=== PATIENT | female | born 1935 | race Caucasian/White ===

== ENCOUNTER 2020-04-30 15:38 | Outpatient (REF) | payer MEDICARE, SELFPAY ==
--- NOTE | 2020-04-30 16:00 | MR_ITS ---
EXAMINATION: MR BRAIN WITHOUT CONTRAST CLINICAL INFORMATION: Hallucinations. COMPARISON: None TECHNIQUE: Routine multiprojectional and multisequential images of the brain were obtained without contrast. FINDINGS: There is no restricted diffusion seen to suspect any acute ischemic changes. Scattered T2 signal changes are seen in the periventricular white matter of both cerebral hemispheres. Some of the signals are perpendicular to the lateral ventricles and may represent demyelination in addition to underlying chronic small vessel ischemic changes. Punctate T2 signal visualized in the left posterior dany. There is no flow void sequencing seen on the gradient-echo sequences to suspect any old or acute hemorrhage. There is no midline shift. The lateral ventricles are symmetrical in size and configuration and mildly prominent consistent with mild cerebral volume loss, appropriate for the patient's age. Normal flow void signal is seen in the major cerebral vasculature. The paranasal sinuses and mastoid air cells are well aerated. MR/MR head/brain wo con IMPRESSION: No acute intracranial process seen. Scattered T2 signal changes in deep white matter of both cerebral hemispheres without mass effect. Some of the lesions are perpendicular to the lateral ventricle suspicious for demyelination superimposed or underlying chronic small vessel ischemia. Solitary T2 lesion is also seen in the left dany.
== END 2020-04-30 15:39 | disposition home or self-care (01) ==
LOC: HO.MRI 15:38
PROVIDERS: PCP Family Medicine; Visit Provider Family Medicine
DX: R44.3 Hallucinations, unspecified (principal)
CPT/HCPCS: 70551

== ENCOUNTER 2021-06-13 14:06 | Outpatient (REF) | payer MEDICARE, SELFPAY ==
--- NOTE | ~2021-06-13 | MM_ITS ---
EXAMINATION: MM SCREENING DIGITAL BREAST TOMOSYNTHESIS, BILATERAL CLINICAL INFORMATION: Screening. Asymptomatic. COMPARISON: Mammography: 07/05/2017, 06/19/2016, 06/08/2016 TECHNIQUE: Digital breast tomosynthesis is performed in both the craniocaudal and mediolateral oblique views along with computer-aided detection (CAD). Synthesized 2D images are generated from the tomosynthesis. FINDINGS: There are scattered areas of fibroglandular density (ACR BI-RADS breast composition Category b). There are no significant masses, abnormal calcifications, or other abnormalities. Parenchymal pattern is similar to prior studies. There is no developing density or architectural abnormality. The axilla and skin contours are unremarkable. No significant changes. MM/MM tomosynthesis screening BI IMPRESSION: No mammographic evidence of malignancy. ASSESSMENT: BI-RADS 1: Negative RECOMMENDATION: Routine annual mammography screening. This patient's information was entered into a reminder system with a target due date for their next mammogram.
== END 2021-06-13 14:07 | disposition home or self-care (01) ==
LOC: HO.MAMMO 14:06
PROVIDERS: PCP Family Medicine; Visit Provider Family Medicine
DX: Z12.31 Encounter for screening mammogram for malignant neoplasm of breast (principal)
CPT/HCPCS: 77063; 77067

== ENCOUNTER 2021-10-07 17:36 | Outpatient (REF) | payer OTHER, SELFPAY ==
--- NOTE | ~2021-10-07 | US_ITS ---
EXAMINATION: US VENOUS ULTRASOUND WITH DOPPLER LOWER EXTREMITY, RIGHT CLINICAL INFORMATION: Chronic bilateral edema with worsening of right leg despite Lasix, rule out DVT COMPARISON: None TECHNIQUE: Ultrasound of the deep veins is performed from the hip to the calf with compression sonography and color and pulse Doppler assessment. Spectral analysis with color-flow imaging is performed. FINDINGS: There is normal venous compression and respiratory variation and augmented flow. The visualized common femoral vein, superficial femoral vein, profunda femoral vein, popliteal vein, and the trifurcation region shows no evidence of deep venous thrombosis. Limited evaluation of the calf veins due to underlying edema. If the patient's symptoms persist, followup ultrasound in 5 days 7 days might be of value to exclude proximal propagation from a non-visualized calf vein. US/US venous duplex LE RT IMPRESSION: No DVT demonstrated in the right lower extremity. Subcutaneous edema.
== END 2021-10-07 17:37 | disposition home or self-care (01) ==
LOC: HO.US 17:36
PROVIDERS: PCP Family Medicine; Visit Provider Nurse Practitioner Primary Care
DX: R60.0 Localized edema (principal); M79.89 Other specified soft tissue disorders
CPT/HCPCS: 93971

== ENCOUNTER 2022-01-12 15:47 | Outpatient (REF) | payer OTHER, SELFPAY ==
--- NOTE | ~2022-01-12 | MR_ITS ---
EXAMINATION: MRI OF THE BRAIN WITHOUT CONTRAST CLINICAL INFORMATION: 86-year-old with worsening daily headaches. COMPARISON: 04/30/2020 MRI. TECHNIQUE: Multiplanar multisequence MR imaging of the brain was done without IV contrast. FINDINGS: Brain Volume: Mild generalized diffuse parenchymal volume loss within the limitations of qualitative assessment, similar to the previous exam. Structural: No malformations. Brain and Meninges: DWI sequence demonstrates no restricted diffusion to suggest acute or subacute cerebral ischemia. Redemonstrated are numerous patchy and punctate zones of FLAIR/T2 signal hyperintensity within the subcortical and deeper periventricular white matter of both cerebral hemispheres similar in overall distribution and extent to the previous study but with slight progression in the right mendiola radiata, again consistent with chronic ischemic microangiopathy. Minimal patchy T2 hyperintensity in the dany on the left and a punctate T2 hyperintensity in the left dorsal dany, stable in appearance also likely reflecting chronic ischemic microangiopathy. Gradient refocused imaging demonstrates no evidence for hemorrhage, hemosiderin staining or abnormal mineral deposition. No extra-axial fluid collections, space-occupying process or mass effect are identified. Ventricles and Subarachnoid Spaces: The ventricular system and subarachnoid spaces are consistent with mild volume loss without hydrocephalus, stable in appearance. Orbital Structures: Bilateral lens extractions are noted. Otherwise, the visualized orbital structures are grossly unremarkable within the limitations of the study. Vascular: Signal voids are noted in the visualized major intracranial vessels. Osseous Structures, Sinuses/Mastoids, Extracranial Soft Tissues: Grossly unremarkable. MR/MR head/brain wo con IMPRESSION: 1. Findings most consistent with chronic ischemic microangiopathy in the white matter of both cerebral hemispheres and within the dany with some chronic ischemic changes in the deep capsular structures as well, similar in appearance to the previous exam with slight progression in the right mendiola radiata since prior study. 2. No evidence for hemorrhage, subacute or acute infarction, extra-axial fluid collection, space-occupying process, mass effect or hydrocephalus.
== END 2022-01-12 15:48 | disposition home or self-care (01) ==
LOC: HO.MRI 15:47
PROVIDERS: Visit Provider Family Medicine
DX: R51.9 Headache, unspecified (principal)
CPT/HCPCS: 70551

== ENCOUNTER 2022-07-25 16:44 | Emergency (ER) | payer OTHER, SELFPAY ==
--- NOTE | ~2022-07-25 | CT_ITS ---
EXAMINATION: CT HEAD WITHOUT CONTRAST CLINICAL INFORMATION: Some conjunctival hemorrhage COMPARISON: MRI 01/12/2022 TECHNIQUE: Contiguous axial imaging was performed from the skull base to vertex without intravenous administration of contrast. This CT examination was performed using dose optimization techniques as appropriate, variously including the following: *Automated exposure control *Adjustment of mA and/or kV according to patient size (this includes techniques or standardized protocols for targeted exams where dose is matched to indication/reason for exam; i.e. extremities or head) *Use of iterative reconstruction technique DLP: 525 mGy-cm FINDINGS: No intra-axial or extra-axial hemorrhage. No acute territorial infarct. Ventricles and sulci appear normal. Preservation of betancourt-white matter differentiation. No mass, mass effect, or midline shift. No fracture. The mastoid air cells and visualized paranasal sinuses are clear. CT/CT head/brain wo IV con IMPRESSION: No acute intracranial pathology.
--- NOTE | 2022-07-25 16:55 | ED_ITS ---
HPI - Eye Problem General Chief complaint: Eye Problems <THOMAS Elizabeth - Last Filed: 07/25/22 17:07> Stated complaint: Eye swelling, headache, history of sinus strokes <THOMAS Elizabeth Last Filed: 07/25/22 17:07> Time Seen by Provider: 07/25/22 18:22 <THOMAS Elizabeth Last Filed: 07/25/22 17:07> Source: patient and family <THOMAS Tellez Last Filed: 07/25/22 20:38> Mode of arrival: ambulatory <THOMAS Tellez Last Filed: 07/25/22 20:38> Limitations: no limitations <THOMAS Tellez Last Filed: 07/25/22 20:38> History of Present Illness HPI Narrative: 87-year-old female history of CVA, early dementia presenting to the emerg ency department with daughters were concerned patient's right eye appears bloody, and patient has been having headache since yesterday. According to daughter and patient last night patient had a frontal headache described as pressure, felt like her typical, hours later patient noted that her right eye appeared to have blood in it. This is never happened to her before. Patient is taking aspirin however no other blood thinners. Patient states she has been having intermittent headache since last night, no headache at the moment. Patient tells me her right eye feels uncomfortable however denies vision changes, pain. Patient does not wear contact lenses. Patient denies nausea, vomiting, chest pain, shortness of breath, dizziness, weakness. Family brought her in for evaluation mainly for the right eye they tell me and they are concerned because she has a history of ?mini strokes <THOMAS Tellez Last Filed: 07/25/22 20:38> Related Data Home medications: Previous Rx's Medication Instructions Recorded cephalexin 500 mg tablet 500 mg PO Q6H 10 days #40 tabs 07/25/22 epinephrine 0.3 mg/0.3 mL 0.3 mg (0.3 mL) IM Q4H PRN 07/25/22 injection, auto-injector (EpiPen anaphylaxis #2 ea 2-Lavelle) <THOMAS Elizabeth Last Filed: 07/25/22 17:07> Allergies/adverse reactions: Allergies Allergy/AdvReac Type Severity Reaction Status Date / Time penicillin V Allergy Intermediate Rash Verified 07/25/22 19:26 Penicillins Allergy Intermediate RASH Verified 07/25/22 19:26 From Lipitor Allergy Intermediate ITCHING Uncoded 01/18/20 16:56 From Toprol XL Allergy Intermediate ITCHING Uncoded 01/18/20 16:56 gabapentin Allergy Unknown Unknown Uncoded 07/25/22 19:26 lipitor Allergy Unknown Unknown Uncoded 07/25/22 19:26 lyrica Allergy Unknown Unknown Uncoded 07/25/22 19:26 <THOMAS Elizabeth - Last Filed: 07/25/22 17:07> Review of Systems Review of Systems: Constitutional : No Weight loss, No Fever, No Chills, No Fatigue, No Malaise ENT/Mouth : No sore throat, No Rhinorrhea Eyes: No Eye Pain, No Swelling, + Redness Cardiovascular : No Chest Pain, No SOB, No Dyspnea on Exertion, No Orthopnea, No Edema, No Palpitations Respiratory : No Cough, No Sputum, No Wheezing Gastrointestinal : No Nausea, No Vomiting, No Diarrhea, No Constipation, No abdominal Pain, No Hematochezia, No Melena Genitourinary : No Dysuria, No Urinary Frequency, No Hematuria, Musculoskeletal : No joint pain, No Myalgias, No Joint Swelling Skin : No Skin Lesions, No rash Neuro : No Weakness, No Numbness, No Dizziness, No Headache Psych : No Anxiety/Panic, No Depression All other systems reviewed and are negative <TOHMAS Tellez - Last Filed: 07/25/22 20:38> Yes all other systems are reviewed and are negative <THOMAS Tellez - Last Filed: 07/25/22 20:38> [facility] Past Medical History Attestation statement: The following information was validated with the patient. <THOMAS Tellez - Last Filed: 07/25/22 20:38> Source: old records reviewed and nursing notes reviewed <THOMAS Tellez Last Filed: 07/25/22 20:38> Social History Social History: Social History Alcohol intake: never Smoked in Last 30 Days: No Use of substances other than those prescribed or required for medical reasons: No Advance Directives: No Advance Directives Information Provided: No <THOMAS Elizabeth - Last Filed: 07/25/22 17:07> Physical Exam Vital Signs: Vital Signs: Last Vital Signs Temp 97 F 07/25/22 20:15 Pulse 81 07/25/22 20:15 Resp 15 07/25/22 20:15 BP 149/51 H 07/25/22 20:15 Pulse Ox 98 07/25/22 20:15 O2 Del Method Room Air 07/25/22 20:15 BMI result Body Mass Index 32.9 <THOMAS Elizabeth - Last Filed: 07/25/22 17:07> Vital Signs: Last Vital Signs Temp 97 F 07/25/22 20:15 Pulse 81 07/25/22 20:15 Resp 15 07/25/22 20:15 BP 149/51 H 07/25/22 20:15 Pulse Ox 98 07/25/22 20:15 O2 Del Method Room Air 07/25/22 20:15 BMI result Body Mass Index 32.9 Vital signs stable <THOMAS Tellez - Last Filed: 07/25/22 20:38> Appearance: Alert.? Oriented X3.? No acute distress.? Head: Normocephalic, atraumatic, no step-offs or deformities Eyes: Pupils equal, round and reactive to light.? Right eye with subconjunctival hemorrhage images below. Normal left eye. No pain with eye movements. Extraocular movements intact. There is slight erythema surrounding the right eye that is warm. Eye pressures: L 12, R 9 ENT: Pharynx normal.? Neck: Normal inspection.? Neck supple.? CVS: Normal heart rate and rhythm.? Pulses normal.? Respiratory: No respiratory distress.? Breath sounds normal.? Abdomen: Soft and nontender.? Skin: Skin warm and dry.? Normal skin color.? Normal skin turgor.? Extremities: No lower extremity edema.? No calf ttp. Global weakness Neuro: Oriented X 3.? No motor deficit.? No sensory deficit. CN 2-12 intact . Normal [id number], negative Romberg and pronator drift. 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 <THOMAS Tellez - Last Filed: 07/25/22 20:38> Course Course Course Narrative: RME--87yo F w/PMHx CVA on ASA, dementia c/o complaining of right eye erythema since waking this morning with associated headache. Patient wears glasses denies contacts. Family also reports intermittent bruising. Denies trauma/injury. Denies headache at present. Denies vision change/loss Diffusely erythematous right eye subconjunctival hemorrhage, no hyphema, no evidence of globe rupture, PERRLA, EOMs intact. No evidence of trauma Labs, INR, visual acuity <THOMAS Elizabeth Last Filed: 07/25/22 17:07> Reevaluation(s) Reevaluation #1: CBC with slight leukopenia, chemistry without acute electrolyte abnormalities requiring intervention. Coags unremarkable. Head CT pending. Neuro exam nonfocal. Negative NIH stroke scale. Pending CT. <THOMAS Tellez Last Filed: 07/25/22 20:38> Time: 18:52 <THOMAS Tellez Last Filed: 07/25/22 20:38> Reevaluation #2: Normal eye pressures. Patient reports no headache and she feels fine. CT of the head with no acute intracranial pathology. Patient feels well. NIH stroke scale 0. Only global weakness noted. Will have her follow-up with ophthalmology. No signs of TIA, stroke, posterior stroke. She did get Keflex for erythema surrounding right eye, tolerated it well. Although she does have an allergy to penicillin I did send her home with an EpiPen educated patient and family on proper use in case patient has an alert allergic reaction however I have low suspicion for this. Educated patient on diagnosis and treatment plan, answered all question, patient verbalizes understanding. At this time patient will be discharged home, advised to return with new or worsening symptoms. Educated on worrisome signs and symptoms and when to return. At this time I feel comfortable discharge home. <THOMAS Tellez - Last Filed: 07/25/22 20:38> Time: 20:37 <THOMAS Tellez Last Filed: 07/25/22 20:38> Consultations Consultation #1: This case was discussed with my attending who agrees with diagnosis and treatment plan. <THOMAS Tellez - Last Filed: 07/25/22 20:38> Medications Administered Discontinued Medications Generic Name Dose Route Start Last Admin Trade Name Freq PRN Reason Stop Dose Admin Cephalexin HCl 500 mg 07/25/22 19:15 07/25/22 19:26 Cephalexin 500 Mg Capsule PO 07/25/22 19:16 500 mg ONCE ONE Administration Morphine Sulfate 15 mg 07/25/22 19:17 07/25/22 19:27 Morphine Sulfate Immed Release 15 Mg Tablet PO 07/25/22 19:18 15 mg ONCE ONE Administration <THOMAS Elizabeth - Last Filed: 07/25/22 17:07> Medications Administered Discontinued Medications Generic Name Dose Route Start Last Admin Trade Name Freq PRN Reason Stop Dose Admin Cephalexin HCl 500 mg 07/25/22 19:15 07/25/22 19:26 Cephalexin 500 Mg Capsule PO 07/25/22 19:16 500 mg ONCE ONE Administration Morphine Sulfate 15 mg 07/25/22 19:17 07/25/22 19:27 Morphine Sulfate Immed Release 15 Mg Tablet PO 07/25/22 19:18 15 mg ONCE ONE Administration <THOMAS Tellez - Last Filed: 07/25/22 20:38> Medical Decision Making Medical Decision Making [facility] Narrative: 1825 87-year-old female presents for evaluation of red eye with possible blood, and headaches intermittent since yesterday. No trauma. Not on blood thinners. Physical exam with right-sided subconjunctival hemorrhage with surrounding perio rbital erythema and warmth. No painful eye movements. Regular rate and rhythm. Lungs clear. Abdomen soft nontender nondistended. Global weakness however no focal neuro deficits. Cerebellar function intact. Likely subconjunctival hemorrhage with right periorbital cellulitis. No signs of orbital cellulitis. Unlikely stroke, posterior stroke, TIA, wet macular degeneration or acute closed angle glaucoma. Plan at this time basic labs, head CT, eye pressures, <THOMAS Tellez Last Filed: 07/25/22 20:38> Differential Diagnosis Differential Diagnoses: The differential diagnosis associated with the presentation includes <THOMAS Tellez Last Filed: 07/25/22 20:38> Likely subconjunctival hemorrhage with right periorbital cellulitis. No signs of orbital cellulitis. Unlikely stroke, posterior stroke, TIA, wet ma cular degeneration or acute closed angle glaucoma. <THOMAS Tellez - Last Filed: 07/25/22 20:38> Admission/Observation Consideration of admission/observation: Escalation of care including admission/observation considered <THOMAS Tellez - Last Filed: 07/25/22 20:38> Unlikely <THOMAS Tellez - Last Filed: 07/25/22 20:38> Lab Data MDM Lab Attestation statement: I reviewed the patient's lab results. <THOMAS Tellez - Last Filed: 07/25/22 20:38> Result Diagrams: 07/25/22 17:20 07/25/22 17:20 <THOMAS Elizabeth - Last Filed: 07/25/22 17:07> Labs: Lab Results 07/25/22 07/25/22 07/25/22 Range/Units 17:20 17:20 17:20 WBC 4.2 L (4.8-10.8) X10*3/uL RBC 4.01 L (4.20-5.50) X10*6/uL Hgb 12.2 (12.0-16.0) g/dl Hct 37.6 (37.0-47.0) % MCV 93.8 (80.0-98.0) fL MCH 30.4 (27.0-33.0) pg MCHC 32.4 (31.0-35.0) g/dl RDW 13.7 (11.0-16.0) % Plt Count 174 (160-400) X10*3/uL MPV 10.8 (9.4-12.3) fL Immature Gran % (Auto) 0.5 H (0.0-0.4) % Neut % (Auto) 55.9 (45-73) % Lymph % (Auto) 31.7 (20-40) % Smith % (Auto) 11.7 H (2-11) % Eos % (Auto) 0.0 (0-4) % Baso % (Auto) 0.2 (0-2) % Lymph # (Auto) 1.3 (1.2-4.9) X10*3/uL Smith # (Auto) 0.5 (0.1-1.2) X10*3/uL Eos # (Auto) 0.0 (0.0-0.4) X10*3/uL Baso # (Auto) 0.0 (0.0-0.2) X10*3/uL Abs Immat Gran (auto) 0.02 (0.00-0.03) X10*3/uL Absolute Neuts (auto) 2.3 (2.0-8.3) x10*3/uL Absolute Nucleated RBC 0.000 (0.0-0.012) X10*3/uL Nucleated RBC % (auto) 0.0 (0.0-0.2) /100WBC PT 10.5 (10.0-13.1) SEC INR 0.9 (0.9-1.1) Sodium 140 (135-145) mmol/L Potassium 4.1 (3.3-5.1) mmol/L Chloride 107 (96-108) mmol/L Carbon Dioxide 24 (22-29) mmol/L Anion Gap 13 (12-20) BUN 17 H (9-16) mg/dL Creatinine 1.09 (0.5-1.4) mg/dL Estim Creat Clear Calc 36.6 Estimated GFR 48 Random Glucose 110 (60-115) mg/dL Calcium 9.4 (8.4-10.2) mg/dL <THOMAS Elizabeth - Last Filed: 07/25/22 17:07> Lab Results 07/25/22 07/25/22 07/25/22 Range/Units 17:20 17:20 17:20 WBC 4.2 L (4.8-10.8) X10*3/uL RBC 4.01 L (4.20-5.50) X10*6/uL Hgb 12.2 (12.0-16.0) g/dl Hct 37.6 (37.0-47.0) % MCV 93.8 (80.0-98.0) fL MCH 30.4 (27.0-33.0) pg MCHC 32.4 (31.0-35.0) g/dl RDW 13.7 (11.0-16.0) % Plt Count 174 (160-400) X10*3/uL MPV 10.8 (9.4-12.3) fL Immature Gran % (Auto) 0.5 H (0.0-0.4) % Neut % (Auto) 55.9 (45-73) % Lymph % (Auto) 31.7 (20-40) % Smith % (Auto) 11.7 H (2-11) % Eos % (Auto) 0.0 (0-4) % Baso % (Auto) 0.2 (0-2) % Lymph # (Auto) 1.3 (1.2-4.9) X10*3/uL Smith # (Auto) 0.5 (0.1-1.2) X10*3/uL Eos # (Auto) 0.0 (0.0-0.4) X10*3/uL Baso # (Auto) 0.0 (0.0-0.2) X10*3/uL Abs Immat Gran (auto) 0.02 (0.00-0.03) X10*3/uL Absolute Neuts (auto) 2.3 (2.0-8.3) x10*3/uL Absolute Nucleated RBC 0.000 (0.0-0.012) X10*3/uL Nucleated RBC % (auto) 0.0 (0.0-0.2) /100WBC PT 10.5 (10.0-13.1) SEC INR 0.9 (0.9-1.1) Sodium 140 (135-145) mmol/L Potassium 4.1 (3.3-5.1) mmol/L Chloride 107 (96-108) mmol/L Carbon Dioxide 24 (22-29) mmol/L Anion Gap 13 (12-20) BUN 17 H (9-16) mg/dL Creatinine 1.09 (0.5-1.4) mg/dL Estim Creat Clear Calc 36.6 Estimated GFR 48 Random Glucose 110 (60-115) mg/dL Calcium 9.4 (8.4-10.2) mg/dL <THOMAS Tellez - Last Filed: 07/25/22 20:38> Independent Interpretation I performed an independent interpretation of an: CT Scan <THOMAS Tellez - Last Filed: 07/25/22 20:38> Radiology Impression Discussion of test interpretation with radiology: I have reviewed the radiologist's reading. <THOMAS Tellez - Last Filed: 07/25/22 20:38> Core Measures AMI core measures followed: Yes <THOMAS Tellez - Last Filed: 07/25/22 20:38> Measure exclusions: not indicated <THOMAS Tellez - Last Filed: 07/25/22 20:38> Critical Care Time Critical Care Time Critical Care Time: No <THOMAS Tellez - Last Filed: 07/25/22 20:38> Discharge Plan Discharge Clinical Impression: Subconjunctival hemorrhage, Periorbital cellulitis, Headache <THOMAS Elizabeth - Last Filed: 07/25/22 17:07> Patient Disposition: Home, Self-Care <THOMAS Elizabeth - Last Filed: 07/25/22 17:07> Instructions: Cellulitis (ED), Subconjunctival Hemorrhage (ED), Acute Headache (DC) <THOMAS Elizabeth - Last Filed: 07/25/22 17:07> Additional Instructions: Take your medications as prescribed. If you were prescribed antibiotics today, it is important that you take your medication to their entirety, do not skip any doses, do not finish them early. Follow-up with your primary care provider this week. Return to the emergency department with new or worsening symptoms. Such as fevers, chills, chest pain, shortness of breath, nausea, vomiting, dizziness, headache, vision changes, lethargy In case of emergency call 911 The subconjunctival hemorrhage should get better on its own and reabsorb. Follow-up with ophthalmology information below EpiPen has been sent to the pharmacy in case patient reacts to Keflex although I have low suspicion. I educated on proper use. Use this is indicated only if patient has shortness of breath, trouble breathing or trouble controlling secretions. CT/CT head/brain wo IV con IMPRESSION: No acute intracranial pathology. ? <THOMAS Elizabeth Last Filed: 07/25/22 17:07> Prescriptions: New cephalexin 500 mg tablet 500 mg PO Q6H 10 Days Qty: 40 0RF epinephrine [EpiPen 2-Lavelle] 0.3 mg/0.3 mL auto-injector 0.3 mg IM Q4H PRN (Reason: anaphylaxis) Qty: 2 0RF <THOMAS Elizabeth - Last Filed: 07/25/22 17:07> Referrals: Jama Claros [Physician] - 3 days Cecilia Finch DO [Primary Care Provider] - 3 days <THOMAS Elizabeth - Last Filed: 07/25/22 17:07>
[2022-07-25 16:58] VITALS: BP 178/58; PULSE 60; RESP 18; TEMP 36.3; O2SAT 100; BMI 32.9
[2022-07-25 17:14] VITALS: BP 173/55; PULSE 68; RESP 16; TEMP 36.1; O2SAT 98
[2022-07-25 17:25] LABS: MANUAL DIFF FLAG NO
[2022-07-25 17:29] LABS: Basophils Percent Auto 0.2 % (0-2); Hematocrit 37.6 % (37.0-47.0); Hemoglobin 12.2 g/dl (12.0-16.0); Imm Gran Abs Auto 0.02 X10*3/uL (0.00-0.03); Imm Gran Pct Auto 0.5 % (0.0-0.4); Lymphocytes Absolute Auto 1.3 X10*3/uL (1.2-4.9); Lymphocytes Percent Auto 31.7 % (20-40); Mean Corpuscular HGB Conc 32.4 g/dl (31.0-35.0); Mean Corpuscular Hemoglobin 30.4 pg (27.0-33.0); Mean Corpuscular Volume 93.8 fL (80.0-98.0); Mean Platelet Volume 10.8 fL (9.4-12.3); Monocytes Absolute Auto 0.5 X10*3/uL (0.1-1.2); Monocytes Percent Auto 11.7 % (2-11); Neutrophils Absolute Auto 2.3 x10*3/uL (2.0-8.3); Neutrophils Percent Auto 55.9 % (45-73); Platelet Count 174 X10*3/uL (160-400); Red Blood Count 4.01 X10*6/uL (4.20-5.50); Red Cell Distribution Width 13.7 % (11.0-16.0); White Blood Count 4.2 X10*3/uL (4.8-10.8)
--- NOTE | 2022-07-25 17:35 | PC.NURSE ---
pt alert, aware of being in the hospital but not oriented to specific place or time. pt has diagnosis of dementia. Pt hypertensive, vitals otherwise stable. Pt reports frequent headaches, but not at this time, pt c/o 2/10 pain below right eye. blood noted in right eye sclera. Vision test not obtained at this time due to pt being unable to read letters. pt was able to identify number of fingers being held up by RN. Pt denies vision changes.
[2022-07-25 17:39] LABS: INTERNATIONAL NORM RATIO 0.9 (0.9-1.1); Prothrombin Time 10.5 SEC (10.0-13.1)
[2022-07-25 17:51] LABS: Anion Gap 13 (12-20); Blood Urea Nitrogen 17 mg/dL (9-16); Calcium 9.4 mg/dL (8.4-10.2); Carbon Dioxide 24 mmol/L (22-29); Chloride 107 mmol/L (96-108); Creatinine Clr Calc Pharmacy 36.6; Estimated Glomerular Filt Rate 48; Glucose Random 110 mg/dL (60-115); Potassium 4.1 mmol/L (3.3-5.1); Sodium 140 mmol/L (135-145)
[2022-07-25] MEDS: cephALEXin 500 MG CAPSULE PO (19:26)
[2022-07-25] MEDS: Morphine Sulfate Immed Release 15 MG TABLET PO (19:27)
--- NOTE | 2022-07-25 19:28 | PC.NURSE ---
provider was notified pt acuity was unable to be done as she is unable to read-provider ok with that. pt medicated per order- provider cleared abx to be given despite allergy to penicillin. family at bedside, call chi withn reach, will continue to monitor.
[2022-07-25 20:15] VITALS: BP 149/51; PULSE 81; RESP 15; TEMP 36.1; O2SAT 98
[2022-07-25] MEDS: diphenhydrAMINE HCL 25 MG CAPSULE 50 MG PO (20:44)
--- NOTE | 2022-07-25 20:44 | PC.NURSE ---
patient had notable hives only to left arm, provider notified, pt medicated with benadryl per order, will monitor and discharge shortly
== END 2022-07-25 21:40 | disposition home or self-care (01) ==
PROVIDERS: Physician Assistant; Emergency Provider Emergency Medicine; PCP Family Medicine
DX: H11.31 Conjunctival hemorrhage, right eye (principal); L03.213 Periorbital cellulitis; R51.9 Headache, unspecified
CPT/HCPCS: 36415; 70450; 80048; 85025; 85610; 99284

== ENCOUNTER 2023-05-28 13:20 | Outpatient (REF) | payer OTHER, SELFPAY ==
[2023-05-28 16:19] LABS: MANUAL DIFF FLAG NO
[2023-05-28 16:23] LABS: Basophils Percent Auto 0.2 % (0-2); Eosinophils Percent Auto 0.2 % (0-4); Hematocrit 35.2 % (37.0-47.0); Hemoglobin 11.4 g/dl (12.0-16.0); Imm Gran Abs Auto 0.01 X10*3/uL (0.00-0.03); Imm Gran Pct Auto 0.2 % (0.0-0.4); Lymphocytes Absolute Auto 1.5 X10*3/uL (1.2-4.9); Lymphocytes Percent Auto 31.5 % (20-40); Mean Corpuscular HGB Conc 32.4 g/dl (31.0-35.0); Mean Corpuscular Volume 95.7 fL (80.0-98.0); Mean Platelet Volume 11.7 fL (9.4-12.3); Monocytes Absolute Auto 0.6 X10*3/uL (0.1-1.2); Monocytes Percent Auto 13.8 % (2-11); Neutrophils Absolute Auto 2.5 x10*3/uL (2.0-8.3); Neutrophils Percent Auto 54.1 % (45-73); Platelet Count 145 X10*3/uL (160-400); Red Blood Count 3.68 X10*6/uL (4.20-5.50); White Blood Count 4.6 X10*3/uL (4.8-10.8)
[2023-05-28 16:34] LABS: Estimated Average Glucose 114 mg/dL; Hemoglobin A1c % 5.6 % (<6.0)
[2023-05-28 16:53] LABS: Alanine Aminotransferase 21 U/L (0-31); Albumin Level 3.8 g/dL (3.5-5.0); Alkaline Phosphatase 148 U/L (39-117); Anion Gap 15 (12-20); Aspartate Amino Transferase 37 U/L (5-31); Bilirubin Direct 0.2 mg/dL (0.0-0.5); Bilirubin Total 0.5 mg/dL (0.0-1.0); Blood Urea Nitrogen 29 mg/dL (9-16); Calcium 9.8 mg/dL (8.4-10.2); Carbon Dioxide 23 mmol/L (22-29); Chloride 108 mmol/L (96-108); Cholesterol 181 mg/dL (<200); Estimated Glomerular Filt Rate 35; Glucose Random 108 mg/dL (60-115); HDL Cholesterol 78 mg/dL (>40); LDL Cholesterol Calculated 92 mg/dL (<100); Potassium 4.5 mmol/L (3.3-5.1); Sodium 141 mmol/L (135-145); Triglycerides 58 mg/dL (<150)
[2023-05-28 16:56] LABS: Creatinine Urine 156.61 mg/dL; Microalbum/Creatinine Ratio Ur 13.4 ug/mg cr (<30)
[2023-05-28 16:58] LABS: Free T4 (Free Thyroxine) 1.02 ng/dL (0.71-1.85); Thyroid Stimulating Hormone 1.91 uIU/mL (0.32-4.0); Vitamin D 25-OH Total 35.4 ng/mL (>30)
== END 2023-05-28 13:21 | disposition home or self-care (01) ==
LOC: HO.HHCL 13:20
PROVIDERS: Visit Provider Family Medicine
DX: E11.22 Type 2 diabetes mellitus with diabetic chronic kidney disease (principal); N18.30 Chronic kidney disease, stage 3 unspecified
CPT/HCPCS: 36415; 80048; 80061; 80076; 82043; 82306; 82570; 83036; 84439; 84443; 85025

== ENCOUNTER 2023-12-13 13:07 | Outpatient (REF) | payer OTHER, SELFPAY ==
[2023-12-13 14:20] LABS: Anion Gap 12 (12-20); Blood Urea Nitrogen 28 mg/dL (9-16); Calcium 9.3 mg/dL (8.4-10.2); Carbon Dioxide 25 mmol/L (22-29); Chloride 107 mmol/L (96-108); Estimated Glomerular Filt Rate 26; Glucose Random 199 mg/dL (60-115); Potassium 3.8 mmol/L (3.3-5.1); Sodium 140 mmol/L (135-145)
[2023-12-13 14:26] LABS: B Type Natriuretic Peptide 127 pg/mL (<100)
== END 2023-12-13 13:08 | disposition home or self-care (01) ==
LOC: HO.LAB 13:07
PROVIDERS: PCP Family Medicine; Visit Provider Internal Medicine Cardiovascular Disease
DX: I27.20 Pulmonary hypertension, unspecified (principal)
CPT/HCPCS: 36415; 80048; 83880

== ENCOUNTER 2024-01-10 12:54 | Outpatient (REF) | payer OTHER, SELFPAY ==
[2024-01-10 13:21] LABS: MANUAL DIFF FLAG NO
[2024-01-10 13:53] LABS: Basophils Percent Auto 0.4 % (0-2); Hematocrit 32.1 % (37.0-47.0); Hemoglobin 10.1 g/dl (12.0-16.0); Imm Gran Abs Auto 0.03 X10*3/uL (0.00-0.03); Imm Gran Pct Auto 0.6 % (0.0-0.4); Lymphocytes Absolute Auto 1.5 X10*3/uL (1.2-4.9); Lymphocytes Percent Auto 29.1 % (20-40); Mean Corpuscular HGB Conc 31.5 g/dl (31.0-35.0); Mean Corpuscular Hemoglobin 29.6 pg (27.0-33.0); Mean Corpuscular Volume 94.1 fL (80.0-98.0); Mean Platelet Volume 10.6 fL (9.4-12.3); Monocytes Absolute Auto 0.5 X10*3/uL (0.1-1.2); Monocytes Percent Auto 9.9 % (2-11); Neutrophils Absolute Auto 3.1 x10*3/uL (2.0-8.3); Platelet Count 148 X10*3/uL (160-400); Red Blood Count 3.41 X10*6/uL (4.20-5.50); Red Cell Distribution Width 14.3 % (11.0-16.0); White Blood Count 5.2 X10*3/uL (4.8-10.8)
[2024-01-10 14:17] LABS: B Type Natriuretic Peptide 222 pg/mL (<100)
[2024-01-10 14:27] LABS: Anion Gap 13 (12-20); Blood Urea Nitrogen 24 mg/dL (9-16); Calcium 9.5 mg/dL (8.4-10.2); Carbon Dioxide 24 mmol/L (22-29); Chloride 108 mmol/L (96-108); Estimated Glomerular Filt Rate 36; Sodium 141 mmol/L (135-145)
[2024-01-10 14:28] LABS: Anion Gap 12 (12-20); Blood Urea Nitrogen 23 mg/dL (9-16); Calcium 9.6 mg/dL (8.4-10.2); Carbon Dioxide 23 mmol/L (22-29); Chloride 109 mmol/L (96-108); Estimated Glomerular Filt Rate 34; Glucose Random 157 mg/dL (60-115); Sodium 140 mmol/L (135-145)
[2024-01-10 15:29] LABS: Appearance Urine Cloudy; Color Urine Dark Yellow; Glucose Urine UA Negative (Negative); Leukocyte Esterase Urine Trace (Negative); Nitrite Urine Negative (Negative); PH 5.5 (5.0-9.0); Specific Gravity - Urine >= 1.030 (1.005-1.025); UMIC TRIGGER UA YES; Urine Blood Negative (Negative); Urine Ketones Trace mg/dL (Negative); Urine Protein Trace mg/dL (Neg-Trace)
[2024-01-10 15:34] LABS: Bacteria Urine 3+ (None Seen); RBC Urine 0-2 /HPF (0-2); WBC Urine 0-5 /HPF (0-5)
[2024-01-10 17:30] LABS: Creatinine Urine 220.19 mg/dL; Protein/Creatinine Ratio, Ur 0.12 (<0.2); Total Protein Urine Random 26 mg/dL (<12)
== END 2024-01-10 12:55 | disposition home or self-care (01) ==
LOC: HO.LAB 12:54
PROVIDERS: Absent Provider Internal Medicine Nephrology; PCP Family Medicine; Visit Provider Internal Medicine Cardiovascular Disease
DX: I12.9 Hypertensive chronic kidney disease with stage 1 through stage 4 chronic kidney disease, or unspecified chronic kidney disease (principal); N18.31 Chronic kidney disease, stage 3a; N25.0 Renal osteodystrophy
CPT/HCPCS: 36415; 80048; 80051; 81001; 82043; 82310; 82565; 82570; 83880; 84156; 84520; 85025

== ENCOUNTER 2024-03-17 13:47 | Outpatient (REF) | payer OTHER, SELFPAY ==
--- NOTE | ~2024-03-17 | US_ITS ---
EXAMINATION: US ABDOMEN COMPLETE CLINICAL INFORMATION: Intermittent right upper quadrant pain. COMPARISON: CT abdomen and pelvis 04/07/2016. Ultrasound abdomen 04/03/2009. TECHNIQUE: Real-time imaging of the abdominal viscera. FINDINGS: PANCREAS: The visualized portion of the pancreas head and body are normal, portion of the pancreatic body and tail, not visualized are obscured by bowel gas. ABDOMINAL AORTA: Visualized portion of the aorta is normal, distal aorta obscured by bowel gas. INFERIOR VENA CAVA: Visualized portions are normal. LIVER: Heterogeneous liver texture could be sequela of underlying liver parenchymal disease. The liver is normal in size. The liver contour is normal. Parenchymal echogenicity is normal. No focal hepatic lesion. There is no intrahepatic biliary duct dilatation seen. GALLBLADDER: Normal. The gallbladder is physiologically distended without evidence of stones, sludge, polyps, wall thickening or pericholecystic fluid. COMMON BILE DUCT: Normal in caliber measuring 0.4-0.6 cm in diameter. RIGHT KIDNEY: Normal. No hydronephrosis. No renal calculi or focal parenchymal lesions. The kidney measures 8.2 cm in maximum dimension. LEFT KIDNEY: Normal. No hydronephrosis. No renal calculi or focal parenchymal lesions. The kidney measures 8.0 cm in maximum dimension. SPLEEN: Normal. The spleen measures 10.9 cm in maximum dimension. FREE FLUID: None. US/US abdomen complete IMPRESSION: 1. No ultrasound evidence of gallbladder disease or gallstones. 2. Heterogeneous liver texture could be sequela of underlying liver parenchymal disease such as liver cirrhosis. Electronically signed by: Gurjit Yi MD 03/19/2024 07:31 PM [facility]
== END 2024-03-17 13:48 | disposition home or self-care (01) ==
LOC: HO.US 13:47
PROVIDERS: PCP Family Medicine; Visit Provider Family Medicine
DX: R10.11 Right upper quadrant pain (principal)
CPT/HCPCS: 76700

== ENCOUNTER 2024-05-08 13:51 | Outpatient (REF) | payer OTHER, SELFPAY ==
[2024-05-08 14:46] LABS: Hematocrit 35.1 % (37.0-47.0); Hemoglobin 11.1 g/dl (12.0-16.0); Mean Corpuscular HGB Conc 31.6 g/dl (31.0-35.0); Mean Corpuscular Hemoglobin 29.8 pg (27.0-33.0); Mean Corpuscular Volume 94.4 fL (80.0-98.0); Mean Platelet Volume 10.9 fL (9.4-12.3); Platelet Count 153 X10*3/uL (160-400); Red Blood Count 3.72 X10*6/uL (4.20-5.50); Red Cell Distribution Width 14.2 % (11.0-16.0); White Blood Count 4.7 X10*3/uL (4.8-10.8)
[2024-05-08 14:54] LABS: INTERNATIONAL NORM RATIO 0.9 (0.9-1.1); Prothrombin Time 10.9 SEC (10.9-12.4)
[2024-05-08 14:56] LABS: Estimated Average Glucose 117 mg/dL; Hemoglobin A1C 112.3288 umol/L; Hemoglobin A1c % 5.7 % (<6.0); Partial Thromboplastin Time 36.6 SEC (26.0-36.8); Total Hemoglobin (HGBA1C) 2871.7081 umol/L
[2024-05-08 15:15] LABS: Creatinine Urine 208.08 mg/dL; Microalbum/Creatinine Ratio Ur 5.7 ug/mg cr (<30)
[2024-05-08 16:18] LABS: Alanine Aminotransferase 16 U/L (0-31); Albumin Level 3.7 g/dL (3.5-5.0); Alkaline Phosphatase 143 U/L (39-117); Amylase 78 U/L (28-100); Anion Gap 11 (12-20); Aspartate Amino Transferase 46 U/L (5-31); Bilirubin Direct 0.3 mg/dL (0.0-0.5); Bilirubin Total 0.8 mg/dL (0.0-1.0); Blood Urea Nitrogen 26 mg/dL (9-16); Calcium 9.6 mg/dL (8.4-10.2); Carbon Dioxide 23 mmol/L (22-29); Chloride 112 mmol/L (96-108); Cholesterol 161 mg/dL (<200); Estimated Glomerular Filt Rate 36; Free T4 (Free Thyroxine) 1.23 ng/dL (0.71-1.85); Glucose Random 117 mg/dL (60-115); HDL Cholesterol 72 mg/dL (>40); LDL Cholesterol Calculated 77 mg/dL (<100); Lipase 27 U/L (8-78); Potassium 4.3 mmol/L (3.3-5.1); Sodium 142 mmol/L (135-145); Thyroid Stimulating Hormone 1.45 uIU/mL (0.32-4.0); Total Protein 6.9 g/dL (6.5-8.0); Triglycerides 63 mg/dL (<150); Vitamin D 25-OH Total 27.8 ng/mL (>30)
== END 2024-05-08 13:52 | disposition home or self-care (01) ==
LOC: HO.LAB 13:51
PROVIDERS: PCP Family Medicine; Visit Provider Internal Medicine Cardiovascular Disease
DX: I89.0 Lymphedema, not elsewhere classified (principal); E11.22 Type 2 diabetes mellitus with diabetic chronic kidney disease; N18.30 Chronic kidney disease, stage 3 unspecified; R23.3 Spontaneous ecchymoses; I10 Essential (primary) hypertension; R10.11 Right upper quadrant pain
CPT/HCPCS: 36415; 80048; 80061; 80076; 82043; 82150; 82306; 82570; 83036; 83690; 84439; 84443; 85027; 85610; 85730

== ENCOUNTER 2024-10-04 15:50 | Outpatient (REF) | payer OTHER, SELFPAY ==
--- NOTE | ~2024-10-04 | US_ITS ---
EXAMINATION: US TRIPLEX LOWER EXTREMITY, LEFT CLINICAL INFORMATION: Left leg edema. COMPARISON: None available. TECHNIQUE: Color-flow triplex imaging with spectral analysis and compression Doppler were performed on the left lower extremity. FINDINGS: Respiratory variation, normal compression and augmented flow are noted throughout the left lower extremity. The visualized common femoral vein, superficial femoral vein, profunda femoral vein, popliteal vein and midcalf peroneal and posterior tibial venous segments show no evidence of deep venous thrombosis. There is no Dowell's cyst. US/US venous duplex LE LT IMPRESSION: No evidence of deep venous thrombosis involving the left lower extremity. Electronically signed by: Alessio Hinojosa MD 10/05/2024 09:17 AM EDT
--- OUTSIDE RECORDS SUMMARY | 2024-10-04 15:52 | XMS_ITS | Encounter Summary ---
Author Organization [employer] Address [address] [place] [address] Care Team Providers Care Oncology Transplant Network Manager Name Role Phone Cecilia Finch DO Primary Care Provider [phone] Reason for Visit * Reason Onset Date Comments Hospital Follow-up 11/08/2023 Encounter Details Date Type Department Care Team ([facility] st Contact Info) Description 11/08/2023 Telephone [facility] [address] [place] [address] Cecilia Finch DO [address] [place] [address] Hospital Follow-up Social History Tobacco Use Types Packs/Day Years Used Date Smoking Tobacco: Former Cigarettes Passive Smoke Exposure: Never Smokeless Tobacco: Never Alcohol Use Standard Drinks/Week Comments Never 0 (1 standard drink = 0.6 oz pur e alcohol) Depression Answer Date Recorded Patient Health Questionnaire-9 Score 1 06/11/2022 Housing Stability Answer Date Recorded What is your housing situation today? I have dee rm 09/21/[address] you li ve. Do you have problems with any of the following? Mold 09/21/2023 Food Insecurity Answer Date Recorded Within the past 12 months, y ou worried that your food would run out before you got money to buy more: Never True 09/21/2023 Within the past 12 months,th e food you bought just didn't last and you didn't have enough money to get more: Never True Transportation Answer Date Recorded In the past 12 months, has l ack of transportation kept you from medical appts, meetings, work or from getting things needed for daily living? No 09/21/2023 Utilities Answer Date Recorded In the past 12 months, has t he electric, gas, oil or water company threatened to shut off services in your home? No 09/21/2023 Depression Answer Date Recorded Patient Health Questionnaire-2 Score 1 06/11/2022 Comments Unknown Sex and Gender Information Value Date Recorded Sex Assigned at Female 03/02/2022 10:16 AM EDT Legal Sex Female 10:16 AM EDT Gender Identity Female 03/02/2022 10:16 AM EDT Sexual Orientation Straight 03/02/2022 10 :16 AM EDT documented as of this encounter Miscellaneous Notes * Telephone Encounter - Pauline Medina - 11/08/2023 1:50 PM EDT Tc from pt requesting a HDF appt. Hospital: [facility] Date of admission: 11/03/23 Discharge date: 11/07/23 Diagnosed: chest pain and fluid retention documented in this encounter Plan of Treatment Upcoming Encounters Date Type Department Care Team (Late st Contact Info) Description 10/20/2024 11:00 AM EDT Telemedicine [facility] [address] [place] [address] Surekha George RN documented as of this encounter Visit Diagnoses Not on filedocumented in this encounter Additional Health Concerns Assessment Noted Time PHQ-9 Depression Total Score: 1 06/11/19 23 1:29 PM EST documented as of this encounter Care Teams Oncology Transplant Network Manager Relationship Specialty Start Date End Date Cecilia Finch DO [address] [place] [address] PCP - General Family Medicine 01/09/13 documented as of this encounter
== END 2024-10-04 15:51 | disposition home or self-care (01) ==
LOC: HO.US 15:50
PROVIDERS: PCP Family Medicine; Visit Provider Family Medicine
DX: R60.0 Localized edema (principal)
CPT/HCPCS: 93971

== ENCOUNTER → 2024-10-04 16:17 | Outpatient (BNV) | payer OTHER, SELFPAY | PROVIDERS: PCP Family Medicine; Visit Provider Radiology Diagnostic Radiology | DX: R60.0 Localized edema (principal) | CPT/HCPCS: 93971 ==

== ENCOUNTER 2024-10-27 16:44 | Emergency (ER) | payer OTHER, SELFPAY ==
--- NOTE | ~2024-10-27 | CT_ITS ---
CLINICAL HISTORY: trauma CT Brain without contrast Comparison: CT/SR - CT HEAD/BRAIN WO IV CON - 07/25/22 19:06 EDT FINDINGS: Cortical sulci: There is diffuse prominence of the cortical sulci compatible with age-related atrophy. Ventricles: Normal for age Brain parenchyma: There is patchy lucency throughout the deep white matter indicating chronic microvascular leukomalacia. Extra axial spaces: Small hyperdensity of the left frontal area series 4, image 44. Posterior Fossa: Normal Extracranial soft tissues: Normal Additional abnormality: None IMPRESSION: Small hyperdensity of the left frontal area is likely to be imaging artifact. A small subdural hematoma can not be totally excluded by the current examination. CT head follow-up is recommended. This document has been electronically signed by: Asad Disla MD on 10/27/2024 18:59:15
--- NOTE | ~2024-10-27 | XR_ITS ---
CLINICAL HISTORY: trauma 4 view right knee Comparison: None provided Findings: No fractures or dislocations. Severe degenerative changes of the knee with joint space narrowing of the lateral compartment and osteophytes. No joint effusion. There is soft tissue edema of the knee. No radiopaque foreign body. IMPRESSION: 1. No acute findings. Severe degenerative change of the knee. This document has been electronically signed by: Asad Disla MD on 10/27/2024 18:00:25
--- NOTE | ~2024-10-27 | CT_ITS ---
CLINICAL HISTORY: trauma CT cervical spine without contrast Comparison: None provided Findings: Vertebral alignment is within normal limits. There is mild degenerative change. Acute displaced fracture of the C5 spinous process. Possible linear lucency of the left C4 and C5 articular facets seen on the lateral view series 32, image 38. Visualized intracranial contents are unremarkable. No cervical fluid collections or masses. Lung apices are clear. IMPRESSION: Acute displaced fracture of the C5 spinous process. Possible linear lucency of the left C4 and C5 articular facets. Acute nondisplaced fracture can not be excluded. This document has been electronically signed by: Asad Disla MD on 10/27/2024 18:51:43
--- NOTE | ~2024-10-27 | CT_ITS ---
CLINICAL HISTORY: trauma CT maxillofacial without contrast Comparison: None provided Findings: Acute mildly displaced fractures of the nasal bone. Temporomandibular joints are intact. Paranasal sinuses and mastoid air cells clear. Orbital contents within normal limits. Visualized intracranial contents are within normal limits. No foreign bodies. IMPRESSION: Acute fractures of the nasal bone. This document has been electronically signed by: Asad Disla MD on 10/27/2024 19:09:26
--- NOTE | ~2024-10-27 | XR_ITS ---
CLINICAL HISTORY: trauma 4 view left knee Comparison: None provided Findings: No fractures or dislocations. Severe degenerative changes of the knee with joint space narrowing and osteophytes. There are soft tissue calcifications adjacent to the distal femur. No joint effusion. No radiopaque foreign body. IMPRESSION: 1. No acute findings. Severe degenerative change of the knee. This document has been electronically signed by: Asad Disla MD on 10/27/2024 18:00:16
[2024-10-27 17:09] VITALS: BP 146/58; BP 149/45; PULSE 72; RESP 18; TEMP 36.4; O2SAT 100; O2SAT 97; BMI 27.8
[2024-10-27 17:16] VITALS: BP 149/45; PULSE 72; RESP 18; TEMP 36.4; O2SAT 100
--- NOTE | 2024-10-27 17:22 | ECG_ITS ---
Test Reason : fall Blood Pressure : */* mmHG Vent. Rate : 68 BPM Atrial Rate : 68 BPM P-R Int : 180 ms QRS Dur : 108 ms QT Int : 450 ms P-R-T Axes : 62 -30 56 degrees QTcB Int : 478 ms Normal sinus rhythm Left axis deviation Moderate voltage criteria for LVH, may be normal variant ( R in aVL , Rodríguez product ) Abnormal ECG When compared with ECG of 03-Apr-2014 13:44, No significant change was found Referred By: Rk Acharya Electronically Signed By: MERLE YOUNG
[2024-10-27 18:00] VITALS: BP 134/40; PULSE 70; RESP 12; TEMP 37.1; O2SAT 98
[2024-10-27 19:12] LABS: MANUAL DIFF FLAG NO
[2024-10-27 19:19] LABS: Basophils Absolute Auto 0.1 X10*3/uL (0.0-0.2); Basophils Percent Auto 0.9 % (0-2); Eosinophils Absolute Auto 0.4 X10*3/uL (0.0-0.4); Eosinophils Percent Auto 4.4 % (0-4); Hemoglobin 10.1 g/dl (12.0-16.0); Imm Gran Abs Auto 0.08 X10*3/uL (0.00-0.03); Imm Gran Pct Auto 0.9 % (0.0-0.4); Lymphocytes Absolute Auto 1.2 X10*3/uL (1.2-4.9); Lymphocytes Percent Auto 12.8 % (20-40); Mean Corpuscular HGB Conc 32.6 g/dl (31.0-35.0); Mean Corpuscular Hemoglobin 30.3 pg (27.0-33.0); Mean Corpuscular Volume 93.1 fL (80.0-98.0); Mean Platelet Volume 10.5 fL (9.4-12.3); Monocytes Absolute Auto 0.6 X10*3/uL (0.1-1.2); Monocytes Percent Auto 6.5 % (2-11); Neutrophils Absolute Auto 6.7 x10*3/uL (2.0-8.3); Neutrophils Percent Auto 74.5 % (45-73); Platelet Count 145 X10*3/uL (160-400); Red Blood Count 3.33 X10*6/uL (4.20-5.50); Red Cell Distribution Width 15.4 % (11.0-16.0)
[2024-10-27 19:31] LABS: Alanine Aminotransferase 28 U/L (0-31); Albumin Level 3.1 g/dL (3.5-5.0); Alkaline Phosphatase 154 U/L (39-117); Anion Gap 11 (12-20); Bilirubin Total 0.8 mg/dL (0.0-1.0); Blood Urea Nitrogen 27 mg/dL (9-16); Calcium 8.2 mg/dL (8.4-10.2); Carbon Dioxide 22 mmol/L (22-29); Chloride 115 mmol/L (96-108); Creatinine Clr Calc Pharmacy 24.8; Estimated Glomerular Filt Rate 31; Glucose Random 150 mg/dL (60-115); Lipase 76 U/L (8-78); Potassium 3.8 mmol/L (3.3-5.1); Sodium 144 mmol/L (135-145)
[2024-10-27] MEDS: Lidocaine HCl 1 % 20 ML VIAL 10 ML INFILTRATI (19:36)
[2024-10-27 19:41] LABS: Aspartate Amino Transferase 51 U/L (5-31)
--- NOTE | 2024-10-27 20:41 | ED_ITS ---
HPI - General Adult General Chief complaint: Fall Stated complaint: mechanical fall, knee pain Time Seen by Provider: 10/27/24 17:14 Source: patient, family (granddaughter), RN notes reviewed, old records reviewed and medical assisting program director Mode of arrival: EMS Limitations: language barrier History of Present Illness ED Provider: Marck HPI narrative: 89-year-old female with a past medical history significant for dementia, hyperlipidemia, peripheral edema, constipation presents for evaluation after a fall. The patient was at her daughter's house which is next door. The patient has tried walking to the bathroom when she tripped falling face 1st. She landed on her nose and her knees. There was no reported loss of consciousness. She is not anticoagulated but does take a baby aspirin daily At the time my evaluation the patient denies any pain, she does arrive in a C- collar EMS reported the patient was complaining of neck pain, the patient denies neck pain to me. She has a laceration to her forehead and her nose Related Data Previous Rx's ?Medication ?Instructions ?Recorded doxycycline hyclate 100 mg capsule 100 mg PO BID 10 da ys #20 caps 07/25/22 epinephrine 0.3 mg/0.3 mL 0.3 mg (0.3 mL) IM Q4H PRN 0 07/25/22 injection, auto-injector (EpiPen anaphylaxis #2 ea 2-Lavelle) Allergies Allergy/AdvReac Type Severity Reaction Status Date / Time penicillin V Allergy Intermediate Rash Verified 10/27/24 17:14 Penicillins Allergy Intermediate RASH Verified 10/27/24 17:14 From Lipitor Allergy Intermediate ITCHING Uncoded 10/27/24 17:14 From Toprol XL Allergy Intermediate ITCHING Uncoded 10/27/24 17:14 gabapentin Allergy Unknown Unknown Uncoded 10/27/24 17:14 lipitor Allergy Unknown Unknown Uncoded 10/27/24 17:14 lyrica Allergy Unknown Unknown Uncoded 10/27/24 17:14 Review of Systems 2 Constitutional: Constitutional: Denies chills, Denies fever(s), Denies frequent falls and Denies headache(s) Eyes: Eyes: Denies blurry vision and Denies exophthalmos ENT: Denies dizziness, Denies dry mouth, Denies ear discharge and Denies headache(s) Cardiovascular: Cardiovascular: Denies chest pain, Denies chest pain at rest and Denies dyspnea on exertion Respiratory: Respiratory: Denies cough and Denies dyspnea on exertion Gastrointestinal: Gastrointestinal: Denies abdominal pain, Denies nausea and Denies vomiting Musculoskeletal: Musculoskeletal: Denies arthralgias, Reports joint swelling and Denies limited range of motion Integumentary/Breasts: Skin/Breast: Denies rash and Reports unusual bruising Neurologic: Denies dizziness, Denies frequent falls and Denies headache(s) Psychiatric: Psychiatric: Denies anxiety PMFSH Social History Social History (System 05/28/23 @ 15:11 by Penny Graf) Alcohol intake: never Advance Directives: Yes Advance Directives Information Provided: Yes Advance Directives on File: No Do you have a plan to hurt others: No Plan Physical Exam ED Vital Signs: Vital Signs - 24 hr 10/27/24 17:09 10/27/24 17:16 10/27/24 18:00 Temperature 97.6 F 97.6 F 98.7 F Pulse Rate 72 72 70 Respiratory Rate 18 18 12 Blood Pressure 149/45 H 149/45 H 134/40 L Pulse Oximetry 100 100 98 Oxygen Delivery Method Room Air Room Air Room Air BMI result Body Mass Index 27.8 Const General: healthy appearing, comfortable, no acute distress, alert and awake Nutritional Appearance: well nourished Orientation/consciousness: patient oriented x3 HENMT Other: There is an L shaped laceration to the bridge of the nose. There is surrounding ecchymosis. There is a 2 cm linear laceration to the right frontal temporal region Throat: Yes posterior oropharynx normal Eyes Eyelids: Yes eyelids normal Conjunctivae: conjunctivae normal Sclerae: sclerae normal Corneas: corneas normal Pupils: Equal, round and reactive pupils present EOM: EOMs intact bilaterally Neck Other: C-collar present Neck: No full ROM Resp Effort & Inspection: normal respiratory effort, able to speak in complete sentences and not labored Back/Spine/Pelvis Cervical Spine: collar present Skin General skin exam: elasticity normal Neuro General: patient oriented x3 Cranial nerves: Yes Equal, round and reactive pupils present and Yes Bilaterally intact EOM present Extrem Other: Moving all extremities well. Ecchymosis to the bilateral knees with the patient is able to flex them Course Reevaluation(s) Reevaluation #1: Patient's CT scan show bilateral nasal bone fractures, she also has a questionable small intracranial hemorrhage. By my view this is most likely artifact, however there was a trauma with a fall from standing position. The patient also is in a C-collar and has a C5 spinous fracture and a questionable C4 and C5 articular facet nondisplaced fractures. Due to the questionable intracranial hemorrhage and cervical spine fractures we will discuss with [facility] trauma line Time: 20:05 Reevaluation #2: Received call back from [facility] trauma team, the patient will be accepted to [facility] Emergency Department as a trauma consult. I updated the granddaughter at bedside, images were uploaded to the [employer] power chair and the patient will be booked for transport to [facility] Emergency Department. Time: 21:17 Medications Administered Discontinued Medications Generic Name Dose Route Start Last Admin Trade Name Harrison PRN Reason Stop Dose Admin Lidocaine HCl 10 ml 10/27/24 19:26 10/27/24 19:36 Lidocaine Hcl 1 % 20 Ml Vial INFILTRATI 10/27/24 19:27 10 ml ONCE ONE Administration Procedures Laceration Laceration 1: Site: face (Forehead) Side (If applicable): right Size (cm): 2 Description: linear Depth: simple, single layer Local Anesthetic: lidocaine 1% Amount of anesthesia used (mL): 3 Pre-repair: wound explored, irrigated extensively and deep structures intact Skin layer closed with: nylon Size (cm): 5-0 Number of sutures: 4 Technique: simple, interrupted Laceration 2: Site: face (Nasal bridge) Size (cm): 2 Description: irregular ( L-shaped ) Depth: simple, single layer Local Anesthetic: lidocaine 1% Amount of anesthesia used (mL): 2 Pre-repair: wound explored and irrigated extensively Skin layer closed with: nylon Size (cm): 5-0 Number of sutures: 4 Technique: simple, interrupted Medical Decision Making Medical Decision Making MDM Narrative: 89-year-old female presents for evaluation after a witnessed nonsyncopal fall. She tripped over the divider between the bathroom and the hallway. She fell face 1st striking her nose and landing on her knees. X-rays of the knees were ordered. I also ordered a CT scan of the brain, cervical spine and facial bones. The patient arrives in a C-collar which she will remain on until radiology reports. The patient's daughter is here who reports the patient is acting appropriately and at her baseline, she is conversive but does forget what happened frequently due to her dementia. Otherwise there are no focal neuro deficits. She is moving all extremities well, no facial droop. The 2 larger lacerations we will be sutured, see procedure note Differential Diagnosis Differential Diagnoses: The differential diagnosis associated with the presentation includes Facial fracture Intracranial hemorrhage Skull fracture Cervical spine fracture Contusion Knee fracture Laceration Lab Data MDM Lab Attestation statement: I reviewed the patient's lab results. No leukocytosis. The patient has a mild normocytic anemia consistent with a labs back to May 22, 2023. Platelet count is at her baseline of 126994. Chemistries are significant for a chloride of 115, elevated BUN of 27 with a creatinine of 1.59 comfortable with these are consistent with the patient's baseline. Glucose is elevated to 150 but no evidence of DKA, CO2 in his within normal limits in the anion gap is low at 11. 10/27/24 19:08 10/27/24 19:08 Labs: Lab Results 10/27/24 Range/Units 19:08 WBC 9.0 (4.8-10.8) X10*3/uL RBC 3.33 L (4.20-5.50) X10*6/uL Hgb 10.1 L (12.0-16.0) g/dl Hct 31.0 L (37.0-47.0) % MCV 93.1 (80.0-98.0) fL MCH 30.3 (27.0-33.0) pg MCHC 32.6 (31.0-35.0) g/dl RDW 15.4 (11.0-16.0) % Plt Count 145 L (160-400) X10*3/uL MPV 10.5 (9.4-12.3) fL Immature Gran % (Auto) 0.9 H (0.0-0.4) % Neut % (Auto) 74.5 H (45-73) % Lymph % (Auto) 12.8 L (20-40) % Ingham % (Auto) 6.5 (2-11) % Eos % (Auto) 4.4 H (0-4) % Baso % (Auto) 0.9 (0-2) % Lymph # (Auto) 1.2 (1.2-4.9) X10*3/uL Ingham # (Auto) 0.6 (0.1-1.2) X10*3/uL Eos # (Auto) 0.4 (0.0-0.4) X10*3/uL Baso # (Auto) 0.1 (0.0-0.2) X10*3/uL Abs Immat Gran (auto) 0.08 H (0.00-0.03) X10*3/uL Absolute Neuts (auto) 6.7 (2.0-8.3) x10*3/uL Absolute Nucleated RBC 0.000 (0.0-0.012) X10*3/uL Nucleated RBC % (auto) 0.0 (0.0-0.2) /100WBC Sodium 144 (135-145) mmol/L Potassium 3.8 (3.3-5.1) mmol/L Chloride 115 H (96-108) mmol/L Carbon Dioxide 22 (22-29) mmol/L Anion Gap 11 L (12-20) BUN 27 H (9-16) mg/dL Creatinine 1.59 H (0.5-1.4) mg/dL Estim Creat Clear Calc 24.8 Estimated GFR 31 Random Glucose 150 H (60-115) mg/dL Calcium 8.2 L D (8.4-10.2) mg/dL Total Bilirubin 0.8 (0.0-1.0) mg/dL AST 51 H (5-31) U/L ALT 28 (0-31) U/L Alkaline Phosphatase 154 H (39-117) U/L Total Protein 6.0 L (6.5-8.0) g/dL Albumin 3.1 L (3.5-5.0) g/dL Lipase 76 (8-78) U/L Independent Interpretation I performed an independent interpretation of an: CT Scan (Questionable left fronto temporal bleed versus artifact favored to be artifact) Radiology Impression Discussion of test interpretation with radiology: I have reviewed the radiologist's reading. Radiologist Impression: Findings: Acute mildly displaced fractures of the nasal bone. Temporomandibular joints are intact. Paranasal sinuses and mastoid air cells clear. Orbital contents within normal limits. Visualized intracranial contents are within normal limits. No foreign bodies. IMPRESSION: Acute fractures of the nasal bone. This document has been electronically signed by: Asad Disla MD on 10/27/2024 19:09:26 FINDINGS: Cortical sulci: There is diffuse prominence of the cortical sulci compatible with age-related atrophy. Ventricles: Normal for age Brain parenchyma: There is patchy lucency throughout the deep white matter indicating chronic microvascular leukomalacia. Extra axial spaces: Small hyperdensity of the left frontal area series 4, image 44. Posterior Fossa: Normal Extracranial soft tissues: Normal Additional abnormality: None IMPRESSION: Small hyperdensity of the left frontal area is likely to be imaging artifact. A small subdural hematoma can not be totally excluded by the current examination. CT head follow-up is recommended. This document has been electronically signed by: Asad Disla MD on 10/27/2024 18:59:15 Findings: Vertebral alignment is within normal limits. There is mild degenerative change. Acute displaced fracture of the C5 spinous process. Possible linear lucency of the left C4 and C5 articular facets seen on the lateral view series 32, image 38. Visualized intracranial contents are unremarkable. No cervical fluid collections or masses. Lung apices are clear. IMPRESSION: Acute displaced fracture of the C5 spinous process. Possible linear lucency of the left C4 and C5 articular facets. Acute nondisplaced fracture can not be excluded. This document has been electronically signed by: Asad Disla MD on 10/27/2024 18:51:43 Findings: No fractures or dislocations. Severe degenerative changes of the knee with joint space narrowing of the lateral compartment and osteophytes. No joint effusion. There is soft tissue edema of the knee. No radiopaque foreign body. IMPRESSION: 1. No acute findings. Severe degenerative change of the knee. This document has been electronically signed by: Asad Disla MD on 10/27/2024 18:00:25 Findings: No fractures or dislocations. Severe degenerative changes of the knee with joint space narrowing and osteophytes. There are soft tissue calcifications adjacent to the distal femur. No joint effusion. No radiopaque foreign body. IMPRESSION: 1. No acute findings. Severe degenerative change of the knee. This document has been electronically signed by: Asad Disla MD on 10/27/2024 18:00:16 Discharge Plan Discharge Clinical Impression: Fracture of nasal bone, C5 cervical fracture, Facial laceration Patient Disposition: Xfer Acute Care Hospital Transfer Details: [facility] emergency department Prescriptions: No Action epinephrine [EpiPen 2-Lavelle] 0.3 mg/0.3 mL auto-injector 0.3 mg IM Q4H PRN (Reason: anaphylaxis) Qty: 2 0RF doxycycline hyclate 100 mg capsule 100 mg PO BID 10 Days Qty: 20 0RF Print Language: Greenlandic
[2024-10-27 21:17] VITALS: BP 121/37; PULSE 71; RESP 14; TEMP 36.5; O2SAT 100
--- NOTE | 2024-10-27 22:48 | PC.NURSE ---
Reprt to Deonte at [facility]
[2024-10-27 23:08] VITALS: BP 121/37; PULSE 71; RESP 14; TEMP 36.6; O2SAT 100
== END 2024-10-27 23:12 | disposition short-term general hospital (02) ==
PROVIDERS: Physician Assistant; Emergency Provider Emergency Medicine Emergency Medical Services; PCP Family Medicine
DX: S02.2XXA Fracture of nasal bones, initial encounter for closed fracture (principal); S12.400A Unspecified displaced fracture of fifth cervical vertebra, initial encounter for closed fracture; S01.81XA Laceration without foreign body of other part of head, initial encounter; S01.21XA Laceration without foreign body of nose, initial encounter; W01.0XXA Fall on same level from slipping, tripping and stumbling without subsequent striking against object, initial encounter; Y93.89 Activity, other specified; Y92.009 Unspecified place in unspecified non-institutional (private) residence as the place of occurrence of the external cause; Y99.9 Unspecified external cause status
CPT/HCPCS: 12013; 36415; 70450; 70486; 72125; 73562; 80053; 83690; 85025; 93005; 99285; J2003

== ENCOUNTER → 2024-10-27 17:21 | Outpatient (BNV) | payer OTHER, SELFPAY | PROVIDERS: PCP Family Medicine; Visit Provider Nuclear Medicine | DX: S12.400A Unspecified displaced fracture of fifth cervical vertebra, initial encounter for closed fracture (principal); S02.2XXA Fracture of nasal bones, initial encounter for closed fracture; R90.82 White matter disease, unspecified; M25.562 Pain in left knee; M25.561 Pain in right knee | CPT/HCPCS: 70450; 70486; 72125; 73562 ==

== ENCOUNTER → 2024-10-27 17:22 | Outpatient (BNV) | payer OTHER, SELFPAY | PROVIDERS: Emergency Provider Emergency Medicine Emergency Medical Services; PCP Family Medicine; Visit Provider Internal Medicine | DX: R94.31 Abnormal electrocardiogram [ECG] [EKG] (principal); W19.XXXA Unspecified fall, initial encounter | CPT/HCPCS: 93010 ==

== ENCOUNTER 2025-02-07 13:16 | Inpatient (IN) | payer OTHER, SELFPAY ==
--- NOTE | ~2025-02-07 | XR_ITS ---
EXAMINATION: XR HIP, LEFT CLINICAL INFORMATION: r/o fx hip COMPARISON: None available. TECHNIQUE: Two views of the left hip. Pelvis 1 view. FINDINGS: There is a acute fracture involving the proximal left femoral shaft, mildly comminuted with a dominant oblique fracture plane. There is medial and posterior displacement of the distal bone by shaft width, with prominent overriding of the fracture fragments. There is lateral/anterior angulation of the proximal bone. The left femoral head is well-seated in the acetabulum. Mild left hip arthritis. Normal articulation of the right hip joint. No diastasis of the SI joints or symphysis pubis. No acute pubic rami fractures identified. No acute fractures identified of the pelvis. Bowel gas and stool projected over the sacrum and coccyx limiting evaluation. No abnormal soft tissue calcification. XR/XR hip LT w PEL1V IMPRESSION: Acute, mildly comminuted proximal femoral shaft fracture with bony displacement, angulation of the fracture fragments as detailed above.. Electronically signed by: Perry Meadows MD 02/07/2025 04:00 PM EDT
--- NOTE | ~2025-02-07 | FL_ITS ---
EXAMINATION: XR FLUOROSCOPY WITH IMAGES CLINICAL INFORMATION: Fracture left hip COMPARISON: None available. TECHNIQUE: Fluoroscopy provided to: Dr. Medley Fluoroscopy time: 1.3 minutes DAP: 0.5 mGycm2 Images: 4 FINDINGS: 4 images demonstrate internal fixation with intramedullary mikayla and screw of a proximal femoral fracture. Improved position and alignment as compared to previous. FL/FL guidance in OR IMPRESSION: Status post internal fixation of a proximal femoral fracture. Electronically signed by: Perry Meadows MD 02/09/2025 03:45 PM EDT
--- NOTE | ~2025-02-07 | XR_ITS ---
EXAMINATION: XR CHEST CLINICAL INFORMATION: pre op COMPARISON: None available. TECHNIQUE: AP view of the chest was obtained. FINDINGS: Mild elevation of the left hemidiaphragm. The cardiac, hilar, and mediastinal contours are normal. Aortic mural calcifications. Lungs demonstrate linear opacity in the retrocardiac region, likely discoid atelectasis. Lungs otherwise clear. No pneumothorax or effusion. No focal osseous or soft tissue abnormality. XR/XR chest 1V IMPRESSION: No active pulmonary disease. Electronically signed by: Sy Hough MD 02/07/2025 03:55 PM EDT
--- NOTE | ~2025-02-07 | XR_ITS ---
EXAMINATION: XR HAND, RIGHT CLINICAL INFORMATION: trauma COMPARISON: None available. TECHNIQUE: PA, lateral, and oblique views of the right hand. FINDINGS: Mild diffuse osteopenia. No acute fracture, dislocation, or suspicious bone lesion. There is normal alignment. 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 Mild degenerative arthritis in the first MCP joint and first CMC joint. Carpal bones intact and normally aligned. No soft tissue abnormalities. XR/XR hand RT min 3V IMPRESSION: 1. No acute bony or soft tissue abnormalities. Electronically signed by: Sy Hough MD 02/07/2025 03:57 PM EDT
[2025-02-07 13:37] VITALS: BP 130/60; PULSE 92; O2SAT 99
[2025-02-07 13:52] VITALS: BP 142/62; PULSE 87; RESP 18; TEMP 36.4; O2SAT 98; BMI 28.7
--- NOTE | 2025-02-07 14:23 | ED_ITS ---
HPI - General Adult General Chief complaint: Fall Stated complaint: FALL,HX DMENTIA Time Seen by Provider: 02/07/25 14:22 Source: family Mode of arrival: EMS Limitations: other (dementia) History of Present Illness ED Provider: HPI narrative: 89-year-old woman with a history of dementia, is here with her granddaughter, patient was getting out of bed and she has slid without head injury, neck injury, she has been complaining of left lower extremity pain, currently she is on antibiotics for chronic venous stasis ulcerations that she has. Related Data Previous Rx's ?Medication ?Instructions ?Recorded doxycycline hyclate 100 mg capsule 100 mg PO BID 10 da ys #20 caps 07/25/22 epinephrine 0.3 mg/0.3 mL 0.3 mg (0.3 mL) IM Q4H PRN 0 07/25/22 injection, auto-injector (EpiPen anaphylaxis #2 ea 2-Lavelle) Allergies Allergy/AdvReac Type Severity Reaction Status Date / Time penicillin V Allergy Intermediate Rash Verified 02/07/25 13:54 Penicillins Allergy Intermediate RASH Verified 02/07/25 13:54 From Lipitor Allergy Intermediate ITCHING Uncoded 10/27/24 17:14 From Toprol XL Allergy Intermediate ITCHING Uncoded 10/27/24 17:14 gabapentin Allergy Unknown Unknown Uncoded 10/27/24 17:14 lipitor Allergy Unknown Unknown Uncoded 10/27/24 17:14 lyrica Allergy Unknown Unknown Uncoded 10/27/24 17:14 Review of Systems 2 Review of Systems: Yes Unobtainable due to mental condition [facility] Social History Social History (System 05/28/23 @ 15:11 by Penny Graf) Alcohol intake: never Smoked in Last 30 Days: No Use of substances other than those prescribed or required for medical reasons: No Advance Directives: No Advance Directives Information Provided: Yes Physical Exam ED Vital Signs: Vital Signs - 24 hr 02/07/25 13:52 02/07/25 14:42 Temperature 97.5 F 97.8 F Pulse Rate 87 83 Respiratory Rate 18 16 Blood Pressure 142/62 H 145/66 H Pulse Oximetry 98 100 Oxygen Delivery Method Room Air Room Air BMI result Body Mass Index 28.7 Const Other: General: ?Elderly woman appears of stated age ? ?no facial trauma, no head trauma noted Cervical collar was in place which I removed she has had no neck injury ? ?CV: S1-S2 ? ?Resp: ?No wheezing rales rhonchi no stridor moving air well, no chest wall tenderness ? Abd: ?Bowel sounds are present, no tenderness no rebound no rigidity, pelvis is stable ? ?MSK: Left lower extremity appears to be shortened compared to the right and some bruising to the right hand, ? Skin: Noninfected chronic venous stasis ulcers bilateral lower extremities over the dorsum of the feet I remove dressings in we will have them readdressed ? ?Neuro: ?Alert and oriented, information however was obtained from her granddaughter's patient has dementia and confusion at baseline, noted to be moving upper extremities symmetrically, not really moving her left lower extremity Medical Decision Making Medical Decision Making MDM Narrative: 2:52 PM 02/07/2025 (Dr. Darius Valera): As far as chronic wounds patient has clonic venous stasis dermatitis currently using antibiotics, not on these or purulent, as far as the fall she had slid from bed there was no fall no head injury no neck injury in October of this year she has had a fall and had spinous neck fracture in the cervical region, no indication that she necessitates imaging at this time of the head and neck, seem to be moving her head and neck without any discomfort moving upper extremities, limited motion in her left lower extremity and I have high suspicion for femoral neck fracture, pelvis is otherwise stable, some bruising to the right hand without deformities we will obtain imaging as well 3:49 PM 02/07/2025 (Dr. Darius Valera): X-ray reveals angulated subtrochanteric fracture, communicating to Orthopedics, anticipating medical admission, Rinaldi catheter placement, Differential Diagnosis Differential Diagnoses: The differential diagnosis associated with the presentation includes (Hip fracture, dislocation, pelvic fracture, head injury, neck injury, cellulitis, failure to thrive) Admission/Observation Consideration of admission/observation: Escalation of care including admission/observation considered Consult Healthcare Provider Management of the patient was discussed with: Hospitalist and Shipping & Receiving Lead (orthopaedics) Lab Data [facility] Lab Attestation statement: I reviewed the patient's lab results. 02/07/25 15:10 02/07/25 15:10 Labs: Lab Results 02/07/25 Range/Units 15:10 WBC 8.2 (4.8-10.8) X10*3/uL RBC 2.90 L (4.20-5.50) X10*6/uL Hgb 8.6 L (12.0-16.0) g/dl Hct 25.8 L (37.0-47.0) % MCV 89.0 (80.0-98.0) fL MCH 29.7 (27.0-33.0) pg MCHC 33.3 (31.0-35.0) g/dl RDW 15.6 (11.0-16.0) % Plt Count 195 D (160-400) X10*3/uL MPV 9.7 (9.4-12.3) fL Immature Gran % (Auto) 1.1 H (0.0-0.4) % Neut % (Auto) 78.2 H (45-73) % Lymph % (Auto) 10.7 L (20-40) % [place] % (Auto) 9.4 (2-11) % Eos % (Auto) 0.0 (0-4) % Baso % (Auto) 0.6 (0-2) % Lymph # (Auto) 0.9 L (1.2-4.9) X10*3/uL [place] # (Auto) 0.8 (0.1-1.2) X10*3/uL Eos # (Auto) 0.0 (0.0-0.4) X10*3/uL Baso # (Auto) 0.1 (0.0-0.2) X10*3/uL Abs Immat Gran (auto) 0.09 H (0.00-0.03) X10*3/uL Absolute Neuts (auto) 6.4 (2.0-8.3) x10*3/uL Absolute Nucleated RBC 0.000 (0.0-0.012) X10*3/uL Nucleated RBC % (auto) 0.0 (0.0-0.2) /100WBC Independent Interpretation Interpretation: Left-sided subtrochanteric fracture with angulation, hand x-ray without fractures, My independent chest xray interpretation: Lungs: Lungs are clear bilaterally without evidence of focal consolidation, pleural effusion, or pneumothorax. ?Cardiac silhouette is unremarkable, no obvious mediastinal widening, no obvious bony abnormalities such as fractures. Impression: Normal chest X-ray. Radiology Impression Discussion of test interpretation with radiology: I have reviewed the radiologist's reading. Independent Historian Clinical information obtained from an independent historian. History obtained from or confirmed by: EMS and Other Critical Care Time Critical Care Time Critical Care Time: Yes Total Critical Care Time: 35 Attestation: Time is exclusive of separately billable procedures. Time includes: direct patient care, patient reassessment, coordination of patient care, interpretation of data (laboratory data, pulse oximetry, arterial blood gases and chest xrays), review of patient's medical records, medical consultation and documentation of patient care. Procedures excluded from critical care time: central intravenous line placement and electrocardiography. Discharge Plan Discharge Clinical Impression: Closed subtrochanteric fracture, Venous stasis ulcers Prescriptions: No Action epinephrine [EpiPen 2-Lavelle] 0.3 mg/0.3 mL auto-injector 0.3 mg IM Q4H PRN (Reason: anaphylaxis) Qty: 2 0RF doxycycline hyclate 100 mg capsule 100 mg PO BID 10 Days Qty: 20 0RF Print Language: Moldovan
[2025-02-07 14:42] VITALS: BP 145/66; PULSE 83; RESP 16; TEMP 36.6; O2SAT 100
[2025-02-07 15:14] LABS: MANUAL DIFF FLAG NO
[2025-02-07 15:17] LABS: Hematocrit 25.8 % (37.0-47.0); Hemoglobin 8.6 g/dl (12.0-16.0); Imm Gran Abs Auto 0.09 X10*3/uL (0.00-0.03); Imm Gran Pct Auto 1.1 % (0.0-0.4); Lymphocytes Absolute Auto 0.9 X10*3/uL (1.2-4.9); Mean Corpuscular HGB Conc 33.3 g/dl (31.0-35.0); Mean Corpuscular Hemoglobin 29.7 pg (27.0-33.0); Mean Corpuscular Volume 89.0 fL (80.0-98.0); NRBC Abs Auto 0.000 X10*3/uL (0.0-0.012); NRBC Pct Auto 0.0 /100WBC (0.0-0.2); Platelet Count 195 X10*3/uL (160-400); Red Blood Count 2.90 X10*6/uL (4.20-5.50); White Blood Count 8.2 X10*3/uL (4.8-10.8)
--- NOTE | 2025-02-07 15:56 | ECG_ITS ---
Test Reason : PRE OP Blood Pressure : */* mmHG Vent. Rate : 92 BPM Atrial Rate : 92 BPM P-R Int : 166 ms QRS Dur : 96 ms QT Int : 390 ms P-R-T Axes : 50 -30 66 degrees QTcB Int : 482 ms Normal sinus rhythm Left axis deviation Abnormal ECG When compared with ECG of 27-Oct-2024 17:11, No significant change was found Referred By: Darius Valera Electronically Signed By: SELINA GREENBERG MD
[2025-02-07 16:06] LABS: Alanine Aminotransferase 8 U/L (0-31); Albumin Level 2.9 g/dL (3.5-5.0); Alkaline Phosphatase 161 U/L (39-117); Anion Gap 9 (12-20); Aspartate Amino Transferase 31 U/L (5-31); Blood Urea Nitrogen 22 mg/dL (9-16); Calcium 9.0 mg/dL (8.4-10.2); Carbon Dioxide 22 mmol/L (22-29); Chloride 115 mmol/L (96-108); Creatinine Clr Calc Pharmacy 23.6; Estimated Glomerular Filt Rate 30; Potassium 4.4 mmol/L (3.3-5.1); Sodium 142 mmol/L (135-145); Total Protein 5.9 g/dL (6.5-8.0)
--- NOTE | 2025-02-07 16:18 | PM.IMHP ---
History of Present Illness Date of Service: 02/07/25 Attending physician on admission: [facility] Chief Complaint: fall This is an 89-year-old female with history of dementia who was brought to the emergency department after a fall. Unable to obtain any history from the patient due to underlying dementia. History was obtained from granddaughter at bedside who states she slid out of the bed onto her left side. She has not complained of this pain, dizziness. In the emergency department she was noted to have acute mildly comminuted proximal femoral shaft fracture with displacement. Patient appeared uncomfortable and did require both p.o. and IV narcotics for pain control. The remainder of the ED workup was unremarkable. Of note patient has chronic wound on the left food for which she was recently started on antibiotics. Review of Systems Review of Systems: Unable to obtain review of systems due to underlying dementia [facility] Medical History (Updated 02/07/25 @ 17:16 by THOMAS Clayton) Aortic stenosis CKD (chronic kidney disease) Dementia Social History Household Members: Family Housing: Apartment Do you presently have visiting nurse or other home services: Yes Alcohol intake: never Comment: family at bed side Patient Tobacco Use Status: Never used Tobacco Smoked in Last 30 Days: No Use of substances other than those prescribed or required for medical reasons: No Currently Displaying Signs/Symptoms of Drug Intoxication Withdrawal: No Have you been hit, kicked, punched, or otherwise hurt by someone within the past year? If so, by whom?: No Do you feel safe in your current relationship?: No Current Relationship Is there a partner from a previous relationship who is making you feel unsafe now?: No Are you made to feel afraid or neglected: No Advance Directives: No Advance Directives Information Provided: Yes Do you have a plan to hurt others: No Plan Recently lost weight without trying: No Nutrition Risks: No Nutritional Risk Patient : No Meds Allergies Allergy/AdvReac Type Severity Reaction Status Date / Time penicillin V Allergy Intermediate Rash Verified 02/07/25 13:54 Penicillins Allergy Intermediate RASH Verified 02/07/25 13:54 From Lipitor Allergy Intermediate ITCHING Uncoded 10/27/24 17:14 From Toprol XL Allergy Intermediate ITCHING Uncoded 10/27/24 17:14 gabapentin Allergy Unknown Unknown Uncoded 10/27/24 17:14 lipitor Allergy Unknown Unknown Uncoded 10/27/24 17:14 lyrica Allergy Unknown Unknown Uncoded 10/27/24 17:14 Home Medications ?Medication ?Instructions ?Recorded ?Confirmed ?Last Taken ?Type acetaminophen 650 mg 650 mg PO Q8H PRN Fever Or Pain 02/07/25 02/07/25 Unknown History tablet,extended release (8 Hour Pain Reliever) aspirin 81 mg tablet,delayed 81 mg PO DAILY 02/07/25 02/07/25 02/06/25 History release baclofen 10 mg tablet 5 mg PO DAILY 02/07/25 02/07/25 Unknown History cephalexin 500 mg capsule 500 mg PO TID 02/07/25 02/07/25 02/06/25 History cetirizine 10 mg tablet 5 mg PO DAILY 02/07/25 02/07/25 02/06/25 History cholecalciferol (vitamin D3) 50 50 mcg PO DAILY 02/07/25 02/07/25 02/06/25 History mcg (2,000 unit) capsule diclofenac sodium 1 % topical gel 1 ea topical QID PRN Pain 02/07/25 02/07/25 02/06/25 History docusate sodium 100 mg capsule 100 mg PO BID PRN Constipation 02/07/25 02/07/25 02/06/25 History donepezil 5 mg tablet 5 mg PO DAILY 02/07/25 02/07/25 02/06/25 History furosemide 20 mg tablet 20 mg PO BID 02/07/25 02/07/25 02/06/25 History hydroxyzine HCl 25 mg tablet 25 mg PO Q6H PRN itch 02/07/25 02/07/25 Unknown History melatonin 5 mg tablet 5 - 10 mg PO BEDTIME PRN Sleep 02/07/25 02/07/25 Unknown History nitroglycerin 0.4 mg sublingual 4 mg sublingual Q5M PRN Chest Pain 02/07/25 02/07/25 Unknown History tablet nystatin 100,000 unit/gram topical 1 appl topical DAILY PRN Rash 02/07/25 02/07/25 Unknown History powder (Nystop) omeprazole 20 mg capsule,delayed 20 mg PO DAILY@0630 02/07/25 02/07/25 02/06/25 History release oxycodone 5 mg tablet 5 mg PO QID PRN Pain 02/07/25 02/07/25 02/07/25 History polyethylene glycol 3350 17 17 g PO DAILY PRN Constipation 02/07/25 02/07/25 Unknown History gram/dose oral powder (Miralax) quetiapine 50 mg tablet 50 mg PO BEDTIME 02/07/25 02/07/25 02/06/25 History rosuvastatin 10 mg tablet 10 mg PO BEDTIME 02/07/25 02/07/25 02/06/25 History sulfamethoxazole 800 1 tab PO BID 02/07/25 02/07/25 02/06/25 History mg-trimethoprim 160 mg tablet topiramate 50 mg tablet 50 mg PO DAILY 02/07/25 02/07/25 02/06/25 History Physical Exam Vital Signs and Narrative: Vital Signs: Last Vital Signs Temp 97.8 F 02/07/25 14:42 Pulse 83 02/07/25 14:42 Resp 16 02/07/25 14:42 BP 145/66 H 02/07/25 14:42 Pulse Ox 100 02/07/25 14:42 O2 Del Method Room Air 02/07/25 14:42 BMI result Body Mass Index 28.7 Const: General: alert and awake Nutritional Appearance: overweight Resp: Effort & Inspection: normal respiratory effort, able to speak in complete sentences, no respiratory distress and no use of accessory muscles Cardio: Rate: regular rate GI: Inspection: No distended Palpation (GI): Soft to palpation : Other: marin in place draining yellow urine Skin: Other: left ankle/foot wrapped in clean dry royce wrap Extrem: Other: LLE shortened; left foot/ankle wrapped in royce bandage Results Labs 02/08/25 05:32 02/08/25 05:32 Labs: Laboratory Results - last 24 hr 02/07/25 15:10 MCV 89.0 MCH 29.7 MCHC 33.3 RDW 15.6 Plt Count 195 D MPV 9.7 Immature Gran % (Auto) 1.1 H Neut % (Auto) 78.2 H Lymph % (Auto) 10.7 L [place] % (Auto) 9.4 Eos % (Auto) 0.0 Baso % (Auto) 0.6 Lymph # (Auto) 0.9 L [place] # (Auto) 0.8 Eos # (Auto) 0.0 Baso # (Auto) 0.1 Abs Immat Gran (auto) 0.09 H Absolute Neuts (auto) 6.4 Absolute Nucleated RBC 0.000 Nucleated RBC % (auto) 0.0 Anion Gap 9 L Estim Creat Clear Calc 23.6 Estimated GFR 30 Random Glucose 151 H Calcium 9.0 D Total Bilirubin 0.7 AST 31 ALT 8 Alkaline Phosphatase 161 H Total Protein 5.9 L Albumin 2.9 L Imaging Radiologist's Impressions: Impressions Hand X-Ray 02/07/25 15:26 IMPRESSION: 1. No acute bony or soft tissue abnormalities. Electronically signed by: Sy Hough MD 02/07/2025 03:57 PM EDT RP Hip/Pelvis X-Ray 02/07/25 15:34 IMPRESSION: Acute, mildly comminuted proximal femoral shaft fracture with bony displacement, angulation of the fracture fragments as detailed above.. Electronically signed by: Perry Meadows MD 02/07/2025 04:00 PM EDT RP Chest X-Ray 02/07/25 15:49 IMPRESSION: No active pulmonary disease. Electronically signed by: Sy Hough MD 02/07/2025 03:55 PM EDT RP Assessment and Plan (1) Closed subtrochanteric fracture: Qualifiers: Encounter type: initial encounter Fracture alignment: displaced Laterality: left Qualified Code(s): S72.22XA - Displaced subtrochanteric fracture of left femur, initial encounter for closed fracture Status: Acute Plan This is an 89-year-old female with a history of dementia, venous insufficiency with chronic venous ulcer, who was brought to the emergency department after fall at home found to have left femur fracture Left femoral shaft fracture Management as per Orthopedic team Pain control NPO at midnight plan to obtain echo to assess severity of as no echo in our system hold ASA at above average risk for postoperative complications and high risk for postoperative delirium chronic Venous stasis ulcer wound care continue antibiotics started outpatient, planned for 7 days. end date 02/11 acute on chronic normocytic anemia family denies known bleeding. possibly due to chronic dz/ckd check b12, folate, iron profile no indication for transfusion follow cbc ckd 4 renal function at baseline follows with dr clarissa ROY trend BMP dementia continue baseline medications, seroquel and donepezil h/o headache continue topamax ?CHF on lasix, will hold for now appears euvolemic echo as above of note baclofen is on med list but no recent fill history, will hold dvt ppx - mechanical due to need for surgery code status - DNR/DNI per family Patient will likely require 2 midnight stay in the hospital for management of acute fracture requiring specialist evaluation/surgery as well as adequate pain control Quality Stroke Does the patient have a stroke diagnosis?: No VTE Prior VTE?: No VTE Risk Level:: Medical - moderate - high VTE Device Contraindication: N/A - Device Ordered VTE Drug Contraindication: Treatment Not Indicated
--- NOTE | 2025-02-07 16:37 | PC.NURSE ---
Pt BIBA from home, had slipped out of bed and fell onto bottom. Family home at the time, no head hit, LOC or prolonged down time. Pt has previous neck fx from 3 months ago, c-collared by EMS. Pt noted to have bruising to right hand, left leg is shortened and rotated inward. Pt also has chronic wounds on left foot, family reporting they have worsened and more swelling to left leg. Pt has been on PO ABX since wednesday for poss worsening infection. Pt Malian speaking only, confused at baseline due to dementia.
--- NOTE | 2025-02-07 17:06 | HO.NURTONUR ---
PER MD: This is an 89-year-old female with history of dementia who was brought to the emergency department after a fall. Unable to obtain any history from the patient due to underlying dementia. Per emergency room provider note slid out of bed and began having left-sided pain. In the emergency department she was noted to have acute mildly comminuted proximal femoral shaft fracture with displacement. Patient appeared uncomfortable and did require both p.o. and IV narcotics for pain control. The remainder of the ED workup was unremarkable. PER RN: Alert but very confused, dementia. Burkinan speaking only Admit: left hip fx, chronic wound on left foot IV: 20G in left AC Rinaldi in place by us Pain: Morphine helping with pain Plan: ortho for surgery, wound care Xeroform placed on left foot wound then wrapped with royce bandage Family translates and knows pt well
--- NOTE | 2025-02-07 17:19 | PHA.MEDREC ---
Addendum entered by Ramone Nevarez RPh 02/07/25 17:28: Med rec reviewed Original Note: Pharmacy Consult ? Medication Reconciliation Pharmacy has completed the medication reconciliation. Spoke to patient granddaughter at bedside to confirm med list. Granddaughter had a list of patient medications on her phone. Utilized claims and list from granddaughter to confirm med list. Patient last had her medications yesterday except Oxycondone 5 mg was today.
[2025-02-07 17:47] LABS: Iron 57 mcg/dL (30-160); Percent Iron Saturation 32 % (15-50); Total Iron Binding Capacity 178 mcg/dL (228-428); Unsaturated Iron Binding 121 ug/dL
[2025-02-07 17:51] VITALS: BP 183/77; PULSE 90; RESP 17; TEMP 36.1; O2SAT 99
[2025-02-07 18:00] LABS: Ferritin 109 ng/mL (10-250)
[2025-02-07] MEDS: oxyCODONE HCl Immed Release 5 MG TABLET PO (18:09)
[2025-02-07] MEDS: Sulfamethox/Trimeth 800/160 TABLET 1 TAB PO (19:28)
[2025-02-07] MEDS: 0.9 % Sodium Chloride Flush 3 ML SYRINGE IVFLUSH (19:29)
--- NOTE | 2025-02-07 19:42 | PM.CNOR ---
History of Present Illness HPI Consult date: 02/07/25 Chief complaint: Femoral shaft fracture Narrative: Ms. Carolina Prince is an 89-year-old female with history of dementia who was brought to the emergency department after slipping out of bed landing on her left hip. Unable to obtain any history from the patient due to underlying dementia. History was obtained from granddaughter, Dino, who is at bedside. Dino reports that she is the family member that would consent for the patient's treatment. The patient is ambulatory at baseline with a walker.She lives at home with family who care for her. She has chronic venous stasis and recently started Bactrim and Cephalexin for weeping ulcers on the left lower extremity. The graddaughter reports these ulcers have been present for roughly one year. While in the emergency department x-rays were obtained and she was found to have a left hip subtrochanter fracture. She was admitted to the medicine service with orthopedic consult for further evaluation and treatment. Review of Systems Review of Systems: Yes Unobtainable due to mental status Constitutional: Constitutional: Reports as per HPI Neurologic: Reports confusion Psychiatric: Psychiatric: Reports confusion [facility] Past Medical History Medical History (Updated 02/07/25 @ 17:16 by THOMAS Clayton) Aortic stenosis CKD (chronic kidney disease) Dementia Social History Social History Household Members: Family Housing: Apartment Do you presently have visiting nurse or other home services: Yes Alcohol intake: never Patient Tobacco Use Status: Never used Tobacco Smoked in Last 30 Days: No Use of substances other than those prescribed or required for medical reasons: No Have you been hit, kicked, punched, or otherwise hurt by someone within the past year? If so, by whom?: No Do you feel safe in your current relationship?: No Current Relationship Is there a partner from a previous relationship who is making you feel unsafe now?: No Are you made to feel afraid or neglected: No Advance Directives: No Advance Directives Information Provided: Yes Do you have a plan to hurt others: No Plan Recently lost weight without trying: No Nutrition Risks: No Nutritional Risk Patient : No Meds Allergies Allergy/AdvReac Type Severity Reaction Status Date / Time penicillin V Allergy Intermediate Rash Verified 02/07/25 13:54 Penicillins Allergy Intermediate RASH Verified 02/07/25 13:54 From Lipitor Allergy Intermediate ITCHING Uncoded 10/27/24 17:14 From Toprol XL Allergy Intermediate ITCHING Uncoded 10/27/24 17:14 gabapentin Allergy Unknown Unknown Uncoded 10/27/24 17:14 lipitor Allergy Unknown Unknown Uncoded 10/27/24 17:14 lyrica Allergy Unknown Unknown Uncoded 10/27/24 17:14 Active Medications: Current Medications Acetaminophen (Acetaminophen 325 Mg Tablet) 650 mg PO Q6H PRN PRN Reason: Pain, Mild 1-3,fever,headache Calcium Carbonate (Calcium Carbonate 750 Mg Tab.Chew) 750 mg PO Q4H PRN PRN Reason: Heartburn Cephalexin HCl (Cephalexin 500 Mg Capsule) 500 mg PO TID [facility] Last Admin: 02/07/25 19:31 Dose: 500 mg Docusate Sodium (Docusate Sodium 100 Mg Capsule) 100 mg PO BID [facility] Last Admin: 02/07/25 19:31 Dose: 100 mg Donepezil HCl (Donepezil Hcl 5 Mg Tablet) 5 mg PO DAILY [facility] Hydroxyzine HCl (Hydroxyzine Hcl 25 Mg Tablet) 25 mg PO Q8H PRN PRN Reason: itch/anxiety/restlessness Magnesium Hydroxide (Milk Of Magnesia 30 Ml Oral.Susp) 30 ml PO DAILY PRN PRN Reason: Constipation Melatonin (Melatonin 3 Mg Tablet) 6 mg PO BEDTIME PRN PRN Reason: Insomnia Morphine Sulfate (Morphine Sulfate 2 Mg/Ml Cartridge) 2 mg IVPUSH Q4H PRN; Protocol PRN Reason: Pain, Severe (Pain Scale 7-10) Last Admin: 02/07/25 19:31 Dose: 2 mg Non-Formulary Medication (Rosuvastatin) 10 mg PO BEDTIME [facility] Nystatin (Nystatin Powder 15 Gm Bottle) 1 appl TOPICAL DAILY PRN; Protocol PRN Reason: Rash Omeprazole (Omeprazole 20 Mg Capsule.Dr) 20 mg PO DAILY@30 [facility] Oxycodone HCl (Oxycodone Hcl Immed Release 5 Mg Tablet) 5 mg PO Q6H PRN PRN Reason: Pain, Moderate(Pain Scale 4-6) Last Admin: 02/07/25 18:09 Dose: 5 mg Quetiapine Fumarate (Quetiapine Fumarate 50 Mg Tablet) 50 mg PO BEDTIME [facility] Last Admin: 02/07/25 19:29 Dose: 50 mg Sodium Chloride (0.9 % Sodium Chloride Flush 3 Ml Syringe) 3 ml IVFLUSH QSHIFT [facility] Last Admin: 02/07/25 19:29 Dose: 3 ml Topiramate (Topiramate 25 Mg Tablet) 50 mg PO DAILY [facility] Trimethoprim/Sulfamethoxazole (Sulfamethox/Trimeth 800/160 Tablet) 1 tab PO BID [facility] Last Admin: 02/07/25 19:28 Dose: 1 tab Vitamin D (Cholecalciferol (Vitamin D3) 25 Mcg Tablet) 50 mcg PO DAILY [facility] Home Medications ?Medication ?Instructions ?Recorded ?Confirmed ?Last Taken ?Type acetaminophen 650 mg 650 mg PO Q8H PRN Fever Or Pain 02/07/25 02/07/25 Unknown History tablet,extended release (8 Hour Pain Reliever) aspirin 81 mg tablet,delayed 81 mg PO DAILY 02/07/25 02/07/25 02/06/25 History release baclofen 10 mg tablet 5 mg PO DAILY 02/07/25 02/07/25 Unknown History cephalexin 500 mg capsule 500 mg PO TID 02/07/25 02/07/25 02/06/25 History cetirizine 10 mg tablet 5 mg PO DAILY 02/07/25 02/07/25 02/06/25 History cholecalciferol (vitamin D3) 50 50 mcg PO DAILY 02/07/25 02/07/25 02/06/25 History mcg (2,000 unit) capsule diclofenac sodium 1 % topical gel 1 ea topical QID PRN Pain 02/07/25 02/07/25 02/06/25 History docusate sodium 100 mg capsule 100 mg PO BID PRN Constipation 02/07/25 02/07/25 02/06/25 History donepezil 5 mg tablet 5 mg PO DAILY 02/07/25 02/07/25 02/06/25 History furosemide 20 mg tablet 20 mg PO BID 02/07/25 02/07/25 02/06/25 History hydroxyzine HCl 25 mg tablet 25 mg PO Q6H PRN itch 02/07/25 02/07/25 Unknown History melatonin 5 mg tablet 5 - 10 mg PO BEDTIME PRN Sleep 02/07/25 02/07/25 Unknown History nitroglycerin 0.4 mg sublingual 4 mg sublingual Q5M PRN Chest Pain 02/07/25 02/07/25 Unknown History tablet nystatin 100,000 unit/gram topical 1 appl topical DAILY PRN Rash 02/07/25 02/07/25 Unknown History powder (Nystop) omeprazole 20 mg capsule,delayed 20 mg PO DAILY@0630 02/07/25 02/07/25 02/06/25 History release oxycodone 5 mg tablet 5 mg PO QID PRN Pain 02/07/25 02/07/25 02/07/25 History polyethylene glycol 3350 17 17 g PO DAILY PRN Constipation 02/07/25 02/07/25 Unknown History gram/dose oral powder (Miralax) quetiapine 50 mg tablet 50 mg PO BEDTIME 02/07/25 02/07/25 02/06/25 History rosuvastatin 10 mg tablet 10 mg PO BEDTIME 02/07/25 02/07/25 02/06/25 History sulfamethoxazole 800 1 tab PO BID 02/07/25 02/07/25 02/06/25 History mg-trimethoprim 160 mg tablet topiramate 50 mg tablet 50 mg PO DAILY 02/07/25 02/07/25 02/06/25 History Physical Exam Vital Signs: Vital Signs: Last Vital Signs Temp 96.9 F 02/07/25 17:51 Pulse 90 02/07/25 17:51 Resp 17 02/07/25 17:51 BP 183/77 H 02/07/25 17:51 Pulse Ox 99 02/07/25 17:51 O2 Del Method Room Air 02/07/25 17:51 BMI result Body Mass Index 28.7 Const: General: cooperative, no acute distress and confusion Orientation/consciousness: oriented to person and confusion Resp: Effort & Inspection: normal respiratory effort and able to speak in complete sentences Neuro: General: oriented to person and confusion Extrem: Other: left lower extremity is shortened and externally rotated. Alerts to pain with any motion. EMMA wrap covering ulcers on the lowere extremity. Actively dorsi/plantar flexing. Psych: Appearance: grossly normal Attitude: cooperative Results Labs 02/07/25 15:10 02/07/25 15:10 Labs: Abnormal lab results 02/07/25 Range/Units 15:10 RBC 2.90 L (4.20-5.50) X10*6/uL Hgb 8.6 L (12.0-16.0) g/dl Hct 25.8 L (37.0-47.0) % Immature Gran % (Auto) 1.1 H (0.0-0.4) % Neut % (Auto) 78.2 H (45-73) % Lymph % (Auto) 10.7 L (20-40) % Lymph # (Auto) 0.9 L (1.2-4.9) X10*3/uL Abs Immat Gran (auto) 0.09 H (0.00-0.03) X10*3/uL Chloride 115 H (96-108) mmol/L Anion Gap 9 L (12-20) BUN 22 H (9-16) mg/dL Creatinine 1.64 H (0.5-1.4) mg/dL Random Glucose 151 H (60-115) mg/dL TIBC 178 L (228-428) mcg/dL Alkaline Phosphatase 161 H (39-117) U/L Total Protein 5.9 L (6.5-8.0) g/dL Albumin 2.9 L (3.5-5.0) g/dL H & H 02/07/25 Range/Units 15:10 Hgb 8.6 L (12.0-16.0) g/dl Hct 25.8 L (37.0-47.0) % All other labs normal. Assessment and Plan (1) Closed subtrochanteric fracture: Qualifiers: Encounter type: initial encounter Fracture alignment: displaced Laterality: left Qualified Code(s): S72.22XA - Displaced subtrochanteric fracture of left femur, initial encounter for closed fracture Status: Acute (2) Venous stasis ulcers: Status: Acute Plan I discussed the case with Dr. Medley and explained the extent of the injury to the patient's graddaughter at bedside about the options available which include surgical intervention. I explained the procedure in detail along with the length of recovery and rehab course. I explained the risk, benefits and alternatives. Risk including, but not limited to infection, blood clots, bleeding, non union or malunion and nerve/tissue damage to surrounding areas, worsening dementia, amputation and expiration. I answered all their questions and with their understanding Benjamin has consented to move forward with Operative Fixation of the left hip. The patient will be T&S, med clearance to be obtained from medicine service and NPO after midnight. Procedures Date of Service Date of Service: 02/07/25
[2025-02-08 04:00] VITALS: BP 125/56; PULSE 88; RESP 18; TEMP 36.4; O2SAT 100
[2025-02-08 06:14] LABS: MANUAL DIFF FLAG NO
[2025-02-08 06:22] LABS: Hematocrit 26.1 % (37.0-47.0); Hemoglobin 8.4 g/dl (12.0-16.0); Imm Gran Abs Auto 0.04 X10*3/uL (0.00-0.03); Imm Gran Pct Auto 0.8 % (0.0-0.4); Lymphocytes Absolute Auto 1.1 X10*3/uL (1.2-4.9); Mean Corpuscular HGB Conc 32.2 g/dl (31.0-35.0); Mean Corpuscular Hemoglobin 29.6 pg (27.0-33.0); Mean Corpuscular Volume 91.9 fL (80.0-98.0); NRBC Abs Auto 0.000 X10*3/uL (0.0-0.012); NRBC Pct Auto 0.0 /100WBC (0.0-0.2); Platelet Count 207 X10*3/uL (160-400); Red Blood Count 2.84 X10*6/uL (4.20-5.50); White Blood Count 5.2 X10*3/uL (4.8-10.8)
[2025-02-08 06:38] LABS: Anion Gap 11 (12-20); Blood Urea Nitrogen 23 mg/dL (9-16); Calcium 8.7 mg/dL (8.4-10.2); Carbon Dioxide 20 mmol/L (22-29); Chloride 113 mmol/L (96-108); Creatinine Clr Calc Pharmacy 24.2; Estimated Glomerular Filt Rate 30; Potassium 4.1 mmol/L (3.3-5.1); Sodium 140 mmol/L (135-145)
--- NOTE | 2025-02-08 07:00 | CA_ITS ---
Transthoracic Echocardiogram Patient (Last, First, Middle): Pancho Nation, Gender: F Date of : 1935 Age: 89 Procedure Date: 02/08/2025 Procedure Type: Transthoracic Echocardiogram Location: S3E Height: 162.56 cm Weight: 75.75 kg BSA: 1.81 m2 Heart Rate: bpm BP: 125 / 56 mmHg Event Attendant: CP/REECE Referring MD: Charmaine GUZMAN Public Health Nurse: Dominic Samaniego MD Symptoms: preop eval no recent echo Study Quality: Fair ECG Rhythm: Sinus Conclusions: - 1. Technically borderline study 2. Normal LV ejection fraction of 60 65% with impaired relaxation filling pattern 3. At least moderate aortic stenosis 4. Normal RV systolic pressure 5. No gross pericardial effusion Findings Procedure Information The study quality is limited by the patients inability to tolerate the test. Left Ventricle Normal left ventricular size, thickness, and systolic function. The visually estimated ejection fraction is between 60-65%. Spectral Doppler is indicative of an impaired relaxation filling pattern. Right Ventricle The right ventricle was not well visualized. There is normal right ventricular systolic function. Atria The left atrium is normal in size. Interatrial shunt cannot be excluded. The right atrium was not well visualized. Aortic Valve The aortic valve was not well visualized. There is moderate calcification of the aortic valve. There is moderate aortic valve stenosis. There is no aortic valve regurgitation. Dimensionless index is measured at 0.35, overall findings although valve area is measured at 1 cm2 this is suggestive of moderate aortic stenosis. Lower than expected valve area most likely due to LVOT dimensions Mitral Valve Likely normal mitral valve structure and function. There is no mitral valve regurgitation. There is no mitral valve stenosis. Pulmonic Valve The pulmonic valve is likely normal. Tricuspid Valve Likely normal tricuspid valve structure and function. There is trace tricuspid valve regurgitation. The right ventricular systolic pressure is normal. The right ventricular systolic pressure is 19 mmHg. Normal right atrial pressure. There is no evidence of pulmonary hypertension. Great Vessels The aorta was not well visualized. The pulmonary artery was not well visualized. Venous The inferior vena cava is normal in size and collapses greater than 50% with inspiration. Pericardium/Pleural There is no evidence of pericardial effusion. Prior Study Comparison No prior study available for comparison. Measurements 2D Linear Measurements IVSd: 1.09 0.6-0.9/0.6-1.0 cm LVIDd: 4.38 3.9-5.3/4.2-5.9 cm LVIDd Index: 2.42 2.4-3.2/2.2-3.1 cm/m2 LVIDs: 2.67 2.0-3.6 cm LVPWd: 0.86 0.7-1.1 cm LA Diam: 3.80 2.7-3.8/3.0-4.0 cm LAIDs Index: 2.10 1.5-2.3 cm/m2 LV Mass: 175.89 67-162/88-224 g LV Mass Index: 97.18 43-95/49-115 g/m2 LVOT Diam: 1.90 3.0+(-)1.3 cm 2D Systolic Function EF 4C: 67.80 >55% EF 2C: 63.60 >55% EF BiP: 64.70 >55% Mitral Valve MV Pk E: 0.84 MV PK A: 1.23 MV Decel Time: 187.00 E/A: 0.70 E'Lateral: 7.72 E'Medial: 5.55 E/E' Med: 15.10 E/E' Lat: 10.90 PHT: 55.00 MVA PHT: 4.00 Decel Maury: 4.49 Aortic Valve AoV Pk Erick: 3.35 AoV Mn Erick: 2.33 AoV VTI: 0.68 AoV Pk Grad: 45.00 Aov Mn Grad: 25.00 LELA Cont.VTI: 1.00 LVOT LVOT Pk Erick: 1.26 LVOT Mn Erick: 0.81 LVOT VTI: 0.24 LVOT Pk Grad: 6.00 LVOT Mn Grad: 3.00 LVOT Diam: 1.90 LVOT Area: 2.84 Diastolic Function MV Pk E: 0.84 MV Pk A: 1.23 E/A: 0.70 E'Medial: 5.55 E/E' Med: 15.10 E' Laterial: 7.72 E/E' Lat: 10.90 Right Ventricle TAPSE (mm): 22.20 TVS' Erick: 15.50 Tricuspid Valve TR Pk Erick: 2.03 TR Pk Grad: 16.00 RA Press: 3.00 RVSP: 19.00 Great Vessels Aorta Sinus of Valsalva: 3.24 2.0-3.5 cm Pulmonary Veins Pulm Vein S/D 2.90 Updated in Other Vendor System with Status of Final Dominic Samaniego MD electronically signed on 02/08/2025 12:59:53 PM with status of Final
[2025-02-08 07:16] LABS: Folate 5.7 ng/mL (> or = 4.0); Vitamin B12 588 pg/mL (200-900)
[2025-02-08 08:00] VITALS: BP 136/65; PULSE 93; RESP 16; TEMP 36.3; O2SAT 99
[2025-02-08] MEDS: 0.9 % Sodium Chloride Flush 3 ML SYRINGE IVFLUSH ×2 (09:38→19:59)
[2025-02-08] MEDS: Lactated Ringers 1,000 ML 100 ML IVCONT ×2 (09:47→20:04)
[2025-02-08 12:00] VITALS: BP 126/36; PULSE 99; RESP 20; TEMP 37.1; O2SAT 97
--- NOTE | 2025-02-08 12:04 | HO.PM.IMPN ---
Subjective Subjective Date of Service: 02/08/25 Interval History: F/un on L subthrocanteric fx pain with movement Physical Exam Vital Signs: Vital Signs: Last Vital Signs Temp 97.3 F 02/08/25 08:00 Pulse 93 02/08/25 08:00 Resp 16 02/08/25 08:00 BP 136/65 02/08/25 08:00 Pulse Ox 99 02/08/25 08:00 O2 Del Method Room Air 02/08/25 08:00 BMI result Body Mass Index 28.7 Const: Other: const: General: alert and awake Nutritiona l Appearance: over weight Resp: Effort & Inspectio n: normal respirat ory effort, able t o speak in complet e sentences, no re spiratory distress and no use of acc essory muscles Cardio: Rate: regular rate GI: Inspection: No dis tended Palpation (GI): Soft to palp ation : Other: marin in place draining yel low urine Skin: Other: left ankl e/foot wrapped in clean dry royce wrap Extrem: Other: LLE short ened; left foot/an kle wrapped in royce bandage Objective Data Active Medications Acetaminophen (Acetaminophen 325 Mg Tablet) 650 mg PO Q6H PRN PRN Reason: Pain, Mild 1-3,fever,headache Calcium Carbonate (Calcium Carbonate 750 Mg Tab.Chew) 750 mg PO Q4H PRN PRN Reason: Heartburn Cephalexin HCl (Cephalexin 500 Mg Capsule) 500 mg PO TID [facility] [place] Last Admin: 02/08/25 11:05 Dose: Not Given Documented By: KARELY Non-Admin Reason: NPO Docusate Sodium (Docusate Sodium 100 Mg Capsule) 100 mg PO BID [facility] [place] Last Admin: 02/08/25 11:07 Dose: Not Given Documented By: KARELY Non-Admin Reason: NPO Donepezil HCl (Donepezil Hcl 5 Mg Tablet) 5 mg PO DAILY [facility] [place] Last Admin: 02/08/25 11:07 Dose: Not Given Documented By: KARELY Non-Admin Reason: NPO Hydroxyzine HCl (Hydroxyzine Hcl 25 Mg Tablet) 25 mg PO Q8H PRN PRN Reason: itch/anxiety/restlessness Lactated Ringer's (Lr) 1,000 mls @ 100 mls/hr IVCONT .Q10H [facility] [place] Last Admin: 02/08/25 09:47 Dose: 100 mls/hr Documented By: KARELY Magnesium Hydroxide (Milk Of Magnesia 30 Ml Oral.Susp) 30 ml PO DAILY PRN PRN Reason: Constipation Melatonin (Melatonin 3 Mg Tablet) 6 mg PO BEDTIME PRN PRN Reason: Insomnia Morphine Sulfate (Morphine Sulfate 2 Mg/Ml Cartridge) 2 mg IVPUSH Q4H PRN; Protocol PRN Reason: Pain, Severe (Pain Scale 7-10) Last Admin: 02/08/25 09:37 Dose: 2 mg Documented By: KARELY Non-Formulary Medication (Rosuvastatin) 10 mg PO BEDTIME [facility] [place] Last Admin: 02/08/25 11:09 Dose: Not Given Documented By: KARELY Non-Admin Reason: Med Not Available Nystatin (Nystatin Powder 15 Gm Bottle) 1 appl TOPICAL DAILY PRN; Protocol PRN Reason: Rash Omeprazole (Omeprazole 20 Mg Capsule.Dr) 20 mg PO DAILY@0630 [facility] [place] Last Admin: 02/08/25 05:16 Dose: Not Given Documented By: GARRY Non-Admin Reason: Patient Refused Comments: pt confused and refusing Oxycodone HCl (Oxycodone Hcl Immed Release 5 Mg Tablet) 5 mg PO Q6H PRN PRN Reason: Pain, Moderate(Pain Scale 4-6) Last Admin: 02/07/25 18:09 Dose: 5 mg Documented By: JEFERSON Quetiapine Fumarate (Quetiapine Fumarate 50 Mg Tablet) 50 mg PO BEDTIME [facility] [place] Last Admin: 02/07/25 19:29 Dose: 50 mg Documented By: GARRY Sodium Chloride (0.9 % Sodium Chloride Flush 3 Ml Syringe) 3 ml IVFLUSH QSHIFT [facility] [place] Last Admin: 02/08/25 09:38 Dose: 3 ml Documented By: KARELY Topiramate (Topiramate 25 Mg Tablet) 50 mg PO DAILY [facility] [place] Last Admin: 02/08/25 11:07 Dose: Not Given Documented By: KARELY Non-Admin Reason: NPO Trimethoprim/Sulfamethoxazole (Sulfamethox/Trimeth 800/160 Tablet) 1 tab PO BID [facility] [place] Last Admin: 02/08/25 11:07 Dose: Not Given Documented By: KARELY Non-Admin Reason: NPO Vitamin D (Cholecalciferol (Vitamin D3) 25 Mcg Tablet) 50 mcg PO DAILY [facility] Last Admin: 02/08/25 11:07 Dose: Not Given Documented By: KARELY Non-Admin Reason: NPO Labs 02/08/25 05:32 02/08/25 05:32 Labs: Laboratory Results - last 24 hr 02/07/25 02/07/25 02/08/25 15:10 17:34 05:32 MCV 89.0 91.9 MCH 29.7 29.6 MCHC 33.3 32.2 RDW 15.6 15.8 Plt Count 195 D 207 MPV 9.7 10.2 Immature Gran % (Auto) 1.1 H 0.8 H Neut % (Auto) 78.2 H 62.5 Lymph % (Auto) 10.7 L 21.6 Gates % (Auto) 9.4 12.6 H Eos % (Auto) 0.0 1.5 Baso % (Auto) 0.6 1.0 Lymph # (Auto) 0.9 L 1.1 L Gates # (Auto) 0.8 0.7 Eos # (Auto) 0.0 0.1 Baso # (Auto) 0.1 0.1 Abs Immat Gran (auto) 0.09 H 0.04 H Absolute Neuts (auto) 6.4 3.3 Absolute Nucleated RBC 0.000 0.000 Nucleated RBC % (auto) 0.0 0.0 Anion Gap 9 L 11 L Estim Creat Clear Calc 23.6 24.2 Estimated GFR 30 30 Random Glucose 151 H 114 Calcium 9.0 D 8.7 Iron 57 TIBC 178 L % Saturation 32 Unsat Iron Binding 121 Ferritin 109 Total Bilirubin 0.7 AST 31 ALT 8 Alkaline Phosphatase 161 H Total Protein 5.9 L Albumin 2.9 L Vitamin B12 588 Folate 5.7 Blood Type A Positive Antibody Screen NEGATIVE Assessment and Plan (1) Closed subtrochanteric fracture: Status: Acute (2) Venous stasis ulcers: Status: Acute Plan This is an 89-year-old female with a history of dementia, venous insufficiency with chronic venous ulcer, who was brought to the emergency department after fall at home found to have left femur fracture Left femoral shaft fracture Management as per Orthopedic team Pain control For surgery today plan to obtain echo to assess severity of as no echo in our system hold ASA at above average risk for postoperative complications and high risk for postoperative delirium chronic Venous stasis ulcer wound care continue antibiotics started outpatient, planned for 7 days. end date 02/11 acute on chronic normocytic anemia family denies known bleeding. possibly due to chronic dz/ckd check b12, folate, iron profile no indication for transfusion follow cbc ckd 4 renal function at baseline follows with dr clarissa ROY trend BMP dementia continue baseline medications, seroquel and donepezil h/o headache continue topamax ?CHF on lasix, will hold for now appears euvolemic echo as above of note baclofen is on med list but no recent fill history, will hold dvt ppx - mechanical due to need for surgery code status - DNR/DNI per family Quality Stroke Does the patient have a stroke diagnosis?: No VTE Prior VTE?: No VTE Risk Level:: Medical - moderate - high VTE Device Contraindication: N/A - Device Ordered VTE Drug Contraindication: Treatment Not Indicated
--- NOTE | 2025-02-08 12:08 | MHC.SHP ---
Pre-Procedural Eval Section A - 24 Hr Update-Section A only Date of Service: 02/08/25 The patient is an INPATIENT: Yes Changes since office visit: No Cold of Flu in the past 2 weeks, No New Medical Problems, No Changes in Medication and No Patient answered all questions The patient has been examined within 24 hours of the surgical procedure. The History & Physical has been completed within 30 days and I have reviewed it.: Yes Section B - Complete if H&P > 30 days Chief Complaint: Femoral shaft fracture Allergies: Allergies Allergy/AdvReac Type Severity Reaction Status Date / Time penicillin V Allergy Intermediate Rash Verified 02/07/25 13:54 Penicillins Allergy Intermediate RASH Verified 02/07/25 13:54 From Lipitor Allergy Intermediate ITCHING Uncoded 10/27/24 17:14 From Toprol XL Allergy Intermediate ITCHING Uncoded 10/27/24 17:14 gabapentin Allergy Unknown Unknown Uncoded 10/27/24 17:14 lipitor Allergy Unknown Unknown Uncoded 10/27/24 17:14 lyrica Allergy Unknown Unknown Uncoded 10/27/24 17:14 Plan I have reviewed the history and physical and performed a pertinent physical examination on my patient. No changes have occurred unless specified. Time Spent With Patient Time: Total time managing care of this patient today ____ minutes.
--- NOTE | 2025-02-08 12:56 | PC.NURSE ---
pt cancelled need cardiac clearance echo done today back to room rn aware
--- NOTE | 2025-02-08 12:58 | PM.EVENT ---
Event Note Date of Service: 02/08/25 Time Spent With Patient Time: Total time managing care of this patient today ____ minutes.
--- NOTE | 2025-02-08 13:09 | HO.WOUND ---
Wound Consult: Initial 89 yr old female admitted to [facility] on 02/07/25- See progress notes and H&P for detailed history. Wound consult placed for left ankle. Patient agreeable to assessment and photo documentation. Family at bedside, reports wound has been present for about 1 year, patient scratches area. Patient has been referred to dermatology but appointment time is months out. Family cares for patient at home, reports cleansing area, and keeping it covered. Left foot/ankle Etiology: Venous stasis ulcer/dermatitis Measurements: 1cm x 1cm x 0.1cm Wound Bed: moist pink Drainage / Odor: scant serous, no odor Edges: ? open Mary wound: ? No Induration, Fluctuance or Warmth noted- hemosiderin staining, brown flaking skin Pain: none Goals of Treatment: ? moist healing with xeroform Recommendations: 1. Turn and Reposition every 2 hours and as needed for patient comfort. Use pillows or wedges to support off loading positions. 2. Off Load all bony prominences with use of pillows and heel boots if needed. Apply Preventative foams where needed. 3. Monitor for incontinence and moisture control, use barrier creams when needed for prevention and treatment. 4. Provide adequate and supplemental nutrition. 5. Order or Continue low air loss mattress. 6. When applicable maintain blood glucose levels per Providers order. Left foot/ankle: cleanse with normal saline, pat dry, apply xeroform, cover with ABD pad, wrap with rolled gauze, change daily and PRN Re-consult wound care Nurse for wound deterioration or wound changes.
--- NOTE | 2025-02-08 14:57 | MHC.CM.PN ---
Addendum entered by Ilana Benavides RN 02/08/25 15:37: [facility] does not have a valid HCP. Granddaughter reports they also filled one out at [facility]. Faxed request to [facility] medical records. Original Note: CM assessment completed with granddaughter, Dino, at bedside. IMM delivered. Patient present, dx dementia and unable to answer questions. Per granddaughter, confused at baseline. Lives in a home w/ granddaughter who is day time [employer]PA[employer]. She also has an overnight [employer] for a total of 43.5 hours. Ambulates w/ a walker. Also has a bedside commode. PCP Cecilia Finch DO Copy of HCP requested from [facility]. DP: Awaiting PT eval. Likely STR if patient is able to follow cues. Discussed w/ Dino. Preferences are 1) [facility], 2) [facility], 3) [facility], 4) [facility]. CM will continue to follow.
[2025-02-08 15:10] VITALS: BP 135/61; PULSE 95; RESP 16; TEMP 36.4; O2SAT 96
[2025-02-08 19:05] VITALS: BP 174/71; PULSE 95; RESP 18; TEMP 36.2; O2SAT 94
[2025-02-08] MEDS: Sulfamethox/Trimeth 800/160 TABLET 1 TAB PO (19:58)
[2025-02-08] MEDS: ROSUVASTATIN 10 MG 10 EACH PO (20:01)
[2025-02-09] VITALS (13 sets, daily range): BP systolic 111–175; BP diastolic 49–80; PULSE 85–97; RESP 13–20; TEMP 36–36.5; O2SAT 95–100
[2025-02-09] MEDS: Lactated Ringers 1,000 ML 100 ML IVCONT ×2 (05:23→20:36)
--- NOTE | 2025-02-09 08:30 | PM.PNORT ---
Subjective Subjective Date of Service: 02/09/25 Interval history: Patient is resting in bed No overnight events Pain appears to be managed No additional complaints Physical Exam Vital Signs: Vital Signs: Last Vital Signs Temp 97.5 F 02/09/25 07:54 Pulse 92 02/09/25 07:54 Resp 14 02/09/25 07:54 BP 175/76 H 02/09/25 07:54 Pulse Ox 96 02/09/25 07:54 O2 Del Method Room Air 02/09/25 07:54 BMI result Body Mass Index 28.7 Const: General: cooperative, no acute distress and confusion Orientation/consciousness: oriented to person and confusion Resp: Effort & Inspection: normal respiratory effort and able to speak in complete sentences Neuro: General: oriented to person and confusion Extrem: Other: left lower extremity is shortened and externally rotated. Alerts to pain with any motion. EMMA wrap covering ulcers on the lowere extremity. Actively dorsi/plantar flexing. Psych: Appearance: grossly normal Attitude: cooperative Procedures Date of Service Date of Service: 02/09/25 Progress Note: A&P Assessment and plan (1) Closed subtrochanteric fracture: Status: Acute Plan Remain NPO Spoke with Dr. Cifuentes who reports patient is cleared for surgery after echo was obtained yesterday Plan for OR later this morning Pain management Time Spent With Patient Time: Total time managing care of this patient today ____ minutes. Quality Stroke Does the patient have a stroke diagnosis?: No VTE Prior VTE?: No VTE Risk Level:: Medical - moderate - high VTE Device Contraindication: N/A - Device Ordered VTE Drug Contraindication: Treatment Not Indicated
--- NOTE | 2025-02-09 09:29 | ECG_ITS ---
Test Reason : Chest Pain Blood Pressure : */* mmHG Vent. Rate : 91 BPM Atrial Rate : 91 BPM P-R Int : 154 ms QRS Dur : 94 ms QT Int : 368 ms P-R-T Axes : 49 -25 55 degrees QTcB Int : 452 ms Normal sinus rhythm Moderate voltage criteria for LVH, may be normal variant ( R in aVL , [place] product ) Borderline ECG When compared with ECG of 07-Feb-2025 16:38, No significant change was found Referred By: Marc Thorne Electronically Signed By: SELINA GREENBERG MD
--- NOTE | 2025-02-09 10:07 | PC.NURSE ---
Family reporting patient c/o chest pain. Obtained Vitals, applied o2, EKG ordered, Dr. Cifuentes notified. VSS. o2 sat 97% on room air. EKG NSR. Dr. Cifuentes notified of EKG results and ordered extra dose of morphine. Pt appears to be resting comfortably at present.
--- NOTE | 2025-02-09 10:19 | P.PNIM_ITS ---
Subjective Subjective Date of Service: 02/09/25 Interval History: F/un on L subthrocanteric fx has pain, especially with movment Physical Exam 2 Vital Signs: Vital Signs: Last Vital Signs Temp 97.5 F 02/09/25 07:54 Pulse 97 02/09/25 09:34 Resp 20 02/09/25 09:34 BP 147/65 H 02/09/25 09:34 Pulse Ox 97 02/09/25 09:34 O2 Del Method Room Air 02/09/25 09:34 BMI result Body Mass Index 28.7 Const: Other: Alert, confused, pain with movement Objective Data Active Medications Acetaminophen (Acetaminophen 325 Mg Tablet) 650 mg PO Q6H PRN PRN Reason: Pain, Mild 1-3,fever,headache Calcium Carbonate (Calcium Carbonate 750 Mg Tab.Chew) 750 mg PO Q4H PRN PRN Reason: Heartburn Cephalexin HCl (Cephalexin 500 Mg Capsule) 500 mg PO TID [facility] Last Admin: 02/09/25 08:53 Dose: Not Given Documented By: KARELY Non-Admin Reason: NPO Docusate Sodium (Docusate Sodium 100 Mg Capsule) 100 mg PO BID [facility] Last Admin: 02/09/25 08:53 Dose: Not Given Documented By: KARELY Non-Admin Reason: NPO Donepezil HCl (Donepezil Hcl 5 Mg Tablet) 5 mg PO DAILY [facility] Last Admin: 02/09/25 08:53 Dose: Not Given Documented By: KARELY Non-Admin Reason: NPO Enoxaparin Sodium (Enoxaparin Sodium 30 Mg/0.3 Ml Syringe) 30 mg SUBCUT Q24H [facility] Last Admin: 02/09/25 08:54 Dose: Not Given Documented By: KARELY Non-Admin Reason: pre op Hydroxyzine HCl (Hydroxyzine Hcl 25 Mg Tablet) 25 mg PO Q8H PRN PRN Reason: itch/anxiety/restlessness Lactated Ringer's (Lr) 1,000 mls @ 100 mls/hr IVCONT .Q10H [facility] Last Admin: 02/09/25 05:23 Dose: 100 mls/hr Documented By: GARRY Magnesium Hydroxide (Milk Of Magnesia 30 Ml Oral.Susp) 30 ml PO DAILY PRN PRN Reason: Constipation Melatonin (Melatonin 3 Mg Tablet) 6 mg PO BEDTIME PRN PRN Reason: Insomnia Last Admin: 02/08/25 19:59 Dose: 6 mg Documented By: GARRY Morphine Sulfate (Morphine Sulfate 2 Mg/Ml Cartridge) 2 mg IVPUSH Q4H PRN; Protocol PRN Reason: Pain, Severe (Pain Scale 7-10) Last Admin: 02/09/25 07:52 Dose: 2 mg Documented By: KARELY Non-Formulary Medication (Rosuvastatin) 10 mg PO BEDTIME [facility] Last Admin: 02/08/25 20:01 Dose: 10 mg Documented By: GARRY Nystatin (Nystatin Powder 15 Gm Bottle) 1 appl TOPICAL DAILY PRN; Protocol PRN Reason: Rash Omeprazole (Omeprazole 20 Mg Capsule.Dr) 20 mg PO DAILY@0630 [facility] Last Admin: 02/09/25 05:26 Dose: 20 mg Documented By: GARRY Oxycodone HCl (Oxycodone Hcl Immed Release 5 Mg Tablet) 5 mg PO Q6H PRN PRN Reason: Pain, Moderate(Pain Scale 4-6) Last Admin: 02/07/25 18:09 Dose: 5 mg Documented By: JEFERSON Quetiapine Fumarate (Quetiapine Fumarate 50 Mg Tablet) 50 mg PO BEDTIME [facility] Last Admin: 02/08/25 19:58 Dose: 50 mg Documented By: GARRY Sodium Chloride (0.9 % Sodium Chloride Flush 3 Ml Syringe) 3 ml IVFLUSH QSHIFT [facility] Last Admin: 02/09/25 07:52 Dose: Not Given Documented By: KARELY Non-Admin Reason: IV Running Topiramate (Topiramate 25 Mg Tablet) 50 mg PO DAILY [facility] Last Admin: 02/09/25 08:54 Dose: Not Given Documented By: KARELY Non-Admin Reason: NPO Trimethoprim/Sulfamethoxazole (Sulfamethox/Trimeth 800/160 Tablet) 1 tab PO BID [facility] Last Admin: 02/09/25 08:53 Dose: Not Given Documented By: KARELY Non-Admin Reason: NPO Vitamin D (Cholecalciferol (Vitamin D3) 25 Mcg Tablet) 50 mcg PO DAILY [facility] Last Admin: 02/09/25 08:53 Dose: Not Given Documented By: KARELY Non-Admin Reason: NPO Labs 02/08/25 05:32 02/08/25 05:32 Labs: Laboratory Results - last 24 hr 02/07/25 02/07/25 02/08/25 15:10 17:34 05:32 MCV 89.0 91.9 MCH 29.7 29.6 MCHC 33.3 32.2 RDW 15.6 15.8 Plt Count 195 D 207 MPV 9.7 10.2 Immature Gran % (Auto) 1.1 H 0.8 H Neut % (Auto) 78.2 H 62.5 Lymph % (Auto) 10.7 L 21.6 [place] % (Auto) 9.4 12.6 H Eos % (Auto) 0.0 1.5 Baso % (Auto) 0.6 1.0 Lymph # (Auto) 0.9 L 1.1 L [place] # (Auto) 0.8 0.7 Eos # (Auto) 0.0 0.1 Baso # (Auto) 0.1 0.1 Abs Immat Gran (auto) 0.09 H 0.04 H Absolute Neuts (auto) 6.4 3.3 Absolute Nucleated RBC 0.000 0.000 Nucleated RBC % (auto) 0.0 0.0 Anion Gap 9 L 11 L Estim Creat Clear Calc 23.6 24.2 Estimated GFR 30 30 Random Glucose 151 H 114 Calcium 9.0 D 8.7 Iron 57 TIBC 178 L % Saturation 32 Unsat Iron Binding 121 Ferritin 109 Total Bilirubin 0.7 AST 31 ALT 8 Alkaline Phosphatase 161 H Total Protein 5.9 L Albumin 2.9 L Vitamin B12 588 Folate 5.7 Blood Type A Positive Antibody Screen NEGATIVE Assessment and Plan (1) Closed subtrochanteric fracture: Status: Acute (2) Venous stasis ulcers: Status: Acute Plan This is an 89-year-old female with a history of dementia, venous insufficiency with chronic venous ulcer, who was brought to the emergency department after fall at home found to have left femur fracture Left femoral shaft fracture Management as per Orthopedic team Pain control For surgery today plan to obtain echo to assess severity of as no echo in our system hold ASA at above average risk for postoperative complications and high risk for postoperative delirium morphine for pain chronic Venous stasis ulcer wound care continue antibiotics started outpatient, planned for 7 days. end date 02/11 acute on chronic normocytic anemia family denies known bleeding. possibly due to chronic dz/ckd check b12, folate, iron profile no indication for transfusion follow cbc ckd 4 renal function at baseline follows with dr clarissa ROY trend BMP dementia continue baseline medications, seroquel and donepezil h/o headache continue topamax ?CHF on lasix, will hold for now appears euvolemic echo as above of note baclofen is on med list but no recent fill history, will hold dvt ppx - mechanical due to need for surgery code status - DNR/DNI per family surgery planned for today Quality Stroke Does the patient have a stroke diagnosis?: No VTE Prior VTE?: No VTE Risk Level:: Medical - moderate - high VTE Device Contraindication: N/A - Device Ordered VTE Drug Contraindication: Treatment Not Indicated
--- NOTE | 2025-02-09 10:50 | MHC.CM.PN ---
PER MD ROUNDS, PLAN FOR SURGERY TODAY DCP PENDING PT EVAL STR AT [facility] IS PREFERRED PER PT/FAMILY BLS TRANSPORT
--- NOTE | 2025-02-09 12:12 | MHC.SHP ---
Pre-Procedural Eval Section A - 24 Hr Update-Section A only Date of Service: 02/09/25 The patient is an INPATIENT: Yes Changes since office visit: No Cold of Flu in the past 2 weeks, No New Medical Problems, No Changes in Medication and No Patient answered all questions The patient has been examined within 24 hours of the surgical procedure. The History & Physical has been completed within 30 days and I have reviewed it.: Yes Section B - Complete if H&P > 30 days Chief Complaint: Femoral shaft fracture Allergies: Allergies Allergy/AdvReac Type Severity Reaction Status Date / Time penicillin V Allergy Intermediate Rash Verified 02/07/25 13:54 Penicillins Allergy Intermediate RASH Verified 02/07/25 13:54 clindamycin Allergy Swelling Verified 02/09/25 10:42 doxycycline Allergy Rash Verified 02/09/25 10:42 From Lipitor Allergy Intermediate ITCHING Uncoded 10/27/24 17:14 From Toprol XL Allergy Intermediate ITCHING Uncoded 10/27/24 17:14 gabapentin Allergy Unknown Unknown Uncoded 10/27/24 17:14 lipitor Allergy Unknown Unknown Uncoded 10/27/24 17:14 lyrica Allergy Unknown Unknown Uncoded 10/27/24 17:14 Plan I have reviewed the history and physical and performed a pertinent physical examination on my patient. No changes have occurred unless specified. Time Spent With Patient Time: Total time managing care of this patient today ____ minutes.
--- NOTE | 2025-02-09 12:47 | HO.ANESPROP2 ---
[facility] Active Problems Active Problems: All Active Problems Venous stasis ulcers (Acute) Closed subtrochanteric fracture (Acute) Past Medical History Medical History (Updated 02/08/25 @ 12:13 by Zoey Pfeiffer RN) History of high cholesterol Hx of chronic arthritis Seasonal allergies Peripheral edema GERD (gastroesophageal reflux disease) Aortic stenosis CKD (chronic kidney disease) Dementia Cognitive capacity: distractability Narrative: walked with assistance Family History Family history of problems with anesthesia: No Surgical History Surgical History (Updated 02/08/25 @ 12:10 by Zoey Pfeiffer RN) H/O tubal ligation H/O cataract extraction History of Problems with Anesthesia: No Social History Social History Household Members: Family Housing: Apartment Do you presently have visiting nurse or other home services: Yes Alcohol intake: never Comment: family in room Patient Tobacco Use Status: Never used Tobacco service: No Meds Allergies Allergy/AdvReac Type Severity Reaction Status Date / Time penicillin V Allergy Intermediate Rash Verified 02/07/25 13:54 Penicillins Allergy Intermediate RASH Verified 02/07/25 13:54 clindamycin Allergy Swelling Verified 02/09/25 10:42 doxycycline Allergy Rash Verified 02/09/25 10:42 From Lipitor Allergy Intermediate ITCHING Uncoded 10/27/24 17:14 From Toprol XL Allergy Intermediate ITCHING Uncoded 10/27/24 17:14 gabapentin Allergy Unknown Unknown Uncoded 10/27/24 17:14 lipitor Allergy Unknown Unknown Uncoded 10/27/24 17:14 lyrica Allergy Unknown Unknown Uncoded 10/27/24 17:14 Active Medications: Current Medications Acetaminophen (Acetaminophen 325 Mg Tablet) 650 mg PO Q6H PRN PRN Reason: Pain, Mild 1-3,fever,headache Calcium Carbonate (Calcium Carbonate 750 Mg Tab.Chew) 750 mg PO Q4H PRN PRN Reason: Heartburn Cephalexin HCl (Cephalexin 500 Mg Capsule) 500 mg PO TID [facility] Last Admin: 02/09/25 08:53 Dose: Not Given Docusate Sodium (Docusate Sodium 100 Mg Capsule) 100 mg PO BID [facility] Last Admin: 02/09/25 08:53 Dose: Not Given Donepezil HCl (Donepezil Hcl 5 Mg Tablet) 5 mg PO DAILY [facility] Last Admin: 02/09/25 08:53 Dose: Not Given Enoxaparin Sodium (Enoxaparin Sodium 30 Mg/0.3 Ml Syringe) 30 mg SUBCUT Q24H [facility] Last Admin: 02/09/25 08:54 Dose: Not Given Hydroxyzine HCl (Hydroxyzine Hcl 25 Mg Tablet) 25 mg PO Q8H PRN PRN Reason: itch/anxiety/restlessness Lactated Ringer's (Lr) 1,000 mls @ 100 mls/hr IVCONT .Q10H [facility] Last Admin: 02/09/25 05:23 Dose: 100 mls/hr Magnesium Hydroxide (Milk Of Magnesia 30 Ml Oral.Susp) 30 ml PO DAILY PRN PRN Reason: Constipation Melatonin (Melatonin 3 Mg Tablet) 6 mg PO BEDTIME PRN PRN Reason: Insomnia Last Admin: 02/08/25 19:59 Dose: 6 mg Morphine Sulfate (Morphine Sulfate 2 Mg/Ml Cartridge) 2 mg IVPUSH Q4H PRN; Protocol PRN Reason: Pain, Severe (Pain Scale 7-10) Last Admin: 02/09/25 07:52 Dose: 2 mg Non-Formulary Medication (Rosuvastatin) 10 mg PO BEDTIME [facility] Last Admin: 02/08/25 20:01 Dose: 10 mg Nystatin (Nystatin Powder 15 Gm Bottle) 1 appl TOPICAL DAILY PRN; Protocol PRN Reason: Rash Omeprazole (Omeprazole 20 Mg Capsule.Dr) 20 mg PO DAILY@0630 [facility] Last Admin: 02/09/25 05:26 Dose: 20 mg Oxycodone HCl (Oxycodone Hcl Immed Release 5 Mg Tablet) 5 mg PO Q6H PRN PRN Reason: Pain, Moderate(Pain Scale 4-6) Last Admin: 02/07/25 18:09 Dose: 5 mg Quetiapine Fumarate (Quetiapine Fumarate 50 Mg Tablet) 50 mg PO BEDTIME [facility] Last Admin: 02/08/25 19:58 Dose: 50 mg Sodium Chloride (0.9 % Sodium Chloride Flush 3 Ml Syringe) 3 ml IVFLUSH QSHIFT [facility] Last Admin: 02/09/25 07:52 Dose: Not Given Topiramate (Topiramate 25 Mg Tablet) 50 mg PO DAILY [facility] Last Admin: 02/09/25 08:54 Dose: Not Given Trimethoprim/Sulfamethoxazole (Sulfamethox/Trimeth 800/160 Tablet) 1 tab PO BID [facility] Last Admin: 02/09/25 08:53 Dose: Not Given Vitamin D (Cholecalciferol (Vitamin D3) 25 Mcg Tablet) 50 mcg PO DAILY [facility] Last Admin: 02/09/25 08:53 Dose: Not Given Home Medications ?Medication ?Instructions ?Recorded ?Confirmed ?Last Taken ?Type acetaminophen 650 mg 650 mg PO Q8H PRN Fever Or Pain 02/07/25 02/07/25 Unknown History tablet,extended release (8 Hour Pain Reliever) aspirin 81 mg tablet,delayed 81 mg PO DAILY 02/07/25 02/07/25 02/06/25 History release baclofen 10 mg tablet 5 mg PO DAILY 02/07/25 02/07/25 Unknown History cephalexin 500 mg capsule 500 mg PO TID 02/07/25 02/07/25 02/06/25 History cetirizine 10 mg tablet 5 mg PO DAILY 02/07/25 02/07/25 02/06/25 History cholecalciferol (vitamin D3) 50 50 mcg PO DAILY 02/07/25 02/07/25 02/06/25 History mcg (2,000 unit) capsule diclofenac sodium 1 % topical gel 1 ea topical QID PRN Pain 02/07/25 02/07/25 02/06/25 History docusate sodium 100 mg capsule 100 mg PO BID PRN Constipation 02/07/25 02/07/25 02/06/25 History donepezil 5 mg tablet 5 mg PO DAILY 02/07/25 02/07/25 02/06/25 History furosemide 20 mg tablet 20 mg PO BID 02/07/25 02/07/25 02/06/25 History hydroxyzine HCl 25 mg tablet 25 mg PO Q6H PRN itch 02/07/25 02/07/25 Unknown History melatonin 5 mg tablet 5 - 10 mg PO BEDTIME PRN Sleep 02/07/25 02/07/25 Unknown History nitroglycerin 0.4 mg sublingual 4 mg sublingual Q5M PRN Chest Pain 02/07/25 02/07/25 Unknown History tablet nystatin 100,000 unit/gram topical 1 appl topical DAILY PRN Rash 02/07/25 02/07/25 Unknown History powder (Nystop) omeprazole 20 mg capsule,delayed 20 mg PO DAILY@0630 02/07/25 02/07/25 02/06/25 History release oxycodone 5 mg tablet 5 mg PO QID PRN Pain 02/07/25 02/07/25 02/07/25 History polyethylene glycol 3350 17 17 g PO DAILY PRN Constipation 02/07/25 02/07/25 Unknown History gram/dose oral powder (Miralax) quetiapine 50 mg tablet 50 mg PO BEDTIME 02/07/25 02/07/25 02/06/25 History rosuvastatin 10 mg tablet 10 mg PO BEDTIME 02/07/25 02/07/25 02/06/25 History sulfamethoxazole 800 1 tab PO BID 02/07/25 02/07/25 02/06/25 History mg-trimethoprim 160 mg tablet topiramate 50 mg tablet 50 mg PO DAILY 02/07/25 02/07/25 02/06/25 History Exam Exam Date and Time: 02/09/25 Height,Weight and Vital Signs: Height 5 ft 4 in Weight 75.9 kg Last Vital Signs Temp 97.7 F 02/09/25 10:45 Pulse 96 02/09/25 10:45 Resp 16 02/09/25 10:45 BP 151/51 H 02/09/25 10:45 Pulse Ox 96 02/09/25 10:45 O2 Del Method Room Air 02/09/25 10:45 Pertinent Lab Results Pertinent Lab Results: Laboratory Tests 02/07/25 02/07/25 02/08/25 15:10 17:34 05:32 WBC 8.2 5.2 RBC 2.90 L 2.84 L Hgb 8.6 L 8.4 L Hct 25.8 L 26.1 L MCV 89.0 91.9 MCH 29.7 29.6 MCHC 33.3 32.2 RDW 15.6 15.8 Plt Count 195 D 207 MPV 9.7 10.2 Immature Gran % (Auto) 1.1 H 0.8 H Neut % (Auto) 78.2 H 62.5 Lymph % (Auto) 10.7 L 21.6 [place] % (Auto) 9.4 12.6 H Eos % (Auto) 0.0 1.5 Baso % (Auto) 0.6 1.0 Lymph # (Auto) 0.9 L 1.1 L [place] # (Auto) 0.8 0.7 Eos # (Auto) 0.0 0.1 Baso # (Auto) 0.1 0.1 Abs Immat Gran (auto) 0.09 H 0.04 H Absolute Neuts (auto) 6.4 3.3 Absolute Nucleated RBC 0.000 0.000 Nucleated RBC % (auto) 0.0 0.0 Sodium 142 140 Potassium 4.4 4.1 Chloride 115 H 113 H Carbon Dioxide 22 20 L Anion Gap 9 L 11 L BUN 22 H 23 H Creatinine 1.64 H 1.60 H Estim Creat Clear Calc 23.6 24.2 Estimated GFR 30 30 Random Glucose 151 H 114 Calcium 9.0 D 8.7 Iron 57 TIBC 178 L % Saturation 32 Unsat Iron Binding 121 Ferritin 109 Total Bilirubin 0.7 AST 31 ALT 8 Alkaline Phosphatase 161 H Total Protein 5.9 L Albumin 2.9 L Vitamin B12 588 Folate 5.7 Blood Type A Positive Antibody Screen NEGATIVE Airway Mallampati Class: II TM Dist: >3cm Neck ROM: Full Denture: Upper and Lower Heart: systolic murmur c/w as Lungs: ctab vesicular Assessment and Plan Assessment Anesthesia Assessment: Anesthesia Plan Discussed (anahi CARBAJAL) Final Anesthetic Review Family History of Problems with Anesthesia: No History of Problems with Anesthesia: No NPO: Yes ASA Class: IV Final Preanesthetic Review: No Changes in Pt Med Stat, Meds/Allgs Chart Reviewed, Consent Obtained/Reviewed and Anes Risks/Benef Reviewed Patient Risk: Intermediate Procedure Risk: Intermediate Anesthetic Plan Anesthetic Plan: GA Disposition: Standard PACU
--- NOTE | 2025-02-09 14:27 | P.CONAN_ITS ---
[facility] Active Problems Active Problems: All Active Problems (Updated 02/08/25 @ 12:13 by Zoey Pfeiffer RN) Venous stasis ulcers (Acute) Closed subtrochanteric fracture (Acute) Past Medical History Medical History (Updated 02/08/25 @ 12:13 by Zoey Pfeiffer RN) History of high cholesterol Hx of chronic arthritis Seasonal allergies Peripheral edema GERD (gastroesophageal reflux disease) Aortic stenosis CKD (chronic kidney disease) Dementia Family History Family history of problems with anesthesia: No Surgical History Surgical History (Updated 02/08/25 @ 12:10 by Zoey Pfeiffer RN) H/O tubal ligation H/O cataract extraction History of Problems with Anesthesia: No Social History Social History Household Members: Family Housing: Apartment Do you presently have visiting nurse or other home services: Yes Alcohol intake: never Comment: COUNTS CORRECT Patient Tobacco Use Status: Never used Tobacco service: No Meds Allergies Allergy/AdvReac Type Severity Reaction Status Date / Time penicillin V Allergy Intermediate Rash Verified 02/07/25 13:54 Penicillins Allergy Intermediate RASH Verified 02/07/25 13:54 clindamycin Allergy Swelling Verified 02/09/25 10:42 doxycycline Allergy Rash Verified 02/09/25 10:42 From Lipitor Allergy Intermediate ITCHING Uncoded 10/27/24 17:14 From Toprol XL Allergy Intermediate ITCHING Uncoded 10/27/24 17:14 gabapentin Allergy Unknown Unknown Uncoded 10/27/24 17:14 lipitor Allergy Unknown Unknown Uncoded 10/27/24 17:14 lyrica Allergy Unknown Unknown Uncoded 10/27/24 17:14 Active Medications: Current Medications Acetaminophen (Acetaminophen 325 Mg Tablet) 650 mg PO Q6H PRN PRN Reason: Pain, Mild 1-3,fever,headache Calcium Carbonate (Calcium Carbonate 750 Mg Tab.Chew) 750 mg PO Q4H PRN PRN Reason: Heartburn Cephalexin HCl (Cephalexin 500 Mg Capsule) 500 mg PO TID [facility] Last Admin: 02/09/25 08:53 Dose: Not Given Docusate Sodium (Docusate Sodium 100 Mg Capsule) 100 mg PO BID [facility] Last Admin: 02/09/25 08:53 Dose: Not Given Donepezil HCl (Donepezil Hcl 5 Mg Tablet) 5 mg PO DAILY [facility] Last Admin: 02/09/25 08:53 Dose: Not Given Enoxaparin Sodium (Enoxaparin Sodium 30 Mg/0.3 Ml Syringe) 30 mg SUBCUT Q24H [facility] Fentanyl (Fentanyl Citrate/Pf 100 Mcg/2 Ml Vial) 25 mcg IVPUSH Q5M PRN PRN Reason: Pain, Moderate to Severe (Pain Scale 4-10) Stop: 02/09/25 19:23 Hydroxyzine HCl (Hydroxyzine Hcl 25 Mg Tablet) 25 mg PO Q8H PRN PRN Reason: itch/anxiety/restlessness Lactated Ringer's (Lr) 1,000 mls @ 100 mls/hr IVCONT .Q10H [facility] Last Infusion: 02/09/25 10:30 Dose: 0 mls/hr Lactated Ringer's (Lr) 500 mls @ 20 mls/hr IVCONT .Q24H [facility] Magnesium Hydroxide (Milk Of Magnesia 30 Ml Oral.Susp) 30 ml PO DAILY PRN PRN Reason: Constipation Melatonin (Melatonin 3 Mg Tablet) 6 mg PO BEDTIME PRN PRN Reason: Insomnia Last Admin: 02/08/25 19:59 Dose: 6 mg Morphine Sulfate (Morphine Sulfate 2 Mg/Ml Cartridge) 2 mg IVPUSH Q4H PRN; Protocol PRN Reason: Pain, Severe (Pain Scale 7-10) Last Admin: 02/09/25 07:52 Dose: 2 mg Naloxone HCl (Naloxone Hcl 0.4 Mg/Ml Vial) 0.04 mg IVPUSH Q5M PRN PRN Reason: Excessive sedation or RR < 8 Non-Formulary Medication (Rosuvastatin) 10 mg PO BEDTIME [facility] Last Admin: 02/08/25 20:01 Dose: 10 mg Nystatin (Nystatin Powder 15 Gm Bottle) 1 appl TOPICAL DAILY PRN; Protocol PRN Reason: Rash Omeprazole (Omeprazole 20 Mg Capsule.Dr) 20 mg PO DAILY@0630 [facility] Last Admin: 02/09/25 05:26 Dose: 20 mg Oxycodone HCl (Oxycodone Hcl Immed Release 5 Mg Tablet) 5 mg PO Q6H PRN PRN Reason: Pain, Moderate(Pain Scale 4-6) Last Admin: 02/07/25 18:09 Dose: 5 mg Quetiapine Fumarate (Quetiapine Fumarate 50 Mg Tablet) 50 mg PO BEDTIME [facility] Last Admin: 02/08/25 19:58 Dose: 50 mg Sodium Chloride (0.9 % Sodium Chloride Flush 3 Ml Syringe) 3 ml IVFLUSH QSHIFT [facility] Last Admin: 02/09/25 07:52 Dose: Not Given Topiramate (Topiramate 25 Mg Tablet) 50 mg PO DAILY [facility] Last Admin: 02/09/25 08:54 Dose: Not Given Trimethoprim/Sulfamethoxazole (Sulfamethox/Trimeth 800/160 Tablet) 1 tab PO BID [facility] Last Admin: 02/09/25 08:53 Dose: Not Given Vitamin D (Cholecalciferol (Vitamin D3) 25 Mcg Tablet) 50 mcg PO DAILY [facility] Last Admin: 02/09/25 08:53 Dose: Not Given Home Medications ?Medication ?Instructions ?Recorded ?Confirmed ?Last Taken ?Type acetaminophen 650 mg 650 mg PO Q8H PRN Fever Or P ain 02/07/25 02/07/25 Unknown History tablet,extended release (8 Hour Pain Reliever) aspirin 81 mg tablet,delayed 81 mg PO DAILY 02/07/25 1 02/06/25 History release baclofen 10 mg tablet 5 mg PO DAILY 02/07/2502/07 Unknown History cephalexin 500 mg capsule 500 mg PO TID 02/07/2502/0702/06/25 History cetirizine 10 mg tablet 5 mg PO DAILY 02/07/2502/0702/06/25 History cholecalciferol (vitamin D3) 50 50 mcg PO DAILY 02/07/25 02/06/25 History mcg (2,000 unit) capsule diclofenac sodium 1 % topical gel 1 ea topical QID PRN Pain 02/07/25 02/07/25 02/06/25 History docusate sodium 100 mg capsule 100 mg PO BID PRN Const ipation 02/07/25 02/07/25 02/06/25 History donepezil 5 mg tablet 5 mg PO DAILY 02/07/2502/0702/06/25 History furosemide 20 mg tablet 20 mg PO BID 02/07/2502/06/25 History hydroxyzine HCl 25 mg tablet 25 mg PO Q6H PRN itch 12/2502/07/25 Unknown History melatonin 5 mg tablet 5 - 10 mg PO BEDTIME PRN Sle ep 02/07/25 02/07/25 Unknown History nitroglycerin 0.4 mg sublingual 4 mg sublingual Q5M SD N Chest Pain 02/07/25 02/07/25 Unknown History tablet nystatin 100,000 unit/gram topical 1 appl topical RC Y PRN Rash 02/07/25 02/07/25 Unknown History powder (Nystop) omeprazole 20 mg capsule,delayed 20 mg PO DAILY@0630 1 02/07/25 02/06/25 History release oxycodone 5 mg tablet 5 mg PO QID PRN Pain 5 02/07/25 02/07/25 History polyethylene glycol 3350 17 17 g PO DAILY PRN Constipa tion 02/07/25 02/07/25 Unknown History gram/dose oral powder (Miralax) quetiapine 50 mg tablet 50 mg PO BEDTIME 02/07/2502/06/25 History rosuvastatin 10 mg tablet 10 mg PO BEDTIME 02/07/2502/06/25 History sulfamethoxazole 800 1 tab PO BID 02/07/2502/06/25 History mg-trimethoprim 160 mg tablet topiramate 50 mg tablet 50 mg PO DAILY 02/07/2512/2502/06/25 History Exam Height,Weight and Vital Signs: Height 5 ft 4 in Weight 75.9 kg Last Vital Signs Temp 97.7 F 02/09/25 10:45 Pulse 96 02/09/25 10:45 Resp 16 02/09/25 10:45 BP 151/51 H 02/09/25 10:45 Pulse Ox 96 02/09/25 10:45 O2 Del Method Room Air 02/09/25 10:45 Pertinent Lab Results Pertinent Lab Results: Laboratory Tests 02/07/25 02/07/25 02/08/25 15:10 17:34 05:32 WBC 8.2 5.2 RBC 2.90 L 2.84 L Hgb 8.6 L 8.4 L Hct 25.8 L 26.1 L MCV 89.0 91.9 MCH 29.7 29.6 MCHC 33.3 32.2 RDW 15.6 15.8 Plt Count 195 D 207 MPV 9.7 10.2 Immature Gran % (Auto) 1.1 H 0.8 H Neut % (Auto) 78.2 H 62.5 Lymph % (Auto) 10.7 L 21.6 [place] % (Auto) 9.4 12.6 H Eos % (Auto) 0.0 1.5 Baso % (Auto) 0.6 1.0 Lymph # (Auto) 0.9 L 1.1 L [place] # (Auto) 0.8 0.7 Eos # (Auto) 0.0 0.1 Baso # (Auto) 0.1 0.1 Abs Immat Gran (auto) 0.09 H 0.04 H Absolute Neuts (auto) 6.4 3.3 Absolute Nucleated RBC 0.000 0.000 Nucleated RBC % (auto) 0.0 0.0 Sodium 142 140 Potassium 4.4 4.1 Chloride 115 H 113 H Carbon Dioxide 22 20 L Anion Gap 9 L 11 L BUN 22 H 23 H Creatinine 1.64 H 1.60 H Estim Creat Clear Calc 23.6 24.2 Estimated GFR 30 30 Random Glucose 151 H 114 Calcium 9.0 D 8.7 Iron 57 TIBC 178 L % Saturation 32 Unsat Iron Binding 121 Ferritin 109 Total Bilirubin 0.7 AST 31 ALT 8 Alkaline Phosphatase 161 H Total Protein 5.9 L Albumin 2.9 L Vitamin B12 588 Folate 5.7 Blood Type A Positive Antibody Screen NEGATIVE Assessment and Plan Final Anesthetic Review Family History of Problems with Anesthesia: No History of Problems with Anesthesia: No NPO: Yes ASA Class: III and Emergency Final Preanesthetic Review: No Changes in Pt Med Stat, Meds/Allgs Chart Reviewed, Consent Obtained/Reviewed and Anes Risks/Benef Reviewed Patient Risk: Intermediate Procedure Risk: Intermediate Anesthetic Plan Anesthetic Plan: GA Disposition: Standard PACU
--- NOTE | 2025-02-09 14:37 | P.BOP_ITS ---
Brief Operative Note Date of Service: 02/09/25 Pre-op diagnosis: left hip subtrochanteric femur fracture Post-op diagnosis: same Procedure: Left hip IMN Implants: Akbar [id number] 11x [id number] with 90mm hip screw and 2 distal interlocking screws Surgeon: Craig Medley MD Anesthesia: GLMA and local Was an Radiation Oncology Nurse used for this Procedure?: No Estimated blood loss (mL): 100 IV fluids (mL): 500 Pathology: none sent Condition: stable Disposition: PACU
--- NOTE | 2025-02-09 14:42 | W.PM.OPN ---
Operative Note Operative Note Date of Service: 02/09/25 Narrative: Date of Service: 02/09/25 Pre-op diagnosis: left hip subtrochanteric femur fracture Post-op diagnosis: same Procedure: Left hip IMN Implants: Akbar [id number] 11x [id number] with 90mm hip screw and 2 distal interlocking screws Surgeon: Craig Medley MD Anesthesia: GLMA and local Was an [place] Manager used for this Procedure?: No Estimated blood loss (mL): 100 IV fluids (mL): 500 Pathology: none sent Condition: stable Disposition: PACU Procedure in detail: Patient was brought to the operating room and prepped and draped in standard sterile fashion. Time-out was called to identify proper site procedure proper surgeon and IV antibiotics per weight were administered. She was positioned on the fracture table and a traction and slight internal rotation were performed and biplanar fluoroscopy confirmed initial fracture reduction. This was a subtrochanteric femur fracture proximal fragment was flexed. Traction sterile crutch to the distal fragment. I then made a stab incision proximal to the greater trochanter in using a guidewire made a entry point just lateral to the tip of the greater trochanter and placed a guidewire into the femoral metadiaphysis. I then over-reamed with 15 mm Reamer. I then placed the reduction spoon in the proximal fragment and applied a posterior force to the distal aspect and inserted my guidewire into the distal femoral fragment. I placed my ball-tip guidewire down distally in the femur and measured my length. I selected a 340, 125 deg 11 mm nail after reaming to a 12.5/. I then inserted the nail. I then turned my attention to the hip screw where I used a guidewire and a tip apex distance of less than 1.5 measured a 90mm hip screw. I then pre drilled and placed a hip screw using biplanar fluoroscopy. Once I was satisfied with the position of the hip screw I turned my attention to the distal aspect of the nail. Using perfect torres martinez technique I placed 2 static distal interlocking screws using standard AO technique. I then placed my set screw proximally and removed all extraneous instrumentation. Final biplanar radiographs were taken. I was satisfied with the position of the hardware and the fracture reduction. I copiously irrigated closed with absorbable sutures and linsey and injected 30 mL of into the area of the incisions. Traction was let down patient was placed in sterile dressing awakened from anesthesia brought to recovery room stable condition there were no known complications.
[2025-02-09] MEDS: 0.9 % Sodium Chloride Flush 3 ML SYRINGE IVFLUSH (16:04)
[2025-02-09] MEDS: Sulfamethox/Trimeth 800/160 TABLET 1 TAB PO (20:43)
[2025-02-10] VITALS (10 sets, daily range): BP systolic 125–149; BP diastolic 52–68; PULSE 81–99; RESP 14–18; TEMP 36.1–36.6; O2SAT 92–96
[2025-02-10] MEDS: Lactated Ringers 1,000 ML 100 ML IVCONT (05:27)
[2025-02-10] MEDS: Sulfamethox/Trimeth 800/160 TABLET 1 TAB PO ×2 (09:01→21:17)
--- NOTE | 2025-02-10 09:12 | HO.PM.IMPN ---
Subjective Subjective Date of Service: 02/10/25 Interval History: F/un on L subthrocanteric fx surgery done yesterday, has no pain Physical Exam Vital Signs: Vital Signs: Last Vital Signs Temp 97.2 F 02/10/25 07:27 Pulse 88 02/10/25 07:27 Resp 18 02/10/25 07:27 BP 130/59 L 02/10/25 07:27 Pulse Ox 92 02/10/25 07:27 O2 Del Method Room Air 02/10/25 07:27 O2 Flow Rate 6 02/09/25 14:40 BMI result Body Mass Index 28.7 Const: Other: Alert, confused, pain with movement Objective Data Active Medications Acetaminophen (Acetaminophen 325 Mg Tablet) 650 mg PO Q6H PRN PRN Reason: Pain, Mild 1-3,fever,headache Last Admin: 02/10/25 09:02 Dose: 650 mg Documented By: ESTELLE Calcium Carbonate (Calcium Carbonate 750 Mg Tab.Chew) 750 mg PO Q4H PRN PRN Reason: Heartburn Cephalexin HCl (Cephalexin 500 Mg Capsule) 500 mg PO TID [facility] Last Admin: 02/10/25 09:01 Dose: 500 mg Documented By: ESTELLE Docusate Sodium (Docusate Sodium 100 Mg Capsule) 100 mg PO BID [facility] Last Admin: 02/10/25 09:02 Dose: 100 mg Documented By: ESTELLE Donepezil HCl (Donepezil Hcl 5 Mg Tablet) 5 mg PO DAILY [facility] Last Admin: 02/10/25 09:01 Dose: 5 mg Documented By: ESTELLE Hydroxyzine HCl (Hydroxyzine Hcl 25 Mg Tablet) 25 mg PO Q8H PRN PRN Reason: itch/anxiety/restlessness Last Admin: 02/09/25 16:04 Dose: 25 mg Documented By: KARELY Magnesium Hydroxide (Milk Of Magnesia 30 Ml Oral.Susp) 30 ml PO DAILY PRN PRN Reason: Constipation Melatonin (Melatonin 3 Mg Tablet) 6 mg PO BEDTIME PRN PRN Reason: Insomnia Last Admin: 02/08/25 19:59 Dose: 6 mg Documented By: GARRY Morphine Sulfate (Morphine Sulfate 2 Mg/Ml Cartridge) 2 mg IVPUSH Q4H PRN; Protocol PRN Reason: Pain, Severe (Pain Scale 7-10) Last Admin: 02/10/25 03:50 Dose: 2 mg Documented By: NATASHA Naloxone HCl (Naloxone Hcl 0.4 Mg/Ml Vial) 0.04 mg IVPUSH Q5M PRN PRN Reason: Excessive sedation or RR < 8 Non-Formulary Medication (Rosuvastatin) 10 mg PO BEDTIME [facility] Last Admin: 02/09/25 21:26 Dose: Not Given Documented By: NATASHA Non-Admin Reason: See Note Nystatin (Nystatin Powder 15 Gm Bottle) 1 appl TOPICAL DAILY PRN; Protocol PRN Reason: Rash Omeprazole (Omeprazole 20 Mg Capsule.Dr) 20 mg PO DAILY@0630 [facility] Last Admin: 02/10/25 05:30 Dose: Not Given Documented By: NATASHA Non-Admin Reason: Patient Refused Oxycodone HCl (Oxycodone Hcl Immed Release 5 Mg Tablet) 5 mg PO Q6H PRN PRN Reason: Pain, Moderate(Pain Scale 4-6) Last Admin: 02/07/25 18:09 Dose: 5 mg Documented By: JEFERSON Quetiapine Fumarate (Quetiapine Fumarate 50 Mg Tablet) 50 mg PO BEDTIME [facility] Last Admin: 02/09/25 20:43 Dose: 50 mg Documented By: NATASHA Sodium Chloride (0.9 % Sodium Chloride Flush 3 Ml Syringe) 3 ml IVFLUSH QSHIFT [facility] Last Admin: 02/10/25 07:46 Dose: Not Given Documented By: ESTELLE Non-Admin Reason: IV Running Topiramate (Topiramate 25 Mg Tablet) 50 mg PO DAILY [facility] Last Admin: 02/10/25 09:01 Dose: 50 mg Documented By: ESTELLE Trimethoprim/Sulfamethoxazole (Sulfamethox/Trimeth 800/160 Tablet) 1 tab PO BID [facility] Last Admin: 02/10/25 09:01 Dose: 1 tab Documented By: ESTELLE Vitamin D (Cholecalciferol (Vitamin D3) 25 Mcg Tablet) 50 mcg PO DAILY [facility] Last Admin: 02/10/25 09:01 Dose: 50 mcg Documented By: ESTELLE Labs 02/08/25 05:32 02/08/25 05:32 Labs: Laboratory Results - last 24 hr 02/07/25 02/07/25 02/08/25 15:10 17:34 05:32 MCV 89.0 91.9 MCH 29.7 29.6 MCHC 33.3 32.2 RDW 15.6 15.8 Plt Count 195 D 207 MPV 9.7 10.2 Immature Gran % (Auto) 1.1 H 0.8 H Neut % (Auto) 78.2 H 62.5 Lymph % (Auto) 10.7 L 21.6 [place] % (Auto) 9.4 12.6 H Eos % (Auto) 0.0 1.5 Baso % (Auto) 0.6 1.0 Lymph # (Auto) 0.9 L 1.1 L [place] # (Auto) 0.8 0.7 Eos # (Auto) 0.0 0.1 Baso # (Auto) 0.1 0.1 Abs Immat Gran (auto) 0.09 H 0.04 H Absolute Neuts (auto) 6.4 3.3 Absolute Nucleated RBC 0.000 0.000 Nucleated RBC % (auto) 0.0 0.0 Anion Gap 9 L 11 L Estim Creat Clear Calc 23.6 24.2 Estimated GFR 30 30 Random Glucose 151 H 114 Calcium 9.0 D 8.7 Iron 57 TIBC 178 L % Saturation 32 Unsat Iron Binding 121 Ferritin 109 Total Bilirubin 0.7 AST 31 ALT 8 Alkaline Phosphatase 161 H Total Protein 5.9 L Albumin 2.9 L Vitamin B12 588 Folate 5.7 Blood Type A Positive Antibody Screen NEGATIVE Assessment and Plan (1) Closed subtrochanteric fracture: Status: Acute (2) Venous stasis ulcers: Status: Acute Plan This is an 89-year-old female with a history of dementia, venous insufficiency with chronic venous ulcer, who was brought to the emergency department after fall at home found to have left femur fracture Left femoral shaft fracture Management as per Orthopedic team Pain control s/p surgical repair yesterday plan to obtain echo to assess severity of as no echo in our system Orhto to decide on DVT prophylaxis at above average risk for postoperative complications and high risk for postoperative delirium morphine for pain chronic Venous stasis ulcer wound care continue antibiotics started outpatient, planned for 7 days. end date 02/11 acute on chronic normocytic anemia family denies known bleeding. possibly due to chronic dz/ckd check b12, folate, iron profile no indication for transfusion follow cbc ckd 4 renal function at baseline follows with dr clarissa ROY trend BMP dementia continue baseline medications, seroquel and donepezil h/o headache continue topamax ?CHF on lasix, will hold for now appears euvolemic echo as above of note baclofen is on med list but no recent fill history, will hold dvt ppx - mechanical due to need for surgery code status - DNR/DNI per family surgery planned for today Quality Stroke Does the patient have a stroke diagnosis?: No VTE Prior VTE?: No VTE Risk Level:: Medical - moderate - high VTE Device Contraindication: N/A - Device Ordered VTE Drug Contraindication: Treatment Not Indicated
--- NOTE | 2025-02-10 09:16 | P.PNOP_ITS ---
Subjective Subjective Date of Service: 02/10/25 Interval history: POD1 s/p left hip IM Nail Patient is resting in bed comfortably Confused at baseline No overnight events Pain appears to be managed No additional complaints Physical Exam Vital Signs: Vital Signs: Last Vital Signs Temp 97.2 F 02/10/25 07:27 Pulse 88 02/10/25 07:27 Resp 18 02/10/25 07:27 BP 130/59 L 02/10/25 07:27 Pulse Ox 92 02/10/25 07:27 O2 Del Method Room Air 02/10/25 07:27 O2 Flow Rate 6 02/09/25 14:40 BMI result Body Mass Index 28.7 Const: General: cooperative, healthy appearing and no acute distress Resp: Effort & Inspection: normal respiratory effort and able to speak in complete sentences Extrem: Other: Left hip dressings are intact with mild saturation. Patient able to dorsi/planta r flex with assistance (unable to follow direction due to mental baseline). Calf is supple and nontender. Pedal pulse intact. Psych: Appearance: grossly normal Mental Status: mental status grossly normal Attitude: cooperative Procedures Date of Service Date of Service: 02/10/25 Progress Note: A&P Assessment and plan (1) Closed subtrochanteric fracture: Status: Acute Plan Continue pain mgmnt Begin Lovenox for dvt ppx begin PT/OT for left hip IM Nail - WBAT Dressing changes as needed - Orders placed Dispo planning-Pending PT/OT eval, pain mgmnt patient is able to d/c once medically cleared Time Spent With Patient Time: Total time managing care of this patient today ____ minutes. Quality Stroke Does the patient have a stroke diagnosis?: No VTE Prior VTE?: No VTE Risk Level:: Medical - moderate - high VTE Device Contraindication: N/A - Device Ordered VTE Drug Contraindication: Treatment Not Indicated
[2025-02-10 16:57] LABS: Mean Corpuscular HGB Conc 31.3 g/dl (31.0-35.0); Mean Corpuscular Hemoglobin 29.3 pg (27.0-33.0); Mean Corpuscular Volume 93.5 fL (80.0-98.0); NRBC Abs Auto 0.030 X10*3/uL (0.0-0.012); NRBC Pct Auto 0.2 /100WBC (0.0-0.2); Platelet Count 219 X10*3/uL (160-400); Red Blood Count 2.15 X10*6/uL (4.20-5.50); White Blood Count 14.6 X10*3/uL (4.8-10.8)
[2025-02-10 17:05] LABS: Hematocrit 20.1 % (37.0-47.0); Hemoglobin 6.3 g/dl (12.0-16.0)
[2025-02-10 17:17] LABS: Anion Gap 11 (12-20); Blood Urea Nitrogen 35 mg/dL (9-16); Calcium 8.1 mg/dL (8.4-10.2); Carbon Dioxide 21 mmol/L (22-29); Chloride 113 mmol/L (96-108); Creatinine Clr Calc Pharmacy 18.7; Estimated Glomerular Filt Rate 23; Potassium 5.2 mmol/L (3.3-5.1); Sodium 140 mmol/L (135-145)
--- NOTE | 2025-02-10 20:16 | PM.EVENT ---
Event Note Date of Service: 02/10/25 Event Note: Patient's hemoglobin dropped from 8.4 on 02/08 to 6.3 today. She is s/p left hip IM nail yesterday. minimal blood loss during surgery. pt's family denies any obvious bleeding sources. B12 and folate normal. TIBC low, likely due to CKD. OBS x1 ordered. 2U PRBC ordered and consent reviewed with HCP and other family members bedside. ortho is aware of anemia and does not feel this is surgical, likely chronic. will follow CBC in AM post transfusion. Time Spent With Patient Time: Total time managing care of this patient today ____ minutes.
[2025-02-10] MEDS: ROSUVASTATIN 10 MG 10 EACH PO (21:17)
[2025-02-10] MEDS: oxyCODONE HCl Immed Release 5 MG TABLET PO (22:46)
[2025-02-11] VITALS (7 sets, daily range): BP systolic 123–146; BP diastolic 50–67; PULSE 78–93; RESP 16–18; TEMP 36.1–36.3; O2SAT 94–98
[2025-02-11] MEDS: Sulfamethox/Trimeth 800/160 TABLET 1 TAB PO (08:49)
[2025-02-11 08:53] LABS: Hematocrit 23.1 % (37.0-47.0); Hemoglobin 7.3 g/dl (12.0-16.0); Mean Corpuscular HGB Conc 31.6 g/dl (31.0-35.0); Mean Corpuscular Hemoglobin 29.4 pg (27.0-33.0); Mean Corpuscular Volume 93.1 fL (80.0-98.0); NRBC Abs Auto 0.110 X10*3/uL (0.0-0.012); Platelet Count 209 X10*3/uL (160-400); Red Blood Count 2.48 X10*6/uL (4.20-5.50); White Blood Count 10.5 X10*3/uL (4.8-10.8)
[2025-02-11] MEDS: 0.9 % Sodium Chloride Flush 3 ML SYRINGE IVFLUSH (08:55)
[2025-02-11 08:57] LABS: NRBC Pct Auto 1.0 /100WBC (0.0-0.2)
[2025-02-11 09:09] LABS: Anion Gap 11 (12-20); Blood Urea Nitrogen 41 mg/dL (9-16); Calcium 8.1 mg/dL (8.4-10.2); Carbon Dioxide 22 mmol/L (22-29); Chloride 112 mmol/L (96-108); Creatinine Clr Calc Pharmacy 17.2; Estimated Glomerular Filt Rate 21; Potassium 4.9 mmol/L (3.3-5.1); Sodium 140 mmol/L (135-145)
--- NOTE | 2025-02-11 09:58 | PM.EVENT ---
Event Note Date of Service: 02/11/25 Event Note: -Spoke with medicine overnight in regards to low H&H and transfusing -H&H slightly improved this AM 7.3/23.1 - Additional units orderd by Dr. Cifuentes -Spoke with RN Carmencita Fontaine patient is doing well. Has pain when trying to turn her and was unable to follow directions with P.T. yesterday. No additional complaints or report. -Continue Lovenox for DVT ppx -Continue P.T./O.T. - WBAT s/p left hip IM Nail C-ontinue pain mgmnt -Medicine to continue monitoring H&H -Dispo planning- PT/OT, pain mgmnt, monitor H&H, discharge to rehab once medically cleared Time Spent With Patient Time: Total time managing care of this patient today ____ minutes.
--- NOTE | 2025-02-11 09:59 | HO.PM.IMPN ---
Subjective Subjective Date of Service: 02/11/25 Interval History: F/un on L subthrocanteric fx surgery done 02/09 without complications pain is reasonably controlled, transfused rbc yesterday Physical Exam Vital Signs: Vital Signs: Last Vital Signs Temp 97.0 F 02/11/25 07:59 Pulse 93 02/11/25 07:59 Resp 16 02/11/25 04:00 BP 137/63 02/11/25 07:59 Pulse Ox 98 02/11/25 07:59 O2 Del Method Room Air 02/11/25 07:59 O2 Flow Rate 6 02/09/25 14:40 BMI result Body Mass Index 28.7 Const: Other: Alert, confused, pain with movement Objective Data Active Medications Acetaminophen (Acetaminophen 325 Mg Tablet) 650 mg PO Q6H PRN PRN Reason: Pain, Mild 1-3,fever,headache Last Admin: 02/11/25 08:49 Dose: 650 mg Documented By: ESTELLE Calcium Carbonate (Calcium Carbonate 750 Mg Tab.Chew) 750 mg PO Q4H PRN PRN Reason: Heartburn Cephalexin HCl (Cephalexin 500 Mg Capsule) 500 mg PO TID [facility] Last Admin: 02/11/25 08:49 Dose: 500 mg Documented By: ESTELLE Docusate Sodium (Docusate Sodium 100 Mg Capsule) 100 mg PO BID [facility] Last Admin: 02/11/25 08:49 Dose: 100 mg Documented By: ESTELLE Donepezil HCl (Donepezil Hcl 5 Mg Tablet) 5 mg PO DAILY [facility] Last Admin: 02/11/25 08:48 Dose: 5 mg Documented By: ESTELLE Enoxaparin Sodium (Enoxaparin Sodium 30 Mg/0.3 Ml Syringe) 30 mg SUBCUT Q24H [facility] Last Admin: 02/10/25 11:11 Dose: 30 mg Documented By: ESTELLE Hydroxyzine HCl (Hydroxyzine Hcl 25 Mg Tablet) 25 mg PO Q8H PRN PRN Reason: itch/anxiety/restlessness Last Admin: 02/11/25 08:49 Dose: 25 mg Documented By: ESTELLE Magnesium Hydroxide (Milk Of Magnesia 30 Ml Oral.Susp) 30 ml PO DAILY PRN PRN Reason: Constipation Melatonin (Melatonin 3 Mg Tablet) 6 mg PO BEDTIME PRN PRN Reason: Insomnia Last Admin: 02/10/25 23:12 Dose: 6 mg Documented By: NATASHA Morphine Sulfate (Morphine Sulfate 2 Mg/Ml Cartridge) 2 mg IVPUSH Q4H PRN; Protocol PRN Reason: Pain, Severe (Pain Scale 7-10) Last Admin: 02/10/25 03:50 Dose: 2 mg Documented By: NATASHA Naloxone HCl (Naloxone Hcl 0.4 Mg/Ml Vial) 0.04 mg IVPUSH Q5M PRN PRN Reason: Excessive sedation or RR < 8 Non-Formulary Medication (Rosuvastatin) 10 mg PO BEDTIME [facility] Last Admin: 02/10/25 21:17 Dose: 10 mg Documented By: NATASHA Nystatin (Nystatin Powder 15 Gm Bottle) 1 appl TOPICAL DAILY PRN; Protocol PRN Reason: Rash Omeprazole (Omeprazole 20 Mg Capsule.Dr) 20 mg PO DAILY@0630 [facility] Last Admin: 02/11/25 06:12 Dose: 20 mg Documented By: NATASHA Oxycodone HCl (Oxycodone Hcl Immed Release 5 Mg Tablet) 5 mg PO Q6H PRN PRN Reason: Pain, Moderate(Pain Scale 4-6) Last Admin: 02/10/25 22:46 Dose: 5 mg Documented By: NATASHA Quetiapine Fumarate (Quetiapine Fumarate 50 Mg Tablet) 50 mg PO BEDTIME [facility] Last Admin: 02/10/25 21:17 Dose: 50 mg Documented By: NATASHA Sodium Chloride (0.9 % Sodium Chloride Flush 3 Ml Syringe) [facility] Last Admin: 02/11/25 08:55 Dose: 3 ml Documented By: ESTELLE Topiramate (Topiramate 25 Mg Tablet) 50 mg PO DAILY [facility] Last Admin: 02/11/25 08:49 Dose: 50 mg Documented By: ESTELLE Trimethoprim/Sulfamethoxazole (Sulfamethox/Trimeth 800/160 Tablet) 1 tab PO BID [facility] Last Admin: 02/11/25 08:49 Dose: 1 tab Documented By: ESTELLE Vitamin D (Cholecalciferol (Vitamin D3) 25 Mcg Tablet) 50 mcg PO DAILY [facility] Last Admin: 02/11/25 08:48 Dose: 50 mcg Documented By: ESTELLE Labs 02/11/25 08:46 02/11/25 08:46 Labs: Laboratory Results - last 24 hr 02/07/25 02/10/25 02/10/25 17:34 16:51 17:58 MCV 93.5 MCH 29.3 MCHC 31.3 RDW 15.9 Plt Count 219 MPV 9.6 Absolute Nucleated RBC 0.030 H Nucleated RBC % (auto) 0.2 Hold Purple Top Anion Gap 11 L Estim Creat Clear Calc 18.7 Estimated GFR 23 Random Glucose 131 H Calcium 8.1 L D Blood Type A Positive Antibody Screen NEGATIVE Crossmatch See Detail See Detail 02/11/25 02/11/25 08:46 08:47 MCV 93.1 MCH 29.4 MCHC 31.6 RDW 15.7 Plt Count 209 MPV 9.7 Absolute Nucleated RBC 0.110 H Nucleated RBC % (auto) 1.0 H Hold Purple Top SEE NOTE Anion Gap 11 L Estim Creat Clear Calc 17.2 Estimated GFR 21 Random Glucose 120 H Calcium 8.1 L Blood Type Antibody Screen Crossmatch Assessment and Plan (1) Closed subtrochanteric fracture: Status: Acute (2) Venous stasis ulcers: Status: Acute Plan This is an 89-year-old female with a history of dementia, venous insufficiency with chronic venous ulcer, who was brought to the emergency department after fall at home found to have left femur fracture Left femoral shaft fracture Management as per Orthopedic team Pain control s/p surgical repair yesterday plan to obtain echo to assess severity of as no echo in our system Orhto to decide on DVT prophylaxis at above average risk for postoperative complications and high risk for postoperative delirium morphine for pain lovenox for dvt prophylaxis chronic Venous stasis ulcer wound care continue antibiotics started outpatient, planned for 7 days. end date 02/11 acute on chronic normocytic anemia family denies known bleeding. 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
--- NOTE | 2025-02-11 10:47 | MHC.CM.PN ---
Per MD patient medically cleared for dc to [facility] has auth. Can accept today and start PT on after long weekend. Granddaughter/HCP Dino updated and agrees w/ plan. BLS transport scheduled for 3pm. and RN aware.
[2025-02-11] MEDS: oxyCODONE HCl Immed Release 5 MG TABLET PO (12:19)
--- NOTE | 2025-02-11 12:52 | P.DS_ITS ---
DS: Providers Provider Date of Service: 02/11/25 Date of admission: 02/07/25 16:05 Date of discharge: 02/11/25 Primary care physician: Cecilia Finch DO Consults: 02/07/25 16:15 Consult to Orthopedics Routine Consulting Provider: [facility] Reason for consultation: proximal femoral shaft fracture with displacement Has provider been notified: No 02/07/25 16:26 Consult to Wound Care Routine Reason for consultation: left ankle ulcer DS: Diagnosis Discharge Diagnosis (1) Closed subtrochanteric fracture: Status: Acute (2) Venous stasis ulcers: Status: Acute DS: Summary Hospital Course Hospital Course: admission hpi Chief Complaint: fall This is an 89-year-old female with history of dementia who was brought to the emergency department after a fall. Unable to obtain any history from the patient due to underlying dementia. History was obtained from granddaughter at bedside who states she slid out of the bed onto her left side. She has not complained of this pain, dizziness. In the emergency department she was noted to have acute mildly comminuted proximal femoral shaft fracture with displacement. Patient appeared uncomfortable and did require both p.o. and IV narcotics for pain control. The remainder of the ED workup was unremarkable. Of note patient has chronic wound on the left food for which she was recently started on antibiotics. hospital course: This is an 89-year-old female with a history of dementia, venous insufficiency with chronic venous ulcer, who was brought to the emergency department after fall at home found to have left femur fracture. She underwent operative repair and noted to have acute on chronic anemia post op otherwise no complication. Pain is reasonably controlled, on Lovenox for DVT prophylaxis. Further instruction per Ortho. She has been transfused RBC for anemia. Admission Hgb was 8.6 and post operative was 6 on 02/10/25 and has been transfused 2 units, hemoglobin is now. She's been transitioned to rehab for therapy and recovery. chronic Venous stasis ulcer Treated with Keflex and Bactrim x 7 days, entind 02/11/25 acute on chronic normocytic anemia, presented with Hgb of 8.6, next day 8.4, after surgery on 02/10 6, transfused 1 unit of 02/10 and increased to 7.3 and is being transfused another unit today, final Hgb is ckd 4,stable dementia, no behavior issues continue baseline medications, seroquel and donepezil h/o headache continue topamax h/o CHF, resume home Lasix Dispo: to rehab DNR/DNI Time Attestation Discharge Coordination Time (in mins): 40 Quality: Safe Use of Opioids Does Pt have an Active Cancer Diagnosis on the Problem List?: No Quality: Stroke Does the patient have a stroke diagnosis?: No Physical Exam Vital Signs: Vital Signs: Last Vital Signs Temp 97 F 02/11/25 11:01 Pulse 78 02/11/25 11:01 Resp 16 02/11/25 11:01 BP 135/63 02/11/25 11:01 Pulse Ox 98 02/11/25 07:59 O2 Del Method Room Air 02/11/25 07:59 O2 Flow Rate 6 02/09/25 14:40 BMI result Body Mass Index 28.7 Const: Other: General: Alert, no distress, confused (baseline) Resp: CTA bilateral CVS: S1,S2,RRR GI: +BS, NT, no distention Skin: No rash, surgical site d/c/i Neuro: motor grossly intact Psych: appropriate affect DS: Data Data Completed and Pending Labs on day of discharge: Laboratory Results - last 24 hr 02/07/25 02/10/25 02/10/25 17:34 16:51 17:58 WBC 14.6 H RBC 2.15 L D Hgb 6.3 L* D Hct 20.1 L* D MCV 93.5 MCH 29.3 MCHC 31.3 RDW 15.9 Plt Count 219 MPV 9.6 Absolute Nucleated RBC 0.030 H Nucleated RBC % (auto) 0.2 Hold Purple Top Sodium 140 Potassium 5.2 H D Chloride 113 H Carbon Dioxide 21 L Anion Gap 11 L BUN 35 H Creatinine 2.07 H Estim Creat Clear Calc 18.7 Estimated GFR 23 Random Glucose 131 H Calcium 8.1 L D Blood Type A Positive Antibody Screen NEGATIVE Crossmatch See Detail See Detail 02/11/25 02/11/25 08:46 08:47 WBC 10.5 RBC 2.48 L Hgb 7.3 L Hct 23.1 L MCV 93.1 MCH 29.4 MCHC 31.6 RDW 15.7 Plt Count 209 MPV 9.7 Absolute Nucleated RBC 0.110 H Nucleated RBC % (auto) 1.0 H Hold Purple Top SEE NOTE Sodium 140 Potassium 4.9 Chloride 112 H Carbon Dioxide 22 Anion Gap 11 L BUN 41 H Creatinine 2.25 H Estim Creat Clear Calc 17.2 Estimated GFR 21 Random Glucose 120 H Calcium 8.1 L Blood Type Antibody Screen Crossmatch Discharge Plan Discharge Anticipated Discharge Date/Time: 02/11/25 12:49 Patient Disposition: Xfer SNF Discharge Diagnosis: Left femoral shrt fracture Referrals: [facility] [Other] - 1 Day Referral Note: short term rehab Alexandra Villanueva PA-C [Physician Superintendent Recreation, Orthopedics] - 02/22/25 10:30 am Cecilia Finch DO [Primary Care Provider, Internal Medicine] - 1 Week Discharge Medications: New enoxaparin 30 mg/0.3 mL Syringe 30 mg subcut Q24H 40 Days Qty: 12 0RF Continued epinephrine [EpiPen 2-Lavelle] 0.3 mg/0.3 mL auto-injector 0.3 mg IM Q4H PRN (Reason: anaphylaxis) Qty: 2 0RF donepezil 5 mg tablet 5 mg PO DAILY cetirizine 10 mg tablet 5 mg PO DAILY aspirin 81 mg tablet,delayed release (DR/EC) 81 mg PO DAILY nitroglycerin 0.4 mg tablet, sublingual 4 mg sublingual Q5M MDD 3 doses PRN (Reason: Chest Pain) omeprazole 20 mg capsule,delayed release(DR/EC) 20 mg PO DAILY@0630 nystatin [Nystop] 100,000 unit/gram powder 1 appl topical DAILY PRN (Reason: Rash) Rx Instructions: Apply to groin rosuvastatin 10 mg tablet 10 mg PO BEDTIME topiramate 50 mg tablet 50 mg PO DAILY quetiapine 50 mg tablet 50 mg PO BEDTIME melatonin 5 mg tablet 5 - 10 mg PO BEDTIME PRN (Reason: Sleep) cholecalciferol (vitamin D3) 50 mcg (2,000 unit) capsule 50 mcg PO DAILY acetaminophen [8 Hour Pain Reliever] 650 mg tablet extended release 650 mg PO Q8H PRN (Reason: Fever Or Pain) docusate sodium 100 mg capsule 100 mg PO BID PRN (Reason: Constipation) hydroxyzine HCl 25 mg tablet 25 mg PO Q6H PRN (Reason: itch) furosemide 20 mg tablet 20 mg PO BID polyethylene glycol 3350 [Miralax] 17 gram/dose Powder 17 g PO DAILY PRN (Reason: Constipation) diclofenac sodium 1 % gel 1 ea topical QID PRN (Reason: Pain) baclofen 10 mg tablet 5 mg PO DAILY oxycodone 5 mg tablet 5 mg PO QID PRN (Reason: Pain) Qty: 20 0RF Discontinued sulfamethoxazole-trimethoprim 800-160 mg tablet 1 tab PO BID cephalexin 500 mg capsule 500 mg PO TID Discharge Orders: Discharge Order (Routine); Ordered 02/11/25 Ordered By: Marc Cifuentes Diet: Advance to usual diet Activity on Discharge: As tolerated Stand Alone Forms: Patient Portal Discharge page Print Language: Peruvian Activity Restrictions/Additional Instructions: Physical Therapy for right hip IM Nail: Gait training, ROM, strengthening, ADL's -Bandage/Incision Site Care: -Ice 20mins at a time -Make sure you use a towel or cloth on your skin as a barrier -Keep Bandages clean, dry and intact -Do not get the bandage wet: -No tub bath, pools or hot tubs -Physical Therapy: -Patient is WBAT with the use of a walker -Gait training -Limit stair climbing -Hip range of motion -Strengthening: Quadriceps and hip muscles -Walking: Gait training and gradually increasing distance with walker -Ankle pumps and incentive spirometry to limit the risk of blood clot -Diet: -Resume regular diet as tolerated. -Drink plenty of fluids and eat a high-fiber foods to avoid constipation -This is a common side effect of pain medication) -Take stool softeners as prescribed -Blood Clot Prevention: -Take the prescribed blood thinner (Lovenox) as directed for 6 weeks -Perform ankle pumps and walk frequently with the walker and assistance if needed -Report calf pain, swelling, or shortness of breath immediately Care Plan Goals: recovery from Left hip fracture Health Concerns: left hip fracuture Plan of Treatment: see above Assessment: see above
[2025-02-11 13:30] LABS: Hematocrit 23.4 % (37.0-47.0); Hemoglobin 7.5 g/dl (12.0-16.0); Mean Corpuscular HGB Conc 32.1 g/dl (31.0-35.0); Mean Corpuscular Hemoglobin 29.9 pg (27.0-33.0); Mean Corpuscular Volume 93.2 fL (80.0-98.0); NRBC Abs Auto 0.100 X10*3/uL (0.0-0.012); Platelet Count 216 X10*3/uL (160-400); Red Blood Count 2.51 X10*6/uL (4.20-5.50); White Blood Count 10.5 X10*3/uL (4.8-10.8)
[2025-02-11 13:34] LABS: NRBC Pct Auto 1.0 /100WBC (0.0-0.2)
[2025-02-11 15:07] LABS: Hematocrit 27.6 % (37.0-47.0); Hemoglobin 9.0 g/dl (12.0-16.0); Mean Corpuscular HGB Conc 32.6 g/dl (31.0-35.0); Mean Corpuscular Hemoglobin 30.1 pg (27.0-33.0); Mean Corpuscular Volume 92.3 fL (80.0-98.0); NRBC Abs Auto 0.070 X10*3/uL (0.0-0.012); NRBC Pct Auto 0.7 /100WBC (0.0-0.2); Platelet Count 203 X10*3/uL (160-400); Red Blood Count 2.99 X10*6/uL (4.20-5.50); White Blood Count 10.7 X10*3/uL (4.8-10.8)
== END 2025-02-11 16:48 | disposition skilled nursing facility (03) | DRG 481 ==
LOC: HO.ED 14:22 → HO.EDOVER 16:48 → HO.S3 16:54
PROVIDERS: Orthopaedic Surgery; Admitting Provider Physician Assistant Medical; Emergency Provider Emergency Medicine; PCP Family Medicine; Visit Provider Internal Medicine
PROC: 0QS736Z Reposition Left Upper Femur with Intramedullary Internal Fixation Device, Percutaneous Approach (ICD-10-PCS; principal; 2025-02-09 11:30)
DX: S72.22XA Displaced subtrochanteric fracture of left femur, initial encounter for closed fracture (principal); L97.829 Non-pressure chronic ulcer of other part of left lower leg with unspecified severity; N18.4 Chronic kidney disease, stage 4 (severe); D63.1 Anemia in chronic kidney disease; I50.9 Heart failure, unspecified; Z66 Do not resuscitate; I35.0 Nonrheumatic aortic (valve) stenosis; W19.XXXA Unspecified fall, initial encounter; I87.2 Venous insufficiency (chronic) (peripheral); F03.90 Unspecified dementia, unspecified severity, without behavioral disturbance, psychotic disturbance, mood disturbance, and anxiety; Z79.82 Long term (current) use of aspirin; Z79.899 Other long term (current) drug therapy
CPT/HCPCS: 36415; 71045; 73130; 73502; 80048; 80053; 82607; 82728; 82746; 83540; 85025; 85027; 86850; 86900; 86901; 86923; 93005; 93306; 97162; 99285; C1713; J0131; J0690; J0736; J1171; J1308; J1650; J2003; J2270; J2371; J2704; J2795; J3010; J7120; P9016; Q9957

== ENCOUNTER → 2025-02-07 15:38 | Outpatient (BNV) | payer OTHER, SELFPAY | PROVIDERS: Emergency Provider Emergency Medicine; PCP Family Medicine; Visit Provider Radiology Diagnostic Radiology | DX: S72.352A Displaced comminuted fracture of shaft of left femur, initial encounter for closed fracture (principal); J98.11 Atelectasis; M19.041 Primary osteoarthritis, right hand | CPT/HCPCS: 71045; 73130; 73502 ==

== ENCOUNTER → 2025-02-07 15:56 | Outpatient (BNV) | payer OTHER, SELFPAY | PROVIDERS: Admitting Provider Physician Assistant Medical; Emergency Provider Emergency Medicine; PCP Family Medicine; Visit Provider Internal Medicine Cardiovascular Disease | DX: Z01.818 Encounter for other preprocedural examination (principal); R94.31 Abnormal electrocardiogram [ECG] [EKG] | CPT/HCPCS: 93010 ==

== ENCOUNTER 2025-02-07 16:05 | Outpatient (BNV) | payer OTHER, SELFPAY | END 2025-02-08 07:00 | PROVIDERS: Admitting Provider Physician Assistant Medical; Emergency Provider Emergency Medicine; PCP Family Medicine; Visit Provider Internal Medicine Cardiovascular Disease | DX: I35.0 Nonrheumatic aortic (valve) stenosis (principal) | CPT/HCPCS: 93306 ==

== ENCOUNTER 2025-02-07 16:05 | Outpatient (BNV) | payer OTHER, SELFPAY | END 2025-02-09 09:29 | PROVIDERS: Admitting Provider Physician Assistant Medical; Emergency Provider Emergency Medicine; PCP Family Medicine; Visit Provider Internal Medicine Cardiovascular Disease | DX: R07.9 Chest pain, unspecified (principal) | CPT/HCPCS: 93010 ==

== ENCOUNTER → 2025-02-07 16:05 | Outpatient (BNV) | payer OTHER, SELFPAY | PROVIDERS: Admitting Provider Physician Assistant Medical; Emergency Provider Emergency Medicine; PCP Family Medicine; Visit Provider Physician Assistant Medical | DX: S72.22XA Displaced subtrochanteric fracture of left femur, initial encounter for closed fracture (principal); I83.009 Varicose veins of unspecified lower extremity with ulcer of unspecified site; L97.909 Non-pressure chronic ulcer of unspecified part of unspecified lower leg with unspecified severity | CPT/HCPCS: 99223; 99232; 99499 ==

== ENCOUNTER → 2025-02-07 16:05 | Outpatient (BNV) | payer OTHER, SELFPAY | PROVIDERS: Admitting Provider Physician Assistant Medical; Emergency Provider Emergency Medicine; PCP Family Medicine; Visit Provider Physician Assistant | DX: S72.22XA Displaced subtrochanteric fracture of left femur, initial encounter for closed fracture (principal); I83.009 Varicose veins of unspecified lower extremity with ulcer of unspecified site; L97.909 Non-pressure chronic ulcer of unspecified part of unspecified lower leg with unspecified severity | CPT/HCPCS: 99222 ==

== ENCOUNTER 2025-02-22 08:17 | Outpatient (REF) | payer OTHER, SELFPAY ==
--- NOTE | ~2025-02-22 | XR_ITS ---
EXAMINATION: XR FEMUR 2 VIEWS LEFT HISTORY: S72.22XA - Displaced subtrochanteric fracture of left femur, initial... COMPARISON: Comparison is made with the prior examination dated 02/07/2025. FINDINGS: AP and lateral views of the left femur are submitted. The bones are osteopenic. There has been internal fixation of the previously seen fracture of the proximal femur with a compression screw and intramedullary mikayla. There is mild narrowing of the hip joint. There is severe osteoarthritis of the knee. The soft tissues are unremarkable. XR/XR femur LT 2V IMPRESSION: Internal fixation of the previously seen fracture of the proximal femur. Electronically signed by: Fermin Kemp MD 02/22/2025 12:11 PM EDT
== END 2025-02-22 08:18 | disposition home or self-care (01) ==
LOC: HO.HOSX 08:17
PROVIDERS: Visit Provider Physician Assistant
DX: S72.22XD Displaced subtrochanteric fracture of left femur, subsequent encounter for closed fracture with routine healing (principal); X58.XXXD Exposure to other specified factors, subsequent encounter
CPT/HCPCS: 73552; 99212

== ENCOUNTER 2025-02-22 10:30 | Outpatient (AMB) | payer OTHER, SELFPAY ==
--- NOTE | 2025-02-22 10:40 | A.OFFVIS_ITS ---
Intake Visit Reasons: PO-left hip IM Nail 02/08/25 with NE Intake Note: Pancho is a 89 year old female who presents today with her grand daughter for a post operative appointment status post left hip Intramedullary Nail done on 02/08/[address] Medley. Grand daughter states patient complains of pain when attending P.T and when transferring from strechter to bed. Allergies penicillin V Allergy (Intermediate, Verified 02/22/25 10:55) Rash Penicillins Allergy (Intermediate, Verified 02/22/25 10:55) RASH clindamycin Allergy (Verified 02/22/25 10:55) Swelling doxycycline Allergy (Verified 02/22/25 10:55) Rash From Lipitor Allergy (Intermediate, Uncoded 02/22/25 10:55) ITCHING From Toprol XL Allergy (Intermediate, Uncoded 02/22/25 10:55) ITCHING gabapentin Allergy (Unknown, Uncoded 02/22/25 10:55) Unknown lipitor Allergy (Unknown, Uncoded 02/22/25 10:55) Unknown lyrica Allergy (Unknown, Uncoded 02/22/25 10:55) Unknown HPI HPI PO-left hip IM Nail 02/08/25 with NE: Details: Ms. Carolina Prince is an 89-year-old female who presents to the office today status post left hip IM nail performed on 02/08/[address] Medley. She is accompanied today by her granddaughter. Patient has a past medical history significant for severe dementia at baseline. She presents via EMS transport from [facility]. She is somnolent on today's visit. The granddaughter states that the patient did work with PT twice that she is aware of but is unsure if the patient is actively working with them or participating. [facility] Medical History (Updated 02/19/25 @ 00:00 by Haley Zavaleta) Venous stasis ulcers History of high cholesterol Hx of chronic arthritis Seasonal allergies Peripheral edema GERD (gastroesophageal reflux disease) Aortic stenosis CKD (chronic kidney disease) Dementia Surgical History H/O tubal ligation H/O cataract extraction Social History Household Members: Family Housing: Apartment Do you presently have visiting nurse or other home services: Yes Alcohol intake: never Comment: COUNTS CORRECT Patient Tobacco Use Status: Never used Tobacco service: No Review of Systems Const All systems reviewed & are unremarkable except as noted in HPI and below Physical Exam Const General: cooperative, healthy appearing and no acute distress Resp Effort & Inspection: normal respiratory effort and able to speak in complete sentences Extrem Other: Left femur incision sites are clean dry and intact. [place] intact. No surrounding erythema or drainage. No signs of infection. Patient is unable to follow commands for additional exam findings. Psych Appearance: grossly normal Mental Status: mental status grossly normal Attitude: cooperative Assessment & Plan Assessment & Plan (1) Closed subtrochanteric fracture: Code(s): S72.23XA - Displaced subtrochanteric fracture of unspecified femur, initial encounter for closed fracture Category: Medical Qualifiers: Encounter type: initial encounter Fracture alignment: displaced Laterality: left Qualified Code(s): S72.22XA - Displaced subtrochanteric frac ture of left femur, initial encounter for closed fracture Plan Ms. Carolina Prince is an 89-year-old female who presents to the office today status post left hip IM nail performed on 02/08/[address] Medley. She is accompanied today by her granddaughter. Patient has a past medical history significant for severe dementia at baseline. She presents via EMS transport from [facility]. She is somnolent on today's visit. The granddaughter states that the patient did work with PT twice that she is aware of but is unsure if the patient is actively working with them or participating. While in the office today, linsey were removed and Steri-Strips were applied. I had placed on the consult form for the patient to continue working with physical therapy on glute core quad strengthening as well as gait training. Additionally, I did have a discussion with the patient's granddaughter that it is unfortunate the patient has become more somnolent and that this is quite common after hip fracture. We discussed decline after hip fracture and expectations. She will continue DVT ppx for a total of 6 weeks postoperatively. She will follow up in 4 weeks with repeat x-rays, sooner if needed. X-rays of the femur which were obtained while in the office today and were reviewed by me, Alexandra Villanueva PA-C, revealed intact orthopedic hardware with routine healing. Orders: Orders XR femur LT 2V Today S72.22XA - Displaced subtrochanteric fracture of left femur, initial encounter for closed fracture Coding Level of Care Code Global (44442) Diagnoses Closed subtrochanteric fracture S72.22XA Encounter type: initial encounter Fracture alignment: displaced Laterality: left
--- OUTSIDE RECORDS SUMMARY | 2025-02-22 12:40 | XMS_ITS | Encounter Summary ---
Author Organization [employer] Address [address] [place] [address] Care Team Providers Care Water Commissioner Name Role Phone Cecilia Finch DO Primary Care Provider [phone] Reason for Visit * Reason Onset Date Comments Med Refill 11/06/2024 Encounter Details Date Type Department Care Team ([facility] st Contact Info) Description 11/06/2024 Telephone [facility] [address] [place] [address] Cecilia Finch DO [address] [place] [address] Med Refill Social History Tobacco Use Types Packs/Day Years Used Date Smoking Tobacco: Former Cigarettes Passive Smoke Exposure: Never Smokeless Tobacco: Never Alcohol Use Standard Drinks/Week Comments Never 0 (1 standard drink = 0.6 oz pur e alcohol) Depression Answer Date Recorded Patient Health Questionnaire-9 Score 1 06/11/2022 Housing Stability Answer Date Recorded What is your housing situation today? I have dee rm 10/13/[address] you li ve. Do you have problems with any of the following? None of the above 10/13/2024 Food Insecurity Answer Date Recorded Within the past 12 months, y ou worried that your food would run out before you got money to buy more: Never True 10/13/2024 Within the past 12 months,th e food you bought just didn't last and you didn't have enough money to get more: Never True Transportation Answer Date Recorded In the past 12 months, has l ack of transportation kept you from medical appts, meetings, work or from getting things needed for daily living? No 10/13/2024 Utilities Answer Date Recorded In the past 12 months, has t he electric, gas, oil or water company threatened to shut off services in your home? No 10/13/2024 Depression Answer Date Recorded Patient Health Questionnaire-2 Score 1 06/11/2022 Internet Access Answer Date Recorded Internet Access Q1 Yes 10/13/2024 Internet Access Q2 Not on file 10/13/2024 Comments No Sex and Gender Information Value Date Recorded Sex Assigned at Female 03/02/2022 10:16 AM EDT Legal Sex Female 10:16 AM EDT Gender Identity Female 03/02/2022 10:16 AM EDT Sexual Orientation Straight 03/02/2022 10 :16 AM EDT documented as of this encounter Miscellaneous Notes * Telephone Encounter - Cecilia Martinez LPN - 11/06/2024 1:54 PM EDT Medication pended to PCP for approval. * Telephone Encounter - Beranbe Harris - 11/06/2024 1:40 PM EDT TC from pt requesting medication refill. Medications needing refill : nystatin (Nystop) [id number] UNIT/GM powder To be sent to: [facility] [address] [place] [address] documented in this encounter Plan of Treatment Upcoming Encounters Date Type Department Care Team (Late st Contact Info) Description 03/02/2025 11:00 AM EDT Telemedicine [facility] [address] [place] [address] Surekha George RN documented as of this encounter Visit Diagnoses Not on filedocumented in this encounter Additional Health Concerns Assessment Noted Time PHQ-9 Depression Total Score: 1 06/11/19 23 1:29 PM EST documented as of this encounter Care Teams Water Commissioner Relationship Specialty Start Date End Date Cecilia Finch DO [address] [place] [address] PCP - General Family Medicine 01/09/13 documented as of this encounter
--- OUTSIDE RECORDS SUMMARY | 2025-02-22 12:40 | XMS_ITS | Encounter Summary ---
Author Organization [employer] Address [address] [place] [address] Care Team Providers Care [employer] Developer Name Role Phone Cecilia Finch DO Primary Care Provider [phone]- [phone] Reason for Visit * Reason Comments Med Refill Encounter Details Date Type Department Care Team ([facility] st Contact Info) Description 01/10/2025 Refill [facility] [address] [place] [address] Cecilia Finch DO [address] [place] [address] Social History Tobacco Use Types Packs/Day Years Used Date Smoking Tobacco: Former Cigarettes Passive Smoke Exposure: Past Smokeless Tobacco: Never Alcohol Use Standard Drinks/Week [...] t he electric, gas, oil or water [employer] threatened to shut off services in your [...] AM EDT documented as of this encounter Plan of Treatment Upcoming Encounters Date Type Department Care Team (Late st Contact Info) Description 03/02/2025 11:00 AM EDT Telemedicine [facility] [address] [place] [address] Surekha George RN documented as of this encounter Visit Diagnoses Not on filedocumented in this encounter Additional Health Concerns Assessment Noted Time PHQ-9 Depression Total Score: 1 06/11/19 23 1:29 PM EST documented as of this encounter Care Teams [employer] Developer Relationship Specialty Start Date End Date Cecilia Finch DO [address] [place] [address] PCP - General Family Medicine 01/09/13 documented as of this encounter
--- OUTSIDE RECORDS SUMMARY | 2025-02-22 12:40 | XMS_ITS | Encounter Summary ---
Author Organization [employer] Address [address] [facility] 7t h Floor [place] [id number] Care Team Providers Care Chef Concierge Name Role Phone Cecilia Finch DO Primary Care Provider [phone] Reason for Visit * Reason Comments Med Refill Encounter Details Date Type Department Care Team ([facility] st Contact Info) Description 11/15/2024 Refill [facility] MEDICINE [address] [place] [address] Cecilia Finch DO [address] [place] [address] Facial swelling; Type 2 diabetes mellitus with stage 3 chronic kidney disease, without long-term current use of insulin, unspecified whether stage 3a or 3b CKD (CMS/HCC) Social History Tobacco Use Types Packs/Day Years Used Date Smoking Tobacco: Former Cigarettes Passive Smoke Exposure: Never Smokeless Tobacco: Never Alcohol Use Standard Drinks/Week Comments Never 0 (1 standard drink = 0.6 oz pur e alcohol) Depression Answer Date Recorded Patient Health Questionnaire-9 Score 1 06/11/2022 Housing Stability Answer Date Recorded What is your housing situation today? I have ede rm 10/13/[address] you [...] Info) Description 03/02/2025 11:00 AM EDT Telemedicine [facility] MEDICINE [address] [place] [address] Surekha George RN documented as of this encounter Visit Diagnoses Diagnosis Facial swelling Swelling, mass, or lump in head and neck Type 2 diabetes mellitus with stage 3 chronic kidney disease, without long-term current use of insulin, unspecified whether stage 3a or 3b CKD (HCC) documented in this encounter Additional Health Concerns Assessment Noted Time PHQ-9 Depression Total Score: 1 06/11/19 23 1:29 PM EST documented as of this encounter Care Teams Chef Concierge Relationship Specialty Start Date End Date Cecilia Finch DO [address] [place] [address] PCP - General Family Medicine 01/09/13 documented as of this encounter
--- OUTSIDE RECORDS SUMMARY | 2025-02-22 12:40 | XMS_ITS | Encounter Summary ---
Author Organization [employer] Address [address] [facility] 7t h Floor [place] [id number] Care Team Providers Care Factory Machine Computer Operator Name Role Phone Cecilia Finch DO Primary Care Provider [phone] Reason for Visit * Reason Comments Med Refill Encounter Details Date Type Department Care Team ([facility] st Contact Info) Description 11/01/2024 Refill [facility] MEDICINE [address] [place] [address] Cecilia Finch DO [address] [place] [address] Social History Tobacco Use Types Packs/Day Years [...] t he electric, gas, oil or water [employer] threatened to shut off services in your [...] Info) Description 03/02/2025 11:00 AM EDT Telemedicine [facility] MEDICINE [address] [place] [address] Surekha George RN documented as of this encounter Visit Diagnoses Not on filedocumented in this encounter Additional Health Concerns Assessment Noted Time PHQ-9 Depression Total Score: 1 06/11/19 23 1:29 PM EST documented as of this encounter Care Teams Factory Machine Computer Operator Relationship Specialty Start Date End Date Cecilia Finch DO [address] [place] [address] PCP - General Family Medicine 01/09/13 documented as of this encounter
--- OUTSIDE RECORDS SUMMARY | 2025-02-22 12:40 | XMS_ITS | Encounter Summary ---
Author Organization [employer] Address [address] [facility] [address]t [place] [address] Care Team Providers Care Compounding And Finishing Supervisor Name Role Phone Cecilia Finch DO Primary Care Provider [phone] Reason for Visit * Reason Comments Med Refill Encounter Details Date Type Department Care Team ([facility] st Contact Info) Description 01/10/2025 Refill [facility] MEDICINE [address] [place] [address] Cammie Huertas MD [address] [place] [address] Social History Tobacco Use Types Packs/Day Years [...] Info) Description 03/02/2025 11:00 AM EDT Telemedicine [facility] MEDICINE [address] [place] [address] Surekha George RN documented as of this encounter Visit Diagnoses Not on filedocumented in this encounter Additional Health Concerns Assessment Noted Time PHQ-9 Depression Total Score: 1 06/11/19 23 1:29 PM EST documented as of this encounter Care Teams Compounding And Finishing Supervisor Relationship Specialty Start Date End Date Cecilia Finch DO [address] [place] [address] PCP - General Family Medicine 01/09/13 documented as of this encounter
--- OUTSIDE RECORDS SUMMARY | 2025-02-22 12:40 | XMS_ITS | Encounter Summary ---
Author Organization [employer] Address [address] [facility] 7t h Floor [place] [id number] Care Team Providers Care Data Operations Director Name Role Phone Cecilia Finch DO Primary Care Provider [phone] Reason for Visit * Reason Comments Med Refill Encounter Details Date Type Department Care Team ([facility] st Contact Info) Description 03/22/2024 Refill [facility] MEDICINE [address] [place] [address] Cecilia Finch DO [address] [place] [address] Social History Tobacco Use Types Packs/Day Years [...] the past 12 months, has t he [employer], [employer], oil or water company threatened to shut [...] Description 03/02/2025 11:00 AM EDT Telemedicine [facility] MEDICINE [address] [place] [address] Surekha George RN documented as of this encounter Visit Diagnoses Not on filedocumented in this encounter Additional Health Concerns Assessment Noted Time PHQ-9 Depression Total Score: 1 06/11/19 23 1:29 PM EST documented as of this encounter Care Teams Data Operations Director Relationship Specialty Start Date End Date Cecilia Finch DO [address] [place] [address] PCP - General Family Medicine 01/09/13 documented as of this encounter
--- OUTSIDE RECORDS SUMMARY | 2025-02-22 12:40 | XMS_ITS | Clinical Summary ---
Author Organization [employer] Address [address] [place] [address] Care Team Providers Care Milk Inspector Name Role Phone Cecilia Finch DO Primary Care Provider Allergies Active Allergy Reactions Criticality Noted Date Comments Atorvastatin 11/03/2011 Other reaction(s): myalgia, Other (see comments) Clindamycin Rash,Hives Low 10/06/2024 Other Reaction(s): Not available Doxycycline Itching,Hives 08/15/2024 Other Reaction(s): Not available Gabapentin Hives,Rash Low 02/03/2011 Other Reaction(s): Not available Metoprolol Dizziness,Hives 11/03/2011 Other Reaction(s): Not available Penicillins Hives,Rash Low 11/03/2011 Other Reaction(s): Not available Pregabalin Unknown 11/03/2011 Other reaction(s): weakness Other Reaction(s): Not available Medications furosemide (Lasix) 40 MG tablet 023 Active docusate sodium (Colace) 100 MG capsule TAKE 1 CAPSULE BY MOUTH TWICE A DAY IF NEEDED 60 capsule 5 024 Active baclofen (Lioresal) 10 MG tablet TAKE 1/2 TABLET BY MOUTH AT BEDTIME NEEDED FOR MUSCLE SPASM/PAIN 30 tablet 1 024 Active cholecalciferol VITAMIN D (Vitamin D-3) 50 MCG (1999) capsuleIndicatio ns:Vitamin D deficiency TAKE 1 CAPSULE BY MOUTH DAILY. 28 capsule 11 025 Active omeprazole (PriLOSEC) [address] capsule TAKE 1 CAPSULE BY MOUTH EVERY DAY BEFORE A MEAL 28 capsule 11 025 Active donepezil (Aricept) 5 MG tablet TAKE 1 TABLET BY MOUTH DAILY AT BEDTIME. 30 tablet 11 Active polyethylene glycol, PEG, 3350 (Glycolax) 17 GM/SCOOP powder TAKE (17G) BY MOUTH EVERY DAY MIXED WITH 8 0Z. WATER, JUICE, SODA, COFFEE OR TEAT IF NEEDED FOR CONSTIPATION 238 g 3 025 Active topiramate 50 MG tablet TAKE 1 TABLET BY MOUTH DAILY AT BEDTIME 28 tablet 11 Active rosuvastatin (Crestor) 10 MG tablet TAKE 1 TABLET BY MOUTH ONCE DAILY 30 tablet 11 Active EPINEPHrine (Epipen) 0.3 MG/0.3ML injection syringeIndicatio ns:Urticaria, acute Inject 0.3 mL (0.3 mg) as directed 1 (one) time for 1 dose. Inject into upper leg. Call 911 after use. 1 each Active famotidine (Pepcid) 20 MG tablet Take 1 tablet (20 mg) by mouth 2 times daily for 14 days. 28 tablet Active hydrOXYzine HCl (Atarax) 25 MG tabletIndication s:Allergic reaction due to antibacterial drug Take 1 tablet (25 mg) by mouth every 6 (six) hours if needed for itching. 30 tablet 1 Active QUEtiapine (SEROquel) 50 MG tablet Take 1 tablet (50 mg) by mouth at bedtime. 30 tablet 3 025 2025 Active melatonin 5 MG tablet Take 1-2 tablets (5-10 mg) by mouth at bedtime. Take 2 hours before bedtime 60 tablet 3 Active Emollient (Eucerin Advanced Repair) cream Apply 1 Application topically 2 times daily. 454 g Active ammonium lactate (Amlactin) 12 % cream Apply topically Once per day. As directed 025 Active acetaminophen (GNP 8 Hour Arthritis Relief) 650 MG ER tablet TAKE 1 TABLET BY MOUTH EVERY 8 HOURS NEEDED FOR PAIN AND/OR FEVER. 90 tablet 2 025 Active Diclofenac Sodium 1 % gel Apply 2 g topically if needed in the morning, at noon, in the evening, and at bedtime (pain). 150 g 2 025 Active nitroglycerin (Nitrostat) 0.[address] 1 TABLET BY SUBLINGUAL ROUTE AT THE 1ST SIGN OF SYMPTOMS, MAY REPEAT EVERY 5 MIN X 3 DOSES; CALL 911 IF NO RELIEF 30 tablet 025 Active cetirizine (ZyrTEC) 10 MG tabletIndication s:Facial swelling TAKE 1/2 TABLET BY MOUTH DAILY IN THE MORNING 15 tablet 5 025 Active Aspirin EC Adult Low Dose 81 MG EC tabletIndication s:Type 2 diabetes mellitus with stage 3 chronic kidney disease, without long-term current use of insulin, unspecified whether stage 3a or 3b CKD (HCC) TAKE 1 TABLET BY MOUTH ONCE DAILY 28 tablet 5 025 Active triamcinolone (Kenalog) 0.1 % ointmentIndicati ons:Atopic dermatitis, unspecified type Apply topically 2 times daily. 80 g 025 Active diphenhydrAMINE- zinc acetate (Benadryl Extra Strength) creamIndications :Atopic dermatitis, unspecified type Apply topically if needed in the morning, at noon, and at bedtime for itching. 35 g 025 2025 Active furosemide (Lasix) 40 MG tablet Take 1 tablet (40 mg) by mouth Once per day for 7 days. Take in addition to 40mg daily from cardiology 7 tablet 025 Active oxyCODONE (Roxicodone) 5 MG immediate release tabletIndication s:Chronic low back pain, unspecified back pain laterality, unspecified whether sciatica present Take 1 tablet (5 mg) by mouth every 6 (six) hours if needed for severe pain for up to 28 days. 112 tablet 025 2024 Active diphenhydrAMINE (Banophen) 25 MG tablet TAKE 1 TABLET BY MOUTH EVERY 6 HOURS NEEDED FOR ITCHING. 30 tablet 025 Active nystatin (Nystop) 091821 UNIT/GM powder APPLY 1 APPLICATION TOPICALLY TO THE AFFECTED AREA(S) TWICE DAILY. 15 g 025 Active triamcinolone (Kenalog) 0.1 % ointment Apply topically 2 times daily. 30 g 1 025 2024 Discontinued(M ed list cleanup (will not trigger notification to Pharmacy)) Banophen 25 MG tablet TAKE 1 TABLET BY MOUTH EVERY 6 HOURS NEEDED FOR ITCHING. 30 tablet 2024 Discontinued(R eorder (will not trigger notification to Pharmacy)) oxyCODONE (Roxicodone) 5 MG immediate release tabletIndication s:Chronic low back pain, unspecified back pain laterality, unspecified whether sciatica present Take 1 tablet (5 mg) by mouth every 6 (six) hours if needed for severe pain for up to 28 days. Do not start before December 26, 2024. 112 tablet 2024 nystatin (Nystop) 173154 UNIT/GM powder APPLY 1 APPLICATION TOPICALLY TO THE AFFECTED AREA(S) TWICE DAILY. 15 g 2024 Discontinued nystatin (Nystop) 916352 UNIT/GM powder APPLY 1 APPLICATION TOPICALLY TO THE AFFECTED AREA(S) TWICE DAILY. 15 g 2024 Discontinued cephalexin (Keflex) 500 MG capsule Take 1 capsule (500 mg) by mouth 3 times daily for 7 days. 21 capsule 2024 sulfamethoxazole -trimethoprim (Bactrim DS) 800-160 MG tablet Take 1 tablet by mouth 2 times daily for 7 days. 14 tablet 2024 nystatin (Nystop) 810825 UNIT/GM powder APPLY 1 APPLICATION TOPICALLY TO THE AFFECTED AREA(S) TWICE DAILY. 15 g 2024 Discontinued Active Problems Problem Noted Date Diagnosed Date Long-term current use of opiate analgesic 2024 Preseptal cellulitis of right eye 12/14/2024 Assessment & Plan (12/14/2024 1:17 PM EDT): Plan: Diagnostic Evaluation: Careful clinical assessment to exclude orbital involvement (no pain with eye movement, no proptosis, no vision changes). Due to non adherence to recommended antibx regimen and persistent redness x 2 weeks with antibx I am going to add on an antibx. I am going to add Bactrim BID x 5 days for MRSA Coverage. I also advised increasing Keflex to BID at this point d/t no identified side effects or allergic responses. I advised continued f/u with eye doctor to ensure resolution Pt will rtc if sx do not improve or worsen with tx Atopic dermatitis 12/14/2024 Assessment & Plan (12/14/2024 1:21 PM EDT): Atopic dermatitis vs. 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 Assessment & Plan (09/23/2022 9:23 AM EDT): Patient with classic sundowning symptoms, explained this to granddaughter Day night cycles Gentle but firm redirection and re-orientation Information given for [place] [employer] for additional resources Sounds like a combination potentially of Alz and vascular dementia Trial of Aricept 5mg nightly to start Refer to [facility] neurology for additional management Nonrheumatic aortic valve insufficiency 06/11/19 Chronic headaches 06/11/2022 Healthcare maintenance 06/11/2022 Type 2 diabetes mellitus 05/21/2022 Assessment & Plan (12/14/2024 1:14 PM EDT): Lab Results Component Value Date HGBA1C 5.5 12/13/2024 Pt A1c at goal <7 Treatment Goals: A1c goal: <7% FBG goal: <130 2 hour post prandial goal: <180 Advised Low sugar and Low carb diet. Counseled regarding self-monitoring of blood glucose. Counseled re: potential co-morbidities including cardiovascular disease. Counseled re: potential co-morbidities include neuropathy and retinopathy. Counseled re: potential co-morbidities include nephropathy. Generalized osteoarthritis 05/21/2022 Aortic stenosis 05/21/2022 Cerebrovascular small vessel disease 05/21/2022 BMI 28.0-28.9,adult 05/21/2022 Renal osteodystrophy 09/09/2020 History of hypertension 02/20/2015 Assessment & Plan (09/23/2022 9:25 AM EDT): Blood pressure control is important in microvascular disease Explained this to granddaughter, she will monitor BP and let us know if it is >140/90 at home so that medication Lisinopril can be adjusted upward from 2.5mg daily to target that goal Hyperlipidemia 02/20/2015 Osteopenia 02/20/2015 Stage 3 chronic kidney disease (CMS/HCC) 015 Chronic low back pain 02/20/2015 Osteoarthritis 02/20/2015 Resolved Problems Problem Noted Date Diagnosed Date Resolved Date Hallucinations 06/11/2022 06/11/2022 Lumbago 05/21/2022 06/11/2022 Benign hypertensive renal disease 09/01/2020 11/30/2022 Edema 09/01/2020 11/30/2022 Elevated fasting glucose 02/20/2015 Encounters Date Type Department Care Team Description 02/12/2025 Telephone [facility] [address] [place] [address] Cecilia Finch DO Care Coordination 02/08/2025 Refill [facility] [address] [place] [address] Cecilia Finch DO 02/07/2025 Orders Only [facility] External Provider, [facility] 02/07/2025 Refill [facility] [address] [place] [address] Cecilia Finch DO 02/02/2025 Refill [facility] [address] [place] [address] Cecilia Finch DO 02/02/2025 Refill [facility] [address] [place] [address] Cecilia Finch DO 01/31/2025 Refill [facility] [address] [place] [address] Cecilia Finch, Chronic low back pain, unspecified back pain laterality, unspecified whether sciatica present (Primary Dx) 01/31/2025 Refill [facility] [address] [place] [address] Cecilia Finch DO 01/30/2025 11:45 AM EDT Office Visit [facility] [address] [place] [address] Cecilia Finch, Venous stasis dermatitis (Primary Dx); Superinfection; Nonrheumatic aortic valve stenosis; Type 2 diabetes mellitus with stage 3 chronic kidney disease, unspecified whether aerodynamics engineer insulin use, unspecified whether stage 3a or 3b CKD ([facility]) 01/30/2025 Travel 01/30/2025 Telephone [facility] [address] [place] [address] Cecilia Finch DO Chart Prep 01/24/2025 Telephone [facility] [address] [place] [address] Cecilia Finch, Appointment Request 01/24/2025 Refill [facility] [address] [place] [address] Cecilia Finch, 01/16/2025 Refill [facility] [address] [place] [address] Cecilia Finch, 01/16/2025 Refill [facility] [address] [place] [address] Cammie Huertas MD 01/11/2025 Refill [facility] [address] [place] [address] Cecilia Finch, 01/10/2025 Refill [facility] [address] [place] [address] Cecilia Finch, 01/10/2025 Refill [facility] [address] [place] [address] Cammie Huertas MD 01/03/2025 Refill [facility] [address] [place] [address] Cecilia Finch, 01/03/2025 Refill [facility] [address] [place] [address] Cecilia Finch, 12/22/2024 11:00 AM EDT Telemedicine [facility] [address] [place] [address] Surekha George RN Long-term current use of opiate analgesic 12/22/2024 Travel 12/21/2024 Refill [facility] [address] [place] [address] Cecilia Finch, 12/20/2024 Refill [facility] [address] [place] [address] Cecilia Finch DO Chronic low back pain, unspecified back pain laterality, unspecified whether sciatica present 12/20/2024 Refill [facility] [address] [place] [address] Cecilia Finch, 12/14/2024 Refill [facility] [address] [place] [address] Cecilia Finch DO 12/13/2024 3:15 PM EDT Office Visit [facility] [address] [place] [address] Radha Toure CNP Type 2 diabetes mellitus with stage 3 chronic kidney disease, unspecified whether aerodynamics engineer insulin use, unspecified whether stage 3a or 3b CKD ([facility]) (Primary Dx); Atopic dermatitis, unspecified type; Preseptal cellulitis of right eye 12/13/2024 Travel 12/13/2024 Refill [facility] [address] [place] [address] Cecilia Finch DO 12/12/2024 Telephone [facility] [address] [place] [address] Radha Toure CNP Chart Prep 12/06/2024 Patient Outreach [facility] [address] [place] [address] Cecilia Finch DO Pre-visit Planning (SDOH was already completed) 12/04/2024 Telephone [facility] [address] [place] [id number] Cecilia Finch DO Referral; Medication Question 11/28/2024 Refill [facility] [address] [place] [address] Cecilia Finch DO Chronic low back pain, unspecified back pain laterality, unspecified whether sciatica present 11/22/2024 Refill [facility] [address] [place] [address] Cecilia Finch, Facial swelling; Type 2 diabetes mellitus with stage 3 chronic kidney disease, without long-term current use of insulin, unspecified whether stage 3a or 3b CKD (CMS/HCC) from Last 3 Months Immunizations Immunization Administration Dates Next Due Hep B, adult 10/06/2018,05/06/2018,01/07/2018 Influenza injectable quadriv alent IIV4 with preservative 02/20/2015 Influenza injectable quadriv alent preservative free 05/28/2023,02/07/2019 Influenza, IIV3, injectable 05/13/2009 Influenza, Unspecified 05/13/2009 Pfizer Covid-19 Vaccine 12+ 09/15/2021,,11/20/2020 Pfizer Covid-19 Vaccine 12+ samanta-sucrose (Sanchez Cap) 09/15/2021 Pneumococcal Conjugate PCV 13 02/19/2016 Pneumococcal Conjugate PCV 20 11/30/2022 Pneumococcal Polysaccharide PPSV23 07/25/2012,,02/09/2001 TD (adult), 2 Lf tetanus tox oid, preservative free, adsorbed 05/28/2023,02/09/2001 Tdap 07/25/2012 Zoster, Recombinant 11/06/2020,01/04/2020 Zoster, live 11/06/2020,01/04/2020,06/21/2014 Social History Tobacco Use Types Packs/Day Years Used Date Smoking Tobacco: Former Cigarettes Passive Smoke Exposure: Past Smokeless Tobacco: Never Tobacco Cessation:Counseling Given: Not Answered Alcohol Use Standard Drinks/Week Comments Never 0 [...] Orientation Straight 03/02/2022 10 :16 AM EDT Last Filed Vital Signs Vital Sign Reading Time Taken Comments Blood Pressure 124/70 01/30/2025 12:00 PM EDT Pulse 81 01/30/2025 12:00 PM EDT Temperature 36.8 C (98.3 F) 01/30/2025 12:00 PM EDT Respiratory Rate 20 01/30/2025 12:00 PM EDT Oxygen Saturation 96% 01/30/2025 12:00 PM EDT Inhaled Oxygen Concentration - - Weight 72.6 kg (160 lb) 01/30/2025 12:00 PM EDT Height 162.6 cm (5' 4 ) 01/30/2025 12:00 PM EDT Body Mass Index 27.46 01/30/2025 12:00 PM EDT Plan of Treatment Upcoming Encounters Date Type Department Care Team (Late st Contact Info) Description 03/02/2025 11:00 AM EDT Telemedicine [facility] [address] [place] [id number] Surekha George, [facility] Health Maintenance Due Date Last Done Comments Diabetes: Foot Exam 1945 Eye Exam 1945 RSV Patients and Patients Aged 60 years or older (1 - 1-dose 75+ series) 2011 Depression Screening 06/11/2023 06/11/2022, 06/11/19 23 COVID-19 Vaccine ( season) 2025 09/15/2021, 09/15/2021, 12/10/2020, Additional history exists Influenza Vaccine (#1) 2025 , 02/07/2019, 02/20/2015, Additional history exists Lipid Panel 05/08/2025 05/08/2024, 05/04, 06/11/2022, Additional history exists Diabetes: Hemoglobin A1C 07/30/2025 025, 12/13/2024, 10/04/2024, Additional history exists SDOH Screening 10/13/2025 10/13/2024 Alcohol/Substance Use Screening 12/13/2025 12/13/2024 Tobacco Screening 01/30/2026 01/30/2025 DTaP/Tdap/Td Vaccines (3 - Td or Tdap) 05/28/2033 05/28/2023, 07/25/2012, 02/09/2001 Hepatitis B Vaccines Completed 10/06/2018, 05/06/2018, 01/07/2018 Zoster Vaccines Completed 11/06/2020, 07/0 10/2020, 01/04/2020, Additional history exists Pneumococcal Vaccine: 50+ Years Completed 11/30/2022, 02/19/2016, 07/25/2012, Additional history exists HIB Vaccines Aged Out No longer eligi ble based on patient's age to complete this topic HPV Vaccines Aged Out No longer eligi ble based on patient's age to complete this topic Hepatitis A Vaccines Aged Out No long er eligible based on patient's age to complete this topic IPV Vaccines Aged Out No longer eligi ble based on patient's age to complete this topic Meningococcal B Vaccine Aged Out No l onger eligible based on patient's age to complete this topic Meningococcal Vaccine Aged Out No lizzie lance eligible based on patient's age to complete this topic RSV under 20 months Aged Out No longe r eligible based on patient's age to complete this topic Rotavirus Vaccines Aged Out No longer eligible based on patient's age to complete this topic Procedures Procedure Name Priority Date/Time Associated Diagnosis Comments FL GUIDANCE IN OR Routine 02/09/2025 1:2 0 PM EDT XR CHEST 1 VIEW Routine 02/07/2025 3:49 PM EDT XR HIP LEFT WITH PELVIS 1 VIEW Routine 02/07/2025 3:34 PM EDT XR HAND 3+ VIEWS RIGHT Routine 3:26 PM EDT COMPREHENSIVE METABOLIC PANEL Routine 02/07/2025 3:10 PM EDT CBC WITH AUTO DIFFERENTIAL Routine 02/07/2025 3:10 PM EDT POCT GLYCATED HEMOGLOBIN, TOTAL Routine 01/30/2025 12:03 PM EDT Type 2 diabetes mellitus with stage 3 chronic kidney disease, unspecified whether aerodynamics engineer insulin use, unspecified whether stage 3a or 3b CKD (CMS/HCC) POCT GLUCOSE Routine 01/30/2025 12:02 PM EDT Type 2 diabetes mellitus with stage 3 chronic kidney disease, unspecified whether fci insulin use, unspecified whether stage 3a or 3b CKD (CMS/HCC) POCT GLYCATED HEMOGLOBIN, TOTAL Routine 12/13/2024 3:10 PM EDT Type 2 diabetes mellitus with stage 3 chronic kidney disease, unspecified whether aerodynamics engineer insulin use, unspecified whether stage 3a or 3b CKD (CMS/HCC) POCT GLUCOSE Routine 12/13/2024 3:09 PM EDT Type 2 diabetes mellitus with stage 3 chronic kidney disease, unspecified whether aerodynamics engineer insulin use, unspecified whether stage 3a or 3b CKD (CMS/HCC) LIPID PANEL, STANDARD Routine 05/08/2024 2:21 PM EST Type 2 diabetes mellitus with stage 3 chronic kidney disease, unspecified whether aerodynamics engineer insulin use, unspecified whether stage 3a or 3b CKD (CMS/HCC) Essential hypertension RUQ pain from Last 3 Months or Most Recently Relevant to Health Maintenance Results * FL Guidance in OR (02/09/2025 1:20 PM EDT) Anatomical Region Laterality Modality X-Ray Angiograph y 02/09/2025 1:20 PM EDT Narrative 02/09/2025 3:48 PM EDT [address] [address] Fluoroscopy Report Signed Patient: Pancho Nation MR#: [id number] : 1935 Acct:[id number] Age/Sex: 89 / F ADM Date: 02/07/25 Loc: HO.S3 383-[address]: Marc Cifuentes MD Ordering Physician: Craig Medley MD Date of Service: 02/09/25 Procedure(s): FL guidance in OR Accession Number(s): [id number] cc: Craig Medley MD; Cecilia Finch DO Reason for Exam: fracture left hip EXAMINATION: XR FLUOROSCOPY WITH IMAGES CLINICAL INFORMATION: Fracture left hip COMPARISON: None available. TECHNIQUE: Fluoroscopy provided to: Dr. Medley Fluoroscopy time: 1.3 minutes DAP: 0.5 mGycm2 Images: 4 FINDINGS: 4 images demonstrate internal fixation with intramedullary mikayla and screw of a proximal femoral fracture. Improved position and alignment as compared to previous. FL/FL guidance in OR IMPRESSION: Status post internal fixation of a proximal femoral fracture. Electronically signed by: Perry Meadows MD 02/09/2025 03:45 PM EDT Dictated By: Perry Meadows MD Signed By: <Electronically signed by Perry Meadows MD in OV> 02/09/25 1545 DD/ 1320 TD/TT: 02/09/25 1413 [employer] Operator: Procedure Note Donotuseinterpreter, Image - 02/09/[address] [address] Fluoroscopy Report Signed Patient: Alvarez NationaMR#: [id number] : 1935cct:[id number] Age/Sex: 89 / FADM Date: 02/07/25 Loc: HO.S3 383-[address]: Marc Cifuentes MD Ordering Physician: Craig Medley MD Date of Service: 02/09/25 Procedure(s): FL guidance in OR Accession Number(s): [id number] cc: Craig Medley MD; Cecilia Finch DO Reason for Exam: fracture left hip EXAMINATION: XR FLUOROSCOPY WITH IMAGES CLINICAL INFORMATION: Fracture left hip COMPARISON: None available. TECHNIQUE: Fluoroscopy provided to: Dr. Medley Fluoroscopy time: 1.3 minutes DAP: 0.5 mGycm2 Images: 4 FINDINGS: 4 images demonstrate internal fixation with intramedullary mikayla and screw of a proximal femoral fracture. Improved position and alignment as compared to previous. FL/FL guidance in OR IMPRESSION: Status post internal fixation of a proximal femoral fracture. Electronically signed by: Perry Meadows MD 02/09/2025 03:45 PM EDT RP Dictated By: Perry Meadows MD Signed By: <Electronically signed by Perry Meadows MD in OV> 02/09/25 1545 DD/ 1320 TD/TT: 02/09/25 1413 [employer] Operator: ANN [facility] External Provider IMG IR PROCEDURES Final Result * XR Chest 1 View (02/07/2025 3:49 PM EDT) Anatomical Region Laterality Modality Chest Radiographic Yarelis ging 02/07/2025 3:49 PM EDT Narrative 02/07/2025 3:57 PM EDT [address] [address] XRay Report Signed Patient: Pancho Nation MR#: [id number] : 1935 Acct:[id number] Age/Sex: 89 / F ADM Date: 02/07/25 Loc: HO.ED Attending Dr: Ordering Physician: Darius Valera DO Date of Service: 02/07/25 Procedure(s): XR chest 1V Accession Number(s): [id number] cc: Cecilia Finch DO; Darius Valera DO Reason for Exam: pre op EXAMINATION: XR CHEST CLINICAL INFORMATION: pre op COMPARISON: None available. TECHNIQUE: AP view of the chest was obtained. FINDINGS: Mild elevation of the left hemidiaphragm. The cardiac, hilar, and mediastinal contours are normal. Aortic mural calcifications. Lungs demonstrate linear opacity in the retrocardiac region, likely discoid atelectasis. Lungs otherwise clear. No pneumothorax or effusion. No focal osseous or soft tissue abnormality. XR/XR chest 1V IMPRESSION: No active pulmonary disease. Electronically signed by: Sy Hough MD 02/07/2025 03:55 PM EDT RP Dictated By: Sy Hough MD Signed By: <Electronically signed by Sy Hough MD in OV> 02/07/25 1555 DD/ 1549 TD/TT: 02/07/25 1544 [employer] Operator: Procedure Note Donotuseinterpreter, Image - 02/07/[address] [address] XRay Report Signed Patient: Shahid NationR#: [id number] : 1935cct:[id number] Age/Sex: 89 / FADM Date: 02/07/25 Loc: .ED Attending Dr: Ordering Physician: Darius Valera DO Date of Service: 02/07/25 Procedure(s): XR chest 1V Accession Number(s): [id number] cc: Cecilia Finch DO; Darius Valera DO Reason for Exam: pre op EXAMINATION: XR CHEST CLINICAL INFORMATION: pre op COMPARISON: None available. TECHNIQUE: AP view of the chest was obtained. FINDINGS: Mild elevation of the left hemidiaphragm. The cardiac, hilar, and mediastinal contours are normal. Aortic mural calcifications. Lungs demonstrate linear opacity in the retrocardiac region, likely discoid atelectasis. Lungs otherwise clear. No pneumothorax or effusion. No focal osseous or soft tissue abnormality. XR/XR chest 1V IMPRESSION: No active pulmonary disease. Electronically signed by: Sy Hough MD 02/07/2025 03:55 PM EDT RP Dictated By: Sy Hough MD Signed By: <Electronically signed by Sy Hough MD in OV> 02/07/25 1555 DD/ 1549 TD/TT: 02/07/25 1544 [employer] Operator: [facility] External Provider IMG XR PROCEDURES Final Result * XR Hip left with Pelvis 1 view (02/07/2025 3:34 PM EDT) Anatomical Region Laterality Modality Lower Extremities, Hip Bilateral Radiograp hic Imaging 02/07/2025 3:34 PM EDT Narrative 02/07/2025 4:03 PM EDT [address] [address] XRay Report Signed Patient: Pancho Nation MR#: [id number] : 1935 Acct:[id number] Age/Sex: 89 / F ADM Date: 02/07/25 Loc: .ED Attending Dr: Ordering Physician: Darius Valera DO Date of Service: 02/07/25 Procedure(s): XR hip LT w PEL1V Accession Number(s): [id number] cc: Cecilia Finch DO; Darius Valera DO Reason for Exam: r/o fx hip EXAMINATION: XR HIP, LEFT CLINICAL INFORMATION: r/o fx hip COMPARISON: None available. TECHNIQUE: Two views of the left hip. Pelvis 1 view. FINDINGS: There is a acute fracture involving the proximal left femoral shaft, mildly comminuted with a dominant oblique fracture plane. There is medial and posterior displacement of the distal bone by shaft width, with prominent overriding of the fracture fragments. There is lateral/anterior angulation of the proximal bone. The left femoral head is well-seated in the acetabulum. Mild left hip arthritis. Normal articulation of the right hip joint. No diastasis of the SI joints or symphysis pubis. No acute pubic rami fractures identified. No acute fractures identified of the pelvis. Bowel gas and stool projected over the sacrum and coccyx limiting evaluation. No abnormal soft tissue calcification. XR/XR hip LT w PEL1V IMPRESSION: Acute, mildly comminuted proximal femoral shaft fracture with bony displacement, angulation of the fracture fragments as detailed above.. Electronically signed by: Perry Meadows MD 02/07/2025 04:00 PM EDT RP Dictated By: Perry Meadows MD Signed By: <Electronically signed by Perry Meadows MD in OV> 02/07/25 1600 DD/ 1534 TD/TT: 02/07/25 1544 [employer] Mill Operator: ANN Procedure Note Donotuseinterpreter, Image - 02/07/[address] [address] XRay Report Signed Patient: Shahid NationR#: [id number] : 1935cct:[id number] Age/Sex: 89 / FADM Date: 02/07/25 Loc: HO.ED Attending Dr: Ordering Physician: Darius Valera DO Date of Service: 02/07/25 Procedure(s): XR hip LT w PEL1V Accession Number(s): [id number] cc: Cecilia Finch DO; Darius Valera DO Reason for Exam: r/o fx hip EXAMINATION: XR HIP, LEFT CLINICAL INFORMATION: r/o fx hip COMPARISON: None available. TECHNIQUE: Two views of the left hip. Pelvis 1 view. FINDINGS: There is a acute fracture involving the proximal left femoral shaft, mildly comminuted with a dominant oblique fracture plane. There is medial and posterior displacement of the distal bone by shaft width, with prominent overriding of the fracture fragments. There is lateral/anterior angulation of the proximal bone. The left femoral head is well-seated in the acetabulum. Mild left hip arthritis. Normal articulation of the right hip joint. No diastasis of the SI joints or symphysis pubis. No acute pubic rami fractures identified. No acute fractures identified of the pelvis. Bowel gas and stool projected over the sacrum and coccyx limiting evaluation. No abnormal soft tissue calcification. XR/XR hip LT w PEL1V IMPRESSION: Acute, mildly comminuted proximal femoral shaft fracture with bony displacement, angulation of the fracture fragments as detailed above.. Electronically signed by: Perry Meadows MD 02/07/2025 04:00 PM EDT RP Dictated By: Perry Meadows MD Signed By: <Electronically signed by Perry Meadows MD in OV> 02/07/25 1600 DD/ 1534 TD/TT: 02/07/25 1544 [employer] Mill Operator: ANN [facility] External Provider IMG XR PROCEDURES Final Result * XR Hand 3+ Views Right (02/07/2025 3:26 PM EDT) Anatomical Region Laterality Modality Upper Extremities, Hand Right Radiogra phic Imaging 02/07/2025 3:26 PM EDT Narrative 02/07/2025 4:00 PM EDT [address] [address] XRay Report Signed Patient: Pancho Nation MR#: [id number] : 1935 Acct:[id number] Age/Sex: 89 / F ADM Date: 02/07/25 Loc: .ED Attending Dr: Ordering Physician: Darius Valera DO Date of Service: 02/07/25 Procedure(s): XR hand RT min 3V Accession Number(s): [id number] cc: Cecilia Finch DO; Darius Valera DO Reason for Exam: trauma EXAMINATION: XR HAND, RIGHT CLINICAL INFORMATION: trauma COMPARISON: None available. TECHNIQUE: PA, lateral, and oblique views of the right hand. FINDINGS: Mild diffuse osteopenia. No acute fracture, dislocation, or suspicious bone lesion. There is normal alignment. 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 Mild degenerative arthritis in the first MCP joint and first CMC joint. Carpal bones intact and normally aligned. No soft tissue abnormalities. XR/XR hand RT min 3V IMPRESSION: 1. No acute bony or soft tissue abnormalities. Electronically signed by: Sy Hough MD 02/07/2025 03:57 PM EDT RP Dictated By: Sy Hough MD Signed By: <Electronically signed by Sy Hough MD in OV> 02/07/25 1557 DD/ 1526 TD/TT: 02/07/25 1544 [employer] Operator: Procedure Note Donotuseinterpreter, Image - 02/07/2025 [place] [address] XRay Report Signed Patient: Magdiel Nation#: [id number] : 1935cct:[id number] Age/Sex: 89 / FADM Date: 02/07/25 Loc: HO.ED Attending Dr: Ordering Physician: Darius Valera DO Date of Service: 02/07/25 Procedure(s): XR hand RT min 3V Accession Number(s): [id number] cc: Cecilia Finch DO; Darius Valera DO Reason for Exam: trauma EXAMINATION: XR HAND, RIGHT CLINICAL INFORMATION: trauma COMPARISON: None available. TECHNIQUE: PA, lateral, and oblique views of the right hand. FINDINGS: Mild diffuse osteopenia. No acute fracture, dislocation, or suspicious bone lesion. There is normal alignment. 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 Mild degenerative arthritis in the first MCP joint and first CMC joint. Carpal bones intact and normally aligned. No soft tissue abnormalities. XR/XR hand RT min 3V IMPRESSION: 1. No acute bony or soft tissue abnormalities. Electronically signed by: Sy Hough MD 02/07/2025 03:57 PM EDT RP Dictated By: Sy Hough MD Signed By: <Electronically signed by Sy Hough MD in OV> 02/07/25 1557 DD/ 1526 TD/TT: 02/07/25 1544 Strain[employer] Operator: [facility] External Provider IMG XR PROCEDURES Final Result * (ABNORMAL) CBC auto differential (02/07/2025 3:10 PM EDT) White Blood Count 8.2 4.8 - 10.8 X10*3/uL [facility] Red Blood Count 2.90(L) 4.20 - 5.50 X10*6/uL [facility] Hemoglobin 8.6(L) 12.0 - 16.0 g/dl [facility] Hematocrit 25.8(L) 37.0 - 47.0 % [facility] Mean Corpuscular Volume 89.0 80.0 - 98.0 fL [facility] Mean Corpuscular Hemoglobin 29.7 27.0 - 33.0 pg [facility] Mean Corpuscular HGB Conc 33.3 31.0 - 35.0 g/dl [facility] Red Cell Distribution Width 15.6 11.0 - 16.0 % [facility] Platelet Count 195 160 - 400 X10*3/uL [facility] Mean Platelet Volume 9.7 9.4 - 12.3 fL [facility] Neutrophils Percent Auto 78.2(H) 45 - 73 % [facility] Imm Gran Pct Auto 1.1(H) 0.0 - 0.4 % [facility] Lymphocytes Percent Auto 10.7(L) 20 - 40 % [facility] Monocytes Percent Auto 9.4 2 - 11 % [facility] Eosinophils Percent Auto 0.0 0 - 4 % [facility] Basophils Percent Auto 0.6 0 - 2 % [facility] NRBC Pct Auto 0.0 0.0 - 0.2 /100WBC [facility] Neutrophils Absolute Auto 6.4 2.0 - 8.3 x10*3/uL [facility] Imm Gran Abs Auto 0.09(H) 0.00 - 0.03 X10*3/uL [facility] Lymphocytes Absolute Auto 0.9(L) 1.2 - 4.9 X10*3/uL [facility] Monocytes Absolute Auto 0.8 0.1 - 1.2 X10*3/uL [facility] Eosinophils Absolute Auto 0.0 0.0 - 0.4 X10*3/uL [facility] Basophils Absolute Auto 0.1 0.0 - 0.2 X10*3/uL [facility] NRBC Abs Auto 0.000 0.0 - 0.012 X10*3/uL [facility] 02/07/2025 3:10 PM EDT 02/07/2025 3:13 PM EDT us Generic External Data Provider LAB BLOOD ORDERAB LES Final Result [facility] [address] [place] [address] [phone] * (ABNORMAL) Comprehensive Metabolic Panel (02/07/2025 3:10 PM EDT) Sodium 142 135 - 145 mmol/L [facility] Potassium 4.4 3.3 - 5.1 mmol/L [facility] Chloride 115(H) 96 - 108 mmol/L [facility] Carbon Dioxide 22 22 - 29 mmol/L [facility] Anion Gap 9(L) 12 - 20 [facility] Urea Nitrogen (BUN) 22(H) 9 - 16 mg/dL [facility] Creatinine, Serum 1.64(H) 0.5 - 1.4 mg/dL [facility] Creatinine Clr Calc Pharmacy 23.6 [facility] Comment:Provided height and weight: 162.56 cm,75.9 kg.eGFR (calculated from the MDRD study equation) and eCrCl(calculated from the Cockcroft-Gault equation) are based ondifferent parameters and may not yield comparable results.If eCrCl result is absurd, please check patient'sheight/weight. Estimated Glomerular Filt Rate 30 [facility] Comment:Chronic Kidney Disea se: Estimated GFR < 60 mL/min/1.80s3Talyyz Kidney Disease: Estimated GFR < 15 mL/min/1.73m2 Glucose 151(H) 60 - 115 mg/dL [facility] Calcium 9.0 8.4 - 10.2 mg/dL [facility] Bilirubin, Total 0.7 0.0 - 1.0 mg/dL [facility] Aspartate Amino Transferase 31 5 - 31 U/L [facility] Alanine Aminotransferase 8 0 - 31 U/L [facility] Total Protein 5.9(L) 6.5 - 8.0 g/dL [facility] Albumin Level 2.9(L) 3.5 - 5.0 g/dL [facility] Alkaline Phosphatase 161(H) 39 - 117 U/L [facility] 02/07/2025 3:10 PM EDT 02/07/2025 3:13 PM EDT us Generic External Data Provider LAB BLOOD ORDERAB LES Final Result [facility] [address] [place] [phone] * POCT Hgb A1c (01/30/2025 12:03 PM EDT) Only the most recent of2 resultswithin the time period is included. Hemoglobin A1C 5.6 4.0 - 5.7 % QC Media Lot # [id number] Lot# Expiration Date Blood 01/30/2025 12:0 3 PM EDT us Cecilia Finch DO POINT OF CARE TEST ENTER/DERREK T ORDERABLES Final Result * (ABNORMAL) POCT Glucose (01/30/2025 12:02 PM EDT) Only the most recent of2 resultswithin the time period is included. Glucose Blood, POC 209(A) 60 - 200 mg/dL QC Media Lot # [id number] Lot# Expiration Date [id number] Blood Capillary blood specimen / Unknown 01/30/2025 12:02 PM EDT Cecilia Finch DO POINT OF CARE TEST ENTER/DERREK T ORDERABLES Final Result * Lipid Panel, Standard (05/08/2024 2:21 PM EST) Triglycerides 63 <150 mg/dL [facility] Comment:Desirable Triglyceri de: less than 150 mg/dLBorderline High Triglyceride 150-199 mg/dLHigh Triglyceride: 200-499 mg/dLVery High Triglyceride: greater than or equal to 5OO mg/dL Cholesterol 161 <200 mg/dL [facility] Comment:Desirable Cholestero l: less than 200 mg/dLBorderline High Cholesterol: 200-239 mg/dLHigh Cholesterol: greater than 239 mg/dL LDL Cholesterol Calculated 77 <100 mg/dL [facility] Comment:Desirable LDL: less than 100 mg/dLNear Optimal/Above Optimal LDL: 110- 129 mg/dLBorderline High LDL: 130-159 mg/dLHigh LDL: 160-189 mg/dLVery High LDL: greater than or equal to 190 mg/dL HDL Cholesterol 72 >40 mg/dL [facility] Comment:Desirable HDL: great er than 40 mg/dL Note: This HDL assay may give artificially low results in patients with liver disease. Blood Venous blood specimen / Unknown 05/08/2024 2:21 PM EST 05/08/2024 2:21 PM EST Cecilia Finch DO LAB BLOOD ORDERABLES Final R esult [facility] [address] [place], [place] [phone] from Last 3 Months or Most Recently Relevant to Health Maintenance Insurance [facility] OPTIONS (HMO D-SNP) [place] [id number] Care Teams Milk Inspector Relationship Specialty Start Date End Date Cecilia Finch DO [address] [place] [phone] PCP - General Family Medicine 01/09/13
--- OUTSIDE RECORDS SUMMARY | 2025-02-22 12:40 | XMS_ITS | Encounter Summary ---
Author Organization [employer] Address [address] [facility] 7t h Floor [place] [id number] Care Team Providers Care Perinatology Physician Name Role Phone Cecilia Finch DO Primary Care Provider [phone]- [phone] Reason for Visit * Reason Comments Med Refill Encounter Details Date Type Department Care Team ([facility] st Contact Info) Description 03/14/2024 Refill [facility] MED[facility]INE [address] [place] [address] Cecilia Finch DO [address] [place] [address] Social History Tobacco Use Types Packs/Day Years [...] the past 12 months, has t he [employer], [employer], oil or water company threatened to shut [...] Info) Description 03/02/2025 11:00 AM EDT Telemedicine [facility] MEDICINE [address] [place] [address] Surekha George RN documented as of this encounter Visit Diagnoses Not on filedocumented in this encounter Additional Health Concerns Assessment Noted Time PHQ-9 Depression Total Score: 1 06/11/19 23 1:29 PM EST documented as of this encounter Care Teams Perinatology Physician Relationship Specialty Start Date End Date Cecilia Finch DO [address] [place] [address] PCP - General Family Medicine 01/09/13 documented as of this encounter
--- OUTSIDE RECORDS SUMMARY | 2025-02-22 12:40 | XMS_ITS | Encounter Summary ---
Author Organization [employer] Address [address] [facility] 7t [place] [address] Care Team Providers Care Supervisor Lead Refinery Name Role Phone Cecilia Finch DO Primary Care Provider [phone]- [phone] Reason for Visit * Reason Onset Date Comments Hospital Follow-up 11/08/2023 Encounter Details Date Type Department Care Team ([facility] st Contact Info) Description 11/08/2023 Telephone [facility] MEDICINE [address] [place] [address] Cecilia Finch DO [address] [place] [address] Hospital Follow-up Social History Tobacco Use Types [...] from pt requesting a HDF appt. Hospital: [facility] Date of admission: 11/03/23 Discharge date: 11/07/23 Diagnosed: chest pain and fluid retention documented in this encounter Plan of Treatment Upcoming Encounters Date Type Department Care Team (Late st Contact Info) Description 03/02/2025 11:00 AM EDT Telemedicine [facility] MEDICINE [address] [place] [address] Surekha George RN documented as of this encounter Visit Diagnoses Not on filedocumented in this encounter Additional Health Concerns Assessment Noted Time PHQ-9 Depression Total Score: 1 06/11/19 23 1:29 PM EST documented as of this encounter Care Teams Supervisor Lead Refinery Relationship Specialty Start Date End Date Cecilia Finch DO [address] [place] [address] PCP - General Family Medicine 01/09/13 documented as of this encounter
--- OUTSIDE RECORDS SUMMARY | 2025-02-22 12:41 | XMS_ITS | Encounter Summary ---
Author Organization [employer] Address [address] [facility] [address]t [place] [address] Care Team Providers Care Machine Precision Etcher Name Role Phone Cecilia Finch DO Primary Care Provider [phone]- [phone] Reason for Visit * Reason Comments Med Refill Encounter Details Date Type Department Care Team ([facility] st Contact Info) Description 02/07/2025 Refill [facility] MEDICINE [address] [place] [address] Cecilia Finch DO [address] [place] [address] Social History Tobacco Use Types Packs/Day Years [...] t he electric, gas, oil or water [employer] threatened to shut off services in your [...] Info) Description 03/02/2025 11:00 AM EDT Telemedicine [facility] MEDICINE [address] [place] [address] Surekha George RN documented as of this encounter Visit Diagnoses Not on filedocumented in this encounter Additional Health Concerns Assessment Noted Time PHQ-9 Depression Total Score: 1 06/11/19 23 1:29 PM EST documented as of this encounter Care Teams Machine Precision Etcher Relationship Specialty Start Date End Date Cecilia Finch DO [address] [place] [address] PCP - General Family Medicine 01/09/13 documented as of this encounter
--- OUTSIDE RECORDS SUMMARY | 2025-02-22 12:41 | XMS_ITS | Encounter Summary ---
Author Organization [employer] Address [address] [facility] 7t [place] [address] Care Team Providers Care Artificial Breeding Technician Name Role Phone Cecilia Finch DO Primary Care Provider [phone]- [phone] Reason for Visit * Reason Comments Med Refill Encounter Details Date Type Department Care Team ([facility] st Contact Info) Description 12/13/2024 Refill [facility] MEDICINE [address] [place] [address] Cecilia Finch DO [address] [place] [address] Social History Tobacco Use Types Packs/Day Years [...] t he electric, gas, oil or water [employer] threatened to shut off services in your [...] Info) Description 03/02/2025 11:00 AM EDT Telemedicine [facility] MEDICINE [address] [place] [address] Surekha George RN documented as of this encounter Visit Diagnoses Not on filedocumented in this encounter Additional Health Concerns Assessment Noted Time PHQ-9 Depression Total Score: 1 06/11/19 23 1:29 PM EST documented as of this encounter Care Teams Artificial Breeding Technician Relationship Specialty Start Date End Date Cecilia Finch DO [address] [place] [address] PCP - General Family Medicine 01/09/13 documented as of this encounter
--- OUTSIDE RECORDS SUMMARY | 2025-02-22 12:41 | XMS_ITS | Encounter Summary ---
Author Organization [employer] Address [address] [facility] 7t [place] [address] Care Team Providers Care Freight Team Associate Name Role Phone Cecilia Finch DO Primary Care Provider [phone]- [phone] Reason for Visit * Reason Onset Date Comments Med Refill 10/11/2024 Encounter Details Date Type Department Care Team ([facility] st Contact Info) Description 10/11/2024 Telephone [facility] MEDICINE [address] [place] [address] Cecilia Finch DO [address] [place] [address] Med Refill Social History Tobacco Use Types [...] Telephone Encounter - Cecilia Martinez LPN - 10/11/2024 9:38 AM EDT Medication pended to PCP. * Telephone Encounter - Rodrigue Tracy - 10/11/2024 9:31 AM EDT TC from pt requesting medication refill. Medications needing refill: nystatin (Nystop) [id number] UNIT/GM powder To be sent to: [facility] [address] [place] [address] documented in this encounter Plan of Treatment Upcoming Encounters Date Type Department Care Team (Late st Contact Info) Description 03/02/2025 11:00 AM EDT Telemedicine [facility] MEDICINE [address] [place] [address] Surekha George, ALLEN documented as of this encounter Visit Diagnoses Not on filedocumented in this encounter Additional Health Concerns Assessment Noted Time PHQ-9 Depression Total Score: 1 06/11/19 23 1:29 PM EST documented as of this encounter Care Teams Freight Team Associate Relationship Specialty Start Date End Date Cecilia Finch DO [address] [place] [address] PCP - General Family Medicine 01/09/13 documented as of this encounter
--- OUTSIDE RECORDS SUMMARY | 2025-02-22 12:41 | XMS_ITS | Encounter Summary ---
Author Organization [employer] Address [address] [facility] 7t [place] [address] Care Team Providers Care Assistant Media Buyer Name Role Phone Cecilia Finch DO Primary Care Provider [phone]- [phone] Reason for Visit * Reason Comments Med Refill Encounter Details Date Type Department Care Team ([facility] st Contact Info) Description 12/21/2024 Refill [facility] MEDICINE [address] [place] [address] Cecilia Finch DO [address] [place] [address] Social History Tobacco Use Types Packs/Day Years [...] t he electric, gas, oil or water [employer] threatened to shut off services in your [...] Info) Description 03/02/2025 11:00 AM EDT Telemedicine [facility] MEDICINE [address] [place] [address] Surekha George RN documented as of this encounter Visit Diagnoses Not on filedocumented in this encounter Additional Health Concerns Assessment Noted Time PHQ-9 Depression Total Score: 1 06/11/19 23 1:29 PM EST documented as of this encounter Care Teams Assistant Media Buyer Relationship Specialty Start Date End Date Cecilia Finch DO [address] [place] [address] PCP - General Family Medicine 01/09/13 documented as of this encounter
--- OUTSIDE RECORDS SUMMARY | 2025-02-22 12:41 | XMS_ITS | Encounter Summary ---
Author Organization [employer] Address [address] [facility] 7t h Floor [place] [id number] Care Team Providers Care Mechanical Service Specialist Name Role Phone Cecilia Finch DO Primary Care Provider [phone]- [phone] Reason for Visit * Reason Comments Med Refill Encounter Details Date Type Department Care Team ([facility] st Contact Info) Description 10/04/2024 Refill [facility] MEDICINE [address] [place] [address] Cecilia Finch DO [address] [place] [address] Social History Tobacco Use Types Packs/Day Years [...] the past 12 months, has t he [employer], [employer], oil or water company threatened to shut off services in your home? No 09/21/2023 Depression Answer Date Recorded Patient Health Questionnaire-2 Score 1 06/11/2022 Comments No Sex and Gender Information Value [...] EDT Telemedicine [facility] MEDICINE [address] [place] [address] Surekha George RN documented as of this encounter Visit Diagnoses Not on filedocumented in this encounter Additional Health Concerns Assessment Noted Time PHQ-9 Depression Total Score: 1 06/11/19 23 1:29 PM EST documented as of this encounter Care Teams Mechanical Service Specialist Relationship Specialty Start Date End Date Cecilia Finch DO [address] [place] [address] PCP - General Family Medicine 01/09/13 documented as of this encounter
--- OUTSIDE RECORDS SUMMARY | 2025-02-22 12:41 | XMS_ITS | Encounter Summary ---
Author Organization [employer] Address [address] [facility] [address]t [place] [address] Care Team Providers Care Director Social Name Role Phone Cecilia Finch DO Primary Care Provider Reason for Visit * Reason Onset Date Comments referral 11/16/2022 Encounter Details Date Type Department Care Team ([facility] st Contact Info) Description 11/16/2022 Telephone [facility] MEDICINE [address] [place] [address] Cecilia Finch DO [address] [place] [address] referral Social History Tobacco Use Types Packs/Day Years Used Date Smoking Tobacco: Never Passive Smoke Exposure: Never Smokeless Tobacco: Never Alcohol Use Standard Drinks/Week Comments Never 0 (1 standard drink = 0.6 oz pur e alcohol) Depression Answer Date Recorded Patient Health Questionnaire-9 Score 1 06/11/2022 Depression Answer Date Recorded Patient Health Questionnaire-2 Score 1 06/11/2022 Comments Unknown Sex and Gender Information Value Date Recorded Sex Assigned at Female 03/02/2022 10:16 AM EDT Legal Sex Female 10:16 AM EDT Gender Identity Female 03/02/2022 10:16 AM EDT Sexual Orientation Straight 03/02/2022 10 :16 AM EDT documented as of this encounter Miscellaneous Notes * Telephone Encounter - Aleksey Granger - 11/16/2022 2:26 PM EDT Tc from pt daughter requesting a call from nurse or provider in regards to referral for Neurology made on August. Daughter states that facility inform that they do not take senior over 65 years old withDementia. Please contact pt daughter at [phone] documented in this encounter Plan of Treatment Upcoming Encounters Date Type Department Care Team (Late st Contact Info) Description 03/02/2025 11:00 AM EDT Telemedicine [facility] MEDICINE [address] [place] [address] Surekha George RN documented as of this encounter Visit Diagnoses Not on filedocumented in this encounter Additional Health Concerns Assessment Noted Time PHQ-9 Depression Total Score: 1 06/11/19 23 1:29 PM EST documented as of this encounter Care Teams Director Social Relationship Specialty Start Date End Date Cecilia Finch DO [address] [place] [address] PCP - General Family Medicine 01/09/13 documented as of this encounter
--- OUTSIDE RECORDS SUMMARY | 2025-02-22 12:41 | XMS_ITS | Encounter Summary ---
Author Organization [employer] Address [address] [facility] [address] [place] [address] Care Team Providers Care Banjo Repair Person Name Role Phone Cecilia Finch DO Primary Care Provider [phone]- [phone] Reason for Visit * Reason Comments Med Refill Encounter Details Date Type Department Care Team ([facility] st Contact Info) Description 12/20/2024 Refill [facility] [address] [place] [address] Cecilia Finch DO [address] [place] [address] Social History Tobacco Use Types Packs/Day Years [...] t he electric, gas, oil or water [employer] threatened to shut off services in your [...] Info) Description 03/02/2025 11:00 AM EDT Telemedicine [facility] [address] [place] [address] Surekha George RN documented as of this encounter Visit Diagnoses Not on filedocumented in this encounter Additional Health Concerns Assessment Noted Time PHQ-9 Depression Total Score: 1 06/11/19 23 1:29 PM EST documented as of this encounter Care Teams Banjo Repair Person Relationship Specialty Start Date End Date Cecilia Finch DO [address] [place] [address] PCP - General Family Medicine 01/09/13 documented as of this encounter
--- OUTSIDE RECORDS SUMMARY | 2025-02-22 12:41 | XMS_ITS | Encounter Summary ---
Author Organization [employer] Address [address] [facility] [address] h [address] [place] [id number] Care Team Providers Care Education Manager Name Role Phone Cecilia Finch DO Primary Care Provider [phone]- [phone] Reason for Visit * Reason Comments Med Refill Encounter Details Date Type Department Care Team ([facility] st Contact Info) Description 01/11/2025 Refill [facility] [address] [place] [address] Cecilia Finch DO [address] [place] [address] Social History Tobacco Use Types Packs/Day Years [...] t he electric, gas, oil or water [email or web address] threatened to shut off services in your [...] Info) Description 03/02/2025 11:00 AM EDT Telemedicine [facility] [address] [place] [address] Surekha George RN documented as of this encounter Visit Diagnoses Not on filedocumented in this encounter Additional Health Concerns Assessment Noted Time PHQ-9 Depression Total Score: 1 06/11/19 23 1:29 PM EST documented as of this encounter Care Teams Education Manager Relationship Specialty Start Date End Date Cecilia Finch DO [address] [place] [address] PCP - General Family Medicine 01/09/13 documented as of this encounter
--- OUTSIDE RECORDS SUMMARY | 2025-02-22 12:41 | XMS_ITS | Clinical Summary ---
Author Organization [facility] Address [address] [place] [address] Phone Care Team Providers Care Lifestyle Director Name Role Phone Cecilia Finch DO Primary Care Provider Unava ilable Allergies Active Allergy Reactions Criticality Noted Date Comments Gabapentin Other (see comments) 09/01/2020 Atorvastatin Other (see comments) 09/01/2020 Metoprolol Other (see comments) 09/01/2020 Penicillin V Other (see comments) 09/01/2020 Pregabalin Other (see comments) 09/01/2020 Medications rosuvastatin (Crestor) 10 MG tablet Take 1 tablet by mouth 1 (one) time each day Active polyethylene glycol (MiraLax) 17 GM/SCOOP powder 1 packet by Other route if needed Active nitroglycerin (Nitrostat) 0.4 MG SL tablet as directed Activ e ergocalciferol (VITAMIN D-2) 1.25 MG (69404 UT) capsule Take 1 capsule by mouth 1 (one) time per week Active docusate sodium (Colace) 100 MG capsule Take 1 capsule by mouth if needed Active aspirin (ST CELINE) 81 MG EC tablet 1 tablet 1 (one) time each day Active acetaminophen (Tylenol 8 Hour) 650 MG 8 hr tablet Take 1 tablet by mouth 4 (four) times a day Active omeprazole (PriLOSEC) [address] capsule Take 1 capsule by mouth 1 (one) time each day Active baclofen (LIORESAL) 10 MG tablet Take 1 tablet by mouth if needed 01/13/2021 Active Calcium Citrate + D3 Maximum 315-250 MG-UNIT tablet Take 1 tablet by mouth 1 (one) time each day 04/02/2021 Active oxyCODONE (ROXICODONE) 5 MG immediate release tablet Take 1 tablet by mouth if needed 2021 Active donepezil (ARICEPT) 5 MG tablet Take 5 mg by mouth every night Active topiramate (TOPAMAX) 25 MG tablet Take 25 mg by mouth in the morning and 25 mg in the evening. Active furosemide (LASIX) 40 MG tablet 01/04/2024 Active Active Problems Problem Noted Date Diagnosed Date Stage 3b chronic kidney disease 01/17/2024 Nonrheumatic aortic valve insufficiency 06/11/19 Chronic low back pain 06/11/2022 Headache 06/11/2022 Patient encounter status 06/11/2022 Unspecified dementia, unspec ified severity, without behavioral disturbance, psychotic disturbance, mood disturbance, and anxiety 06/11/2022 Essential hypertension 05/21/2022 Generalized osteoarthritis 05/21/2022 Hyperlipidemia 05/21/2022 Obese class I 05/21/2022 Osteopenia 05/21/2022 Small vessel cerebrovascular disease 05/21/2022 Type 2 diabetes mellitus 05/21/2022 Stage 3a chronic kidney disease 09/09/2020 Renal osteodystrophy 09/09/2020 Benign hypertensive renal disease 09/01/2020 Edema 09/01/2020 Immunizations Immunization Administration Dates Next Due Hepatitis B 10/06/2018,05/06/2018,01/07/2018 Influenza, Quadrivalent, Preservative Free 05/28,02/07/2019 Influenza, Quadrivalent, With Preservative 02/20 Influenza, Unspecified 05/13/2009 Pfizer SARS-COV-2 09/15/2021,12/10/2020,11/21/19 21 Pneumococcal Conjugate 13-Valent 02/19/2016 Pneumococcal Conjugate Pcv 20 11/30/2022 Pneumococcal Polysaccharide 07/25/2012, 3,02/09/2001 Shingrix 11/06/2020,01/04/2020 Td 05/28/2023,02/09/2001 Tdap 07/25/2012 Zoster 06/21/2014 Family History Medical History Relation Comments Diabetes Father Hypertension Father Stroke Father Diabetes Mother Heart disease Mother Hypertension Mother Hypertension Sibling 1 Diabetes Sibling 2 Relation Status Comments Father Mother Sibling 1 Sibling 2 Social History Tobacco Use Types Packs/Day Years Used Date Smoking Tobacco: Former Smokeless Tobacco: Former Alcohol Use Standard Drinks/Week Comments No 0 (1 standard drink = 0.6 oz pur e alcohol) Comments Unknown Sex and Gender Information Value Date Recorded Sex Assigned at Not on file Legal Sex Female 5:14 PM EST Gender Identity Not on file Sexual Orientation Not on file Last Filed Vital Signs Vital Sign Reading Time Taken Comments Blood Pressure 114/62 01/17/2024 4:32 PM EDT Pulse 76 01/17/2024 4:32 PM EDT Temperature - - Respiratory Rate - - Oxygen Saturation 98% 01/17/2024 4:32 PM EDT Inhaled Oxygen Concentration - - Weight 75.8 kg (167 lb) 01/17/2024 4:32 PM EDT Height 157.5 cm (5' 2 ) 08/16/2018 12:00 PM EDT Body Mass Index 30.54 08/16/2018 12:00 PM EDT Plan of Treatment Upcoming Encounters Date Type Department Care Team (Late st Contact Info) Description 04/12/2025 2:15 PM EST Office Visit [facility] [address] [place] [address] Ozzy Lora MD [address] [facility] [address] [place] [phone] Health Maintenance Due Date Last Done Comments Diabetes: Ophthalmology Exam 09/17/2022 Diabetes: Pedal Pulse Checked 09/17/2022 Diabetes: Sensory Foot Exam 09/17/2022 Diabetes: Visual Foot Exam 09/17/2022 Influenza Vaccine (#1) 2025 4, 02/07/2019, 02/20/2015, Additional history exists Diabetes: Hemoglobin A1C 03/15/2025 025, 10/04/2024, 11/25/2023, Additional history exists Hepatitis B Vaccine Aged Out 10/06/2018, 05/06/2018, 01/07/2018 No longer eligible based on patient's age to complete this topic Pneumococcal Vaccine: 50+ Years Completed 11/30/2022, 02/19/2016, 07/25/2012, Additional history exists Pneumococcal Vaccine: Peds (0 to 5 Years) and At-Risk Patients (6 to 49 Years) Discontinued 11/30/2022, 02/19/2016, 07/25/2012, Additional history exists Insurance ([id number]) [facility] ([id number]) Care Teams Lifestyle Director Relationship Specialty Start Date End Date Cecilia Finch DO PCP - General 05/13/20
--- OUTSIDE RECORDS SUMMARY | 2025-02-22 12:41 | XMS_ITS | Encounter Summary ---
Author Organization [employer] Address [address] [facility] [address] [place] [address] Care Team Providers Care Apartment Maintenance Manager Name Role Phone Cecilia Finch DO Primary Care Provider [phone]- [phone] Reason for Visit * Reason Comments Med Refill Encounter Details Date Type Department Care Team ([facility] st Contact Info) Description 02/02/2025 Refill [facility] [address] [place] [address] Cecilia Finch DO [address] [place] [address] Social History Tobacco Use Types Packs/Day Years [...] t he electric, gas, oil or water [employer] threatened to shut off services in your [...] Info) Description 03/02/2025 11:00 AM EDT Telemedicine [facility] [address] [place] [address] Surekha George RN documented as of this encounter Visit Diagnoses Not on filedocumented in this encounter Additional Health Concerns Assessment Noted Time PHQ-9 Depression Total Score: 1 06/11/19 23 1:29 PM EST documented as of this encounter Care Teams Apartment Maintenance Manager Relationship Specialty Start Date End Date Cecilia Finch DO [address] [place] [address] PCP - General Family Medicine 01/09/13 documented as of this encounter
--- OUTSIDE RECORDS SUMMARY | 2025-02-22 12:41 | XMS_ITS | Encounter Summary ---
Author Organization [employer] Address [address] [facility] [address] [place] [address] Care Team Providers Care 3Rd Grade Reading Teacher Name Role Phone Cecilia Finch DO Primary Care Provider Reason for Visit * Reason Onset Date Comments Med Refill 11/13/2022 Encounter Details Date Type Department Care Team (Late st Contact Info) Description 11/13/2022 Telephone [facility] MED[facility]INE [address] [place] [address] Cecilia Finch DO [address] [place] [address] Med Refill Social History Tobacco Use Types [...] encounter Miscellaneous Notes * Telephone Encounter - Fernanda Clark - 11/13/2022 1:54 PM EDT Tc from pt grandchild requesting medication refill on oxyCODONE 5 mg tablet documented in this encounter Plan of Treatment Upcoming Encounters Date Type Department Care Team (Late st Contact Info) Description 03/02/2025 11:00 AM EDT Telemedicine [facility] [address] [place] [address] Surekha George RN documented as of this encounter Visit Diagnoses Not on filedocumented in this encounter Additional Health Concerns Assessment Noted Time PHQ-9 Depression Total Score: 1 06/11/19 23 1:29 PM EST documented as of this encounter Care Teams 3Rd Grade Reading Teacher Relationship Specialty Start Date End Date Cecilia Finch DO [address] [place] [address] PCP - General Family Medicine 01/09/13 documented as of this encounter
--- OUTSIDE RECORDS SUMMARY | 2025-02-22 12:41 | XMS_ITS | Encounter Summary ---
Author Organization [employer] Address [address] [facility] [address] [place] [address] Care Team Providers Care Sewing Room Supervisor Name Role Phone Cecilia Finch DO Primary Care Provider [phone]- [phone] Reason for Visit * Reason Comments Med Refill Encounter Details Date Type Department Care Team ([facility] st Contact Info) Description 01/16/2025 Refill [facility] [address] [place] [address] Cecilia Finch DO [address] [place] [address] Social History Tobacco Use Types Packs/Day Years [...] t he electric, gas, oil or water [employer] threatened to shut off services in your [...] Info) Description 03/02/2025 11:00 AM EDT Telemedicine [facility] [address] [place] [address] Surekha George RN documented as of this encounter Visit Diagnoses Not on filedocumented in this encounter Additional Health Concerns Assessment Noted Time PHQ-9 Depression Total Score: 1 06/11/19 23 1:29 PM EST documented as of this encounter Care Teams Sewing Room Supervisor Relationship Specialty Start Date End Date Cecilia Finch DO [address] [place] [address] PCP - General Family Medicine 01/09/13 documented as of this encounter
== END 2025-02-22 11:18 | disposition home or self-care (01) ==
LOC: HO.HOS 10:30
PROVIDERS: PCP Family Medicine; Visit Provider Physician Assistant
DX: S72.22XA Displaced subtrochanteric fracture of left femur, initial encounter for closed fracture (principal)
CPT/HCPCS: 99024

== ENCOUNTER → 2025-02-22 10:31 | Outpatient (BNV) | payer OTHER, SELFPAY | PROVIDERS: Visit Provider Radiology Diagnostic Radiology | DX: S72.22XA Displaced subtrochanteric fracture of left femur, initial encounter for closed fracture (principal) | CPT/HCPCS: 73552 ==